=== PATIENT | female | born 1960 | race Caucasian/White ===

== ENCOUNTER 2022-10-24 11:48 | Emergency (ER) | payer OTHER ==
--- OUTSIDE RECORDS SUMMARY | 2022-10-24 11:52 | XMS REPORT | Continuity of Care Document ---
:1960 Author Organization [facility] t Address [address] [place] [address] Care Team Providers Name Role Phone Leonel Boucher Attending Clinician Unavailable Doctor Unassigned, Tobias Attending Clinician Unavailable Payers Payer Name Policy Type Policy Number Effective Date Expiration Date S ource Problems Condition Condition Condition Status Onset Resolution Last Treating Co mments Source Name Details Category Date Date Treatment Clinician Date Total knee Total knee Disease Active U nivers replacemen replacemen 6-06 it y of t status t status 00:00: [place] 00 [facility] Knee pain, Knee pain, Disease Active U nivers left left 3-18 ity of 00:00: [place] 00 Medical Branch Allergies, Adverse Reactions, Alerts Allergy Allergy Status Severity Reaction(s) Onset Inactive Treating Comm ents Source Name Type Date Date Clinician Iodine Propensi Active Hives Topical Univers ty to 2-26 ity of adverse 00:00: [place] reaction 00 Medical s to Branch drug Social History Social Habit Start Date Stop Date Quantity Comments Source History of tobacco Cigarette Smoker University of use [facility] Cigarettes smoked 2017-07-26 2017-07-26 Univers ity of current (pack per 00:00:00 00:00:00 ) - Reported Branch Tobacco use and 2017-07-26 2017-07-26 Never used [facility] y of exposure 00:00:00 00:00:00 [facility] Alcohol intake 2017-07-26 2017-07-26 Current University of 00:00:00 00:00:00 non-drinker of [facility] alcohol Branch (finding) Smoking Status Start Date Stop Date Source Current every day smoker 2017-07-26 00:00:00 [facility] [place] [facility] Medications Ordered Filled Start Stop Current Ordering Indication Dosage Frequency Signature Comments Components Source Medication Medication Date Date Medication? Clinician (SIG) Name Name FLUoxetine 2016-08 Yes 40mg Take 40 mg U nivers (PROZAC) 40 2-07 by mouth ity of mg capsule 20:29: daily. [place] 36 Medical Branch zolpidem 2016-08 Yes 10mg Take 10 mg Uni vers (AMBIEN) 10 2-07 by mouth ity of mg tablet 20:29: at [place]time [place] 36 as needed Medical for Branch Insomnia. clonazePAM 2016-08 Yes 2mg Take 2 mg Un [facility] (KLONOPIN) 2-07 by mouth 2 ity of 2 mg tablet 20:29: (two) [place] 36 times Medical daily. Branch buprenorphi 2016-[address] 8 mg Univers ne-naloxone 2-07 under the ity of (SUBOXONE) 20:29: tongue 2 Steven as 8-2 mg 36 (two) Medical sublingual times Branch tablet daily. FERROUS 2016-08 Yes 1{tbl} Take 1 Univer s SULFATE, 2-07 tablet by ity of DRIED 20:29: mouth 2 [place] (IRON, 36 (two) Medical DRIED, times Branch ORAL) daily. DOCOSAHEXAN 2016-08 Yes 1{tbl} Take 1 Un [facility] OIC 2-07 tablet by ity of ACID/EPA 20:29: mouth 2 [place] (FISH OIL 36 (two) Medical ORAL) times Branch daily. oxybutynin 2016-08 Yes 5mg Take 5 mg [facility] chloride 2-07 by mouth 3 ity o f (DITROPAN) 20:29: (three[place] 5 [place] tablet 36 times Medical daily. Branch docusate 2016-08 Yes 100mg Take 100 Univ ers (COLACE) 2-07 mg by ity of 100 mg 20:29: mouth once [place] capsule 36 daily as Medical needed for Branch Constipati on. acetaminoph Yes 1{tbl} Take 1 Un [facility] en-codeine 6-09 tablet by ity of (TYLENOL 00:00: mouth [place] #3) 300-30 00 every 4 Medica l mg tablet (four) Branch hours as needed for Pain (scale 7-10). Immunizations Ordered Filled Immunization Date Status Comments [facility] e Immunization Name Name Pneumococcal 2016-01-27 Completed University o f Polysaccharide, 00:00:00 [place] Med ical PPSV23 (PNEUMOVAX) Branch Procedures Procedure Date / Time Performed Performing Clinician [facility] e REFERRAL- 2020-06-24 06:01:00 Doctor Unalouie, Meghan Wakefield [facility] REQUEST/RESPONSE Name Medical Branch Encounters Start End Encounter Admission Attending Care Care Encounter Source Date/Time Date/Time Type Type Clinicians Facility Department ID 2021-09-[address] [id number] Common 12:44:00 Leonel [id number] [facility] 2021-09-14 Outpatient Citlaly [facility] [id number] 02 Common 12:06:22 Leonel [id number] [facility] 2021-09-14 Outpatient Citlaly [facility] [id number] 02 Common 12:06:03 Leonel [address] [facility] 2020-06-24 2020-06-24 Orders Doctor ALKA [id number] [facility] 00:00:00 00:00:00 Only Unassigned, SUHA [id number] ity of Tobias [facility] [id number] Steven as [phone] [facility] kirk 009 Branch 2020-06-24 2020-06-24 Orders Doctor ALKA [id number] 00:00:00 00:00:00 Only Unassigned, SUHA [id number] Tobias [facility] [id number] 009 Results This patient has no known results.
[2022-10-24] MEDS ORDERED: DIAZEPAM 5 MG TABLET ONE (12:40)
[2022-10-24] MEDS ORDERED: dexAMETHasone 10 MG/ML VIAL ONE (12:40)
[2022-10-24] MEDS ORDERED: MORPHINE 4 MG/ML SYR ONE (12:40)
[2022-10-24] MEDS ORDERED: NA CHLORIDE 0.9% 500 ML ONE (12:41)
[2022-10-24] MEDS ORDERED: KETOROLAC 30 MG/ML INJ ONE (12:41)
[2022-10-24] MEDS ORDERED: ONDANSETRON 4 MG/2 ML VIAL ONE (12:41)
--- NOTE | 2022-10-24 12:47 | RAD REPORT ---
EXAM DESCRIPTION: CT - Spine Lumbar Wo Con - 10/24/2022 12:20 pm CLINICAL HISTORY: Radiculopathy. PAIN COMPARISON: No comparisons TECHNIQUE: Axial noncontrast CT imaging of the lumbar spine was performed with coronal and sagittal re-formatted images. All CT scans are performed using dose optimization technique as appropriate and may include automated exposure control or mA/KV adjustment according to patient size. FINDINGS: No acute lumbar spine fracture seen. No aggressive marrow pattern or malalignment. Paraspinal tissues are normal in thickness. No paraspinal abscess or hematoma seen. Advanced multilevel degenerative changes are present throughout the lumbar spine with disc thinning, vacuum disc degeneration and prominent posterior osteophytes. There is moderate central canal stenosi s present involving the L3-4 level. IMPRESSION: No acute lumbar spine abnormality observed. Advanced multilevel degenerative spondylosis of the lumbar spine. Probable central spinal canal steno sis L3-4.
[2022-10-24 13:08] LABS: Absolute Lymphocytes (CBC) 1.5 K/uL (0.7-4.9); Hematocrit 35.7 % (36.0-45.0); Lymphocytes % 28.5 % (15.3-44.8); MCV 87.4 fL (80-100); MPV 8.1 fL (7.6-11.3); RBC Red Blood Cell Count 4.08 M/uL (3.86-4.86)
[2022-10-24 13:30] LABS: Albumin 3.8 g/dL (3.4-5.0); Bilirubin Total 0.3 mg/dL (0.2-1.0); Potassium 3.5 mmol/L (3.5-5.1); Protein, Total 7.3 g/dL (6.4-8.2)
[2022-10-24 14:47] LABS: Urine Blood Trace-intact (Negative); Urine Glucose Negative (Negative); Urine Protein Trace (Negative); Urine Specific Gravity 1.025 (1.005-1.030)
[2022-10-24 15:38] VITALS: TEMP 97.9
[2022-10-24 15:40] VITALS: BP 109/79; O2SAT 98
--- NOTE | 2022-11-10 14:09 | ER ---
Nurse's Notes [facility] Name: Kelly Reddy Age: 62 yrs Sex: Female : 1960 Arrival Date: 10/24/2022 Time: 11:52 Bed 12 Private MD: Diagnosis: Spinal stenosis, lumbar region without neurogenic claudication;Low back pain Presentation: 10/24 12:01 Chief complaint: Patient states: Spinal stenosis progression - pt reports having to ld1 crawl/can barely walk due to pain. Coronavirus screen: At this time, the client does not indicate any symptoms associated with coronavirus-19. Ebola Screen: No symptoms or risks identified at this time. Initial Sepsis Screen: Does the patient meet any 2 criteria? No. Patient's initial sepsis screen is negative. Does the patient have a suspected source of infection? No. Patient's initial sepsis screen is negative. Risk Assessment: Do you want to hurt yourself or someone else? Patient reports no desire to harm self or others. Onset of symptoms was October 24, 2022. 12:01 Method Of Arrival: Wheelchair ld1 12:01 Acuity: JESSICA 3 ld1 Triage Assessment: 12:03 General: Appears in no apparent distress. comfortable, Behavior is calm, cooperative, ld1 appropriate for age. Pain: Complains of pain in back Pain does not radiate. Pain currently is 8 out of 10 on a pain scale. Quality of pain is described as squeezing, Is continuous. EENT: No signs and/or symptoms were reported regarding the EENT system. Neuro: Level of Consciousness is awake, alert, obeys commands, Oriented to person, place, time, situation. Cardiovascular: Capillary refill < 3 seconds Patient's skin is warm and dry. Respiratory: Airway is patent Respiratory effort is even, unlabored. GI: Abdomen is round non-distended. : No signs and/or symptoms were reported regarding the genitourinary system. Derm: No signs and/or symptoms reported regarding the dermatologic system. Musculoskeletal: No signs and/or symptoms reported regarding the musculoskeletal system. Historical: - Allergies: 12:00 Iodine; ld1 - PMHx: 12:00 Anemia; Bladder problem; Hypertension; Spinal stenosis; ld1 - PSHx: 12:00 Tubal ligation; ld1 - Immunization history:: Adult Immunizations up to date, Client reports receiving the 2nd dose of the Covid vaccine. - Social history:: Smoking status: Patient reports the use of cigarette tobacco products, smokes one-half pack cigarettes per day, Patient/guardian denies using alcohol. Assessment: 13:00 Reassessment: Patient appears in no apparent distress at this time. Patient and/or kr3 family updated on plan of care and expected duration. Pain level reassessed. 14:10 Reassessment: No changes from previously documented assessment. Patient and/or family kr3 updated on plan of care and expected duration. Pain level reassessed. Patient is alert, oriented x 3, equal unlabored respirations, skin warm/dry/pink. Patient states symptoms have improved. Vital Signs: 12:01 BP 108 / 68; Pulse 87; Resp 18; Temp 97.9(TE); Pulse Ox 96% on R/A; Weight 72.57 kg; ld1 Height 5 ft. 6 in. ; Pain 8/10; 13:00 BP 92 / 71; Pulse 70; Resp 17; Pulse Ox 97% on R/A; kr3 14:11 BP 109 / 79; Pulse 72; Resp 17; Pulse Ox 98% on R/A; kr3 12:01 Body Mass Index 25.82 (72.57 kg, 167.64 cm) ld1 12:01 Pain Scale: Adult ld1 ED Course: 11:52 Patient arrived in ED. mr 12:03 Triage completed. ld1 12:03 Arm band placed on right wrist. ld1 12:04 Ryan Fuller MD is Attending Physician. anh 12:33 Laurence Garcia RN is Primary Nurse. kr3 14:08 Arnulfo Hanna MD is Referral Physician. anh 15:10 IV discontinued, intact, bleeding controlled, No redness/swelling at site. Pressure mb9 dressing applied. Administered Medications: 12:45 Drug: Diazepam PO 10 mg Route: PO; kr3 12:55 Drug: NS 0.9% IV 500 ml Route: IV; Rate: bolus; Site: right forearm; kr3 13:11 Drug: Ondansetron IVP 4 mg Route: IVP; Site: right forearm; kr3 13:12 Drug: Decadron - Dexamethasone IVP 10 mg Route: IVP; Site: right forearm; kr3 13:15 Drug: morphine IVP or IV 4 mg Route: IVP; Infused Over: 4 mins; Site: right forearm; kr3 13:19 Drug: Ketorolac IVP 30 mg Route: IVP; Site: right forearm; kr3 Outcome: 14:09 Discharge ordered by MD. kamara 15:10 Discharged to home via wheelchair. mb9 15:10 Condition: stable 15:10 Discharge instructions given to patient, Instructed on discharge instructions, follow up and referral plans. Demonstrated understanding of instructions, follow-up care, medications, Prescriptions given X 4. 15:10 Patient left the ED. mb9 Signatures: Ryan Fuller MD MD cha Rivera, Mary mr Dibbern, Lauren, RN RN ld1 Laurence Garcia RN RN les3 Makenna Ambriz RN RN mb9 Corrections: (The following items were deleted from the chart) 12:01 12:00 PSHx: None; ld1 ld1
--- NOTE | 2022-11-10 14:09 | EDPHYS ---
Physician Documentation [facility] Name: Kelly Reddy Age: 62 yrs Sex: Female : 1960 Arrival Date: 10/24/2022 Time: 11:52 Bed 12 Private MD: ED Physician Ryan Fuller HPI: 10/24 14:03 This 62 yrs old Female presents to ER via Wheelchair with complaints of anh Trouble Walking, back problem. 14:03 The patient presents to the emergency department with. anh Historical: - Allergies: 12:00 Iodine; ld1 - PMHx: 12:00 Anemia; Bladder problem; Hypertension; Spinal stenosis; ld1 - PSHx: 12:00 Tubal ligation; ld1 - Immunization history:: Adult Immunizations up to date, Client reports receiving the 2nd dose of the Covid vaccine. - Social history:: Smoking status: Patient reports the use of cigarette tobacco products, smokes one-half pack cigarettes per day, Patient/guardian denies using alcohol. ROS: 14:04 Constitutional: Negative for fever, chills, and weight loss, Eyes: Negative for injury, anh pain, redness, and discharge, ENT: Negative for injury, pain, and discharge, Neck: Negative for injury, pain, and swelling, Cardiovascular: Negative for chest pain, palpitations, and edema, Respiratory: Negative for shortness of breath, cough, wheezing, and pleuritic chest pain, Abdomen/GI: Negative for abdominal pain, nausea, vomiting, diarrhea, and constipation, : Negative for injury, bleeding, discharge, and swelling, MS/Extremity: Negative for injury and deformity, Skin: Negative for injury, rash, and discoloration, Neuro: Negative for headache, weakness, numbness, tingling, and seizure, Psych: Negative for depression, anxiety, suicide ideation, homicidal ideation, and hallucinations, Allergy/Immunology: Negative for hives, rash, and allergies, Endocrine: Negative for neck swelling, polydipsia, polyuria, polyphagia, and marked weight changes, Hematologic/Lymphatic: Negative for swollen nodes, abnormal bleeding, and unusual bruising. 14:04 Back: Positive for decreased range of motion, pain at rest, pain with movement. Exam: 14:04 Constitutional: This is a well developed, well nourished patient who is awake, alert, anh and in no acute distress. Head/Face: Normocephalic, atraumatic. Eyes: Pupils equal round and reactive to light, extra-ocular motions intact. Lids and lashes normal. Conjunctiva and sclera are non-icteric and not injected. Cornea within normal limits. Periorbital areas with no swelling, redness, or edema. ENT: Nares patent. No nasal discharge, no septal abnormalities noted. Tympanic membranes are normal and external auditory canals are clear. Oropharynx with no redness, swelling, or masses, exudates, or evidence of obstruction, uvula midline. Mucous membranes moist. Neck: Trachea midline, no thyromegaly or masses palpated, and no cervical lymphadenopathy. Supple, full range of motion without nuchal rigidity, or vertebral point tenderness. No Meningismus. Chest/axilla: Normal chest wall appearance and motion. Nontender with no deformity. No lesions are appreciated. Cardiovascular: Regular rate and rhythm with a normal S1 and S2. No gallops, murmurs, or rubs. Normal PMI, no JVD. No pulse deficits. Respiratory: Lungs have equal breath sounds bilaterally, clear to auscultation and percussion. No rales, rhonchi or wheezes noted. No increased work of breathing, no retractions or nasal flaring. Abdomen/GI: Soft, non-tender, with normal bowel sounds. No distension or tympany. No guarding or rebound. No evidence of tenderness throughout. Female : Normal external genitalia. Skin: Warm, dry with normal turgor. Normal color with no rashes, no lesions, and no evidence of cellulitis. MS/ Extremity: Pulses equal, no cyanosis. Neurovascular intact. Full, normal range of motion. Neuro: Awake and alert, GCS 15, oriented to person, place, time, and situation. Cranial nerves II-XII grossly intact. Motor strength 5/5 in all extremities. Sensory grossly intact. Cerebellar exam normal. Normal gait. Psych: Awake, alert, with orientation to person, place and time. Behavior, mood, and affect are within normal limits. 14:04 Musculoskeletal/extremity: DVT Exam: No signs of deep vein thrombosis. no pain, no swelling, no tenderness, negative Homans' sign noted on exam, no appreciated bluish discoloration, no erythema, no increased warmth. Vital Signs: 12:01 BP 108 / 68; Pulse 87; Resp 18; Temp 97.9(TE); Pulse Ox 96% on R/A; Weight 72.57 kg; ld1 Height 5 ft. 6 in. ; Pain 8/10; 13:00 BP 92 / 71; Pulse 70; Resp 17; Pulse Ox 97% on R/A; kr3 14:11 BP 109 / 79; Pulse 72; Resp 17; Pulse Ox 98% on R/A; kr3 12:01 Body Mass Index 25.82 (72.57 kg, 167.64 cm) ld1 12:01 Pain Scale: Adult ld1 MDM: 12:[address] [facility] 14:05 Differential diagnosis: contusion, Fracture. Data reviewed: vital signs, nurses notes. [facility] Consideration of Admission/Observation Escalation of care including admission/observation considered. Management of patient was discussed with the following: Ict Educator: WILLIS VERAS. I considered the following discharge prescriptions or medication management in the emergency department Medications were administered in the Emergency Department. See MAR. Test considered but Not performed: MRI: MRI LUMBAR SPINE. Historians other than the Patient: Family Member: . Care significantly affected by the following chronic conditions: ANEMIA , BLADDER PROBLEMS, SPINAL STENOSIS. 10/24 12:06 Order name: CBC with Diff [facility] 10/24 12:06 Order name: Comprehensive Metabolic Panel [facility] 10/24 12:06 Order name: Lipase [facility] 10/24 13:08 Order name: CBC with Automated Diff; Complete Time: 14:02 EDIL 10/24 13:31 Order name: Comprehensive Metabolic Panel; Complete Time: 14:02 EDIL 10/24 13:31 Order name: Lipase; Complete Time: 14:02 EDIL 10/24 14:47 Order name: Urine Dipstick-Ancillary [facility] 10/24 12:07 Order name: CT Lumbar Spine Wo Con [facility] 10/24 12:47 Order name: CT; Complete Time: 12:56 EDIL 10/24 12:06 Order name: Urine Dipstick-Ancillary (obtain specimen); Complete Time: 14:49 [facility] Administered Medications: 12:45 Drug: Diazepam PO 10 mg Route: PO; kr3 12:55 Drug: NS 0.9% IV 500 ml Route: IV; Rate: bolus; Site: right forearm; kr3 13:11 Drug: Ondansetron IVP 4 mg Route: IVP; Site: right forearm; kr3 13:12 Drug: Decadron - Dexamethasone IVP 10 mg Route: IVP; Site: right forearm; kr3 13:15 Drug: morphine IVP or IV 4 mg Route: IVP; Infused Over: 4 mins; Site: right forearm; kr3 13:19 Drug: Ketorolac IVP 30 mg Route: IVP; Site: right forearm; kr3 Disposition Summary: 10/24/22 14:09 Discharge Ordered Location: Home anh Problem: new anh Symptoms: have improved anh Condition: Stable anh Diagnosis - Spinal stenosis, lumbar region without neurogenic claudication anh - Low back pain anh Followup: anh - With: Private Physician - When: 2 - 3 days - Reason: Recheck today's complaints, Continuance of care, Re-evaluation by your physician Followup: anh - With: Arnulfo Hanna MD - When: 2 - 3 days - Reason: Recheck today's complaints, Re-evaluation by your physician Discharge Instructions: - Discharge Summary Sheet anh - Acute Back Pain, Adult anh - Chronic Back Pain anh - Musculoskeletal Pain anh - Spinal Stenosis anh - Chronic Back Pain, [id number] nah - Spinal Stenosis, [id number] [facility] Forms: - Medication Reconciliation Form [facility] - Thank You Letter [facility] - Antibiotic Education [facility] - Prescription Opioid Use [facility] Prescriptions: - dexamethasone 2 mg Oral tablet - take 2 tablet by ORAL route daily; 8 tablet; Refills: 0, Product Selection [facility] Permitted - acetaminophen-codeine 300-15 mg Oral tablet - take 2 tablet by ORAL route every 6 hours as needed for pain; 20 tablet; [facility] Refills: 0, Product Selection Permitted - Valium 5 mg Oral Tablet - take 1 tablet by ORAL route every 8 hours As needed; 20 tablet; Refills: 0, [facility] Product Selection Permitted - Diclofenac Sodium 75 mg Oral Tablet Sustained Release - take 1 tablet by ORAL route 2 times per day; 30 tablet; Refills: 0, Product [facility] Selection Permitted Signatures: Dispatcher [employer] Ryan Yan MD MD cha Dibbern, Lauren, RN RN ld1 Laurence Garcia RN RN kr3 Corrections: (The following items were deleted from the chart) 12:01 12:00 PSHx: None; ld1 ld1
== END 2022-10-24 15:10 | disposition home or self-care (01) ==
LOC: ER 11:48
DX: M48.062 Spinal stenosis, lumbar region with neurogenic claudication (principal); F17.210 Nicotine dependence, cigarettes, uncomplicated; Z91.048 Other nonmedicinal substance allergy status
CPT/HCPCS: 85025; 36415; 81003; 83690; 80053; 72131; 96375; 96374; 99283; J1100; J2405; J7040

== ENCOUNTER 2022-11-07 13:55 | Emergency (ER) | payer OTHER ==
--- OUTSIDE RECORDS SUMMARY | 2022-11-07 14:17 | XMS REPORT | Continuity of Care Document ---
:1960 Author Organization [facility] [place] t Address [address] [place] [address] Care Team Providers Name Role Phone Leonel Boucher Attending Clinician Unavailable Doctor Unassigned, [place] Attending Clinician Unavailable Payers Payer Name Policy Type Policy Number Effective Date Expiration Date S ource Problems Condition Condition Condition Status Onset Resolution Last Treating Co mments Source Name Details Category Date Date Treatment Clinician Date Total knee Total knee Disease Active U nivers replacemen replacemen 6-06 it y of t status t status 00:00: [place] 00 [facility] Knee pain, Knee pain, Disease Active U nivers left left 3-18 ity of 00:00: [place] 00 Medical [place] Allergies, Adverse Reactions, Alerts Allergy Allergy Status Severity Reaction(s) Onset Inactive Treating Comm ents Source Name Type Date Date Clinician Iodine Propensi Active Hives Topical Univers ty to 2-26 ity of adverse 00:00: [place] reaction 00 Medical s to Branch drug Social History Social Habit Start Date Stop Date Quantity Comments Source History of tobacco Cigarette Smoker University of use [facility] Cigarettes smoked 2017-07-26 2017-07-26 Univers ity of current (pack per 00:00:00 00:00:00 ) - Reported Branch Tobacco use and 2017-07-26 2017-07-[address] [facility] y of exposure 00:00:00 00:00:00 [facility] Alcohol intake 2017-07-26 2017-07-26 Current University of 00:00:00 00:00:00 non-drinker of [facility] alcohol Branch (finding) Smoking Status Start Date Stop Date Source Current every day smoker 2017-07-26 00:00:00 [facility] [place] Medical Branch Medications Ordered Filled Start Stop [...] tablet by ity of (TYLENOL 00:00: mouth [place] #3) 300-30 00 every 4 Medica l mg tablet (four) Branch hours as needed for Pain (scale 7-10). Immunizations Ordered Filled Immunization Date Status Comments [facility] e Immunization Name Name Pneumococcal 2016-01-27 Completed University o f Polysaccharide, 00:00:00 [place] Med ical PPSV23 (PNEUMOVAX) Branch Procedures Procedure Date / Time Performed Performing Clinician [facility] e REFERRAL- 2020-06-24 06:01:00 Doctor Johnny[facility] REQUEST/RESPONSE Name Medical Branch Encounters Start End Encounter Admission Attending Care Care Encounter Source Date/Time Date/Time Type Type Clinicians Facility Department ID 2021-09-14 [facility] [id number] 02 Common 12:44:00 Leonel [id number] [facility] 2021-09-14 [facility] [id number] 02 Common 12:06:22 Leonel [id number] [facility] 2021-09-14 [id number] 02 Common 12:06:03 Leonel [id number] [facility] 2020-06-24 2020-06-24 Orders Doctor ALKA [id number] [facility] 00:00:00 00:00:00 Only Unassigned, SUHA [id number] ity of [place] [facility] [id number] Steven as [phone] [facility] 009 Branch 2020-06-24 2020-06-24 Orders Doctor ALKA [id number] 00:00:00 00:00:00 Only Unassigned, SUHA [id number] [place] [facility] [id number] 009 Results This patient has no known results.
--- NOTE | 2022-11-07 14:56 | EDPHYS ---
Physician Documentation [facility] Name: Kelly Reddy Age: 62 yrs Sex: Female : 1960 Arrival Date: 11/07/2022 Time: 13:59 Bed IW4 Private MD: David Ortega E ED Physician Ryan Fuller HPI: 11/07 14:51 This 62 yrs old Female presents to ER via Wheelchair with complaints of Back anh Pain. 14:51 The patient presents with pain that is chronic. The symptoms are located in the low anh back, lumbar spine. Onset: The symptoms/episode began/occurred 2 week(s) ago. The pain does not radiate. The problem was sustained from unknown cause. Severity of symptoms: At their worst the symptoms were mild, moderate, in the emergency department the symptoms are unchanged. The patient has experienced similar episodes in the past, multiple times. Historical: - Allergies: 14:33 Iodine; vg1 - PMHx: 14:33 Anemia; Bladder problem; Hypertension; spinal stenosis; vg1 - PSHx: 14:33 tubal ligation; vg1 - Immunization history:: Client reports receiving the 2nd dose of the Covid vaccine. - Social history:: Smoking status: Patient reports the use of cigarette tobacco products, smokes one pack cigarettes per day. - Family history:: not pertinent. ROS: 14:51 Constitutional: Negative for fever, chills, and weight loss, Eyes: Negative for injury, anh pain, redness, and discharge, ENT: Negative for injury, pain, and discharge, Neck: Negative for injury, pain, and swelling, Cardiovascular: Negative for chest pain, palpitations, and edema, Respiratory: Negative for shortness of breath, cough, wheezing, and pleuritic chest pain, Abdomen/GI: Negative for abdominal pain, nausea, vomiting, diarrhea, and constipation, : Negative for injury, bleeding, discharge, and swelling, MS/Extremity: Negative for injury and deformity, Skin: Negative for injury, rash, and discoloration, Neuro: Negative for headache, weakness, numbness, tingling, and seizure, Psych: Negative for depression, anxiety, suicide ideation, homicidal ideation, and hallucinations, Allergy/Immunology: Negative for hives, rash, and allergies, Endocrine: Negative for neck swelling, polydipsia, polyuria, polyphagia, and marked weight changes, Hematologic/Lymphatic: Negative for swollen nodes, abnormal bleeding, and unusual bruising. 14:51 Back: Positive for decreased range of motion, pain at rest, pain with movement, of the thoracic area and lumbar area. Exam: 14:51 Constitutional: This is a well developed, well nourished patient who is awake, alert, anh and in no acute distress. Head/Face: Normocephalic, atraumatic. Eyes: Pupils equal round and reactive to light, extra-ocular motions intact. Lids and lashes normal. Conjunctiva and sclera are non-icteric and not injected. Cornea within normal limits. Periorbital areas with no swelling, redness, or edema. ENT: Nares patent. No nasal discharge, no septal abnormalities noted. Tympanic membranes are normal and external auditory canals are clear. Oropharynx with no redness, swelling, or masses, exudates, or evidence of obstruction, uvula midline. Mucous membranes moist. Neck: Trachea midline, no thyromegaly or masses palpated, and no cervical lymphadenopathy. Supple, full range of motion without nuchal rigidity, or vertebral point tenderness. No Meningismus. Chest/axilla: Normal chest wall appearance and motion. Nontender with no deformity. No lesions are appreciated. Cardiovascular: Regular rate and rhythm with a normal S1 and S2. No gallops, murmurs, or rubs. Normal PMI, no JVD. No pulse deficits. Respiratory: Lungs have equal breath sounds bilaterally, clear to auscultation and percussion. No rales, rhonchi or wheezes noted. No increased work of breathing, no retractions or nasal flaring. Abdomen/GI: Soft, non-tender, with normal bowel sounds. No distension or tympany. No guarding or rebound. No evidence of tenderness throughout. Female : Normal external genitalia. Skin: Warm, dry with normal turgor. Normal color with no rashes, no lesions, and no evidence of cellulitis. MS/ Extremity: Pulses equal, no cyanosis. Neurovascular intact. Full, normal range of motion. Neuro: Awake and alert, GCS 15, oriented to person, place, time, and situation. Cranial nerves II-XII grossly intact. Motor strength 5/5 in all extremities. Sensory grossly intact. Cerebellar exam normal. Normal gait. Psych: Awake, alert, with orientation to person, place and time. Behavior, mood, and affect are within normal limits. 14:51 Back: pain, that is moderate, ROM is painful, with flexion, with extension, normal spinal alignment noted, CVA tenderness, is absent, muscle spasm, is appreciated in the left low back, left mid back, right mid back and right low back. Vital Signs: 14:27 BP 96 / 73; Pulse 80; Resp 16; Temp 98(O); Pulse Ox 97% on R/A; Weight 72.57 kg; Height vg1 5 ft. 6 in. ; Pain 10/10; 16:15 BP 100 / 75; Pulse 72; Resp 16; Pulse Ox 97% on R/A; vg1 14:27 Body Mass Index 25.82 (72.57 kg, 167.64 cm) vg1 14:27 Pain Scale: Adult vg1 MDM: 14:49 Patient medically screened. anh 14:51 Differential diagnosis: chronic back pain, Fatigue Fracture Osteoarthritis Osteomalacia anh Osteoporosis sprain, vertebral fracture. Data reviewed: vital signs, nurses notes. Consideration of Admission/Observation Escalation of care including admission/observation considered. Test considered but Not performed: Labs: no labs. Care significantly affected by the following chronic conditions: Hypertension, anemia, spinal stenosis. Administered Medications: 16:17 Drug: Dexamethasone IM 10 mg Route: IM; Site: left deltoid; vg1 16:55 Follow up: Response: No adverse reaction vg1 16:18 Drug: HYDROmorphone IM 2 mg Route: IM; Site: left deltoid; vg1 16:55 Follow up: Response: No adverse reaction vg1 16:20 Drug: Promethazine IM 25 mg Route: IM; Site: right deltoid; vg1 16:55 Follow up: Response: No adverse reaction vg1 16:23 Drug: Ketorolac IM 60 mg Route: IM; Site: left gluteus; vg1 16:55 Follow up: Response: No adverse reaction vg1 Disposition Summary: 11/07/22 14:55 Discharge Ordered Location: Home anh Problem: new anh Symptoms: have improved anh Condition: Stable anh Diagnosis - Chronic pain, not elsewhere classified anh - Spinal stenosis, thoracolumbar region anh Followup: anh - With: David Ortega MD - When: 2 - 3 days - Reason: Recheck today's complaints, Continuance of care, Re-evaluation by your physician Followup: anh - With: Chandler Osborn DO - When: 2 - 3 days - Reason: Recheck today's complaints, Re-evaluation by your physician Discharge Instructions: - Discharge Summary Sheet anh - Chronic Back Pain anh - Spinal Stenosis anh - Chronic Back Pain, Nvis-fh-Aend anh - Spinal Stenosis, Oleb-lo-Gden [facility] Forms: - Medication Reconciliation Form anh - Thank You Letter anh - Antibiotic Education [facility] - Prescription Opioid Use [facility] Prescriptions: - acetaminophen-codeine 300-30 mg Oral tablet - take 2 tablet by ORAL route every 6 hours; 24 tablet; Refills: 0, Product [facility] Selection Permitted - dexamethasone 2 mg Oral tablet - take 1 tablet by ORAL route every 12 hours; 10 tablet; Refills: 0, Product [facility] Selection Permitted - diclofenac sodium 50 mg Oral tablet, delayed release (enteric coated) - take 1 tablet by ORAL route 2 times per day; 14 tablet; Refills: 0, Product [facility] Selection Permitted Signatures: Ryan Fuller MD MD cha Garcia, Victoria RN RN vg1
--- NOTE | 2022-11-07 14:56 | ER ---
Nurse's Notes [facility] Name: Kelly Reddy Age: 62 yrs Sex: Female : 1960 Arrival Date: 11/07/2022 Time: 13:59 Bed IW4 Private MD: David Ortega E Diagnosis: Chronic pain, not elsewhere classified;Spinal stenosis, thoracolumbar region Presentation: 11/07 14:27 Chief complaint: Patient states: stated spinal stenosis and chronic back pain, states vg1 unable to walk and pain is unbearable. Coronavirus screen: Vaccine status: Patient reports receiving the 2nd dose of the covid vaccine. Client denies travel out of the [place] in the last 14 days. Ebola Screen: Patient negative for fever greater than or equal to 101.5 degrees Fahrenheit, and additional compatible Ebola Virus Disease symptoms Patient denies exposure to infectious person. Patient denies travel to an Ebola-affected area in the 21 days before illness onset. Initial Sepsis Screen: Does the patient meet any 2 criteria? No. Patient's initial sepsis screen is negative. Does the patient have a suspected source of infection? No. Patient's initial sepsis screen is negative. Risk Assessment: Do you want to hurt yourself or someone else? Patient reports no desire to harm self or others. Onset of symptoms was November 07, 2022. 14:27 Method Of Arrival: Wheelchair vg1 14:27 Acuity: JESSICA 3 vg1 Triage Assessment: 14:33 General: Appears in no apparent distress. uncomfortable, Behavior is calm, cooperative. vg1 Pain: Complains of pain in back Pain currently is 10 out of 10 on a pain scale. Neuro: Level of Consciousness is awake, alert, obeys commands, Oriented to person, place, time, situation. Respiratory: Airway is patent Respiratory effort is even, unlabored. Musculoskeletal: Circulation, motion, and sensation intact. Historical: - Allergies: 14:33 Iodine; vg1 - PMHx: 14:33 Anemia; Bladder problem; Hypertension; spinal stenosis; vg1 - PSHx: 14:33 tubal ligation; vg1 - Immunization history:: Client reports receiving the 2nd dose of the Covid vaccine. - Social history:: Smoking status: Patient reports the use of cigarette tobacco products, smokes one pack cigarettes per day. - Family history:: not pertinent. Assessment: 16:15 Reassessment: Patient appears in no apparent distress at this time. No changes from vg1 previously documented assessment. Patient and/or family updated on plan of care and expected duration. Pain level reassessed. Patient is alert, oriented x 3, equal unlabored respirations, skin warm/dry/pink. Vital Signs: 14:27 BP 96 / 73; Pulse 80; Resp 16; Temp 98(O); Pulse Ox 97% on R/A; Weight 72.57 kg; Height vg1 5 ft. 6 in. ; Pain 10/10; 16:15 BP 100 / 75; Pulse 72; Resp 16; Pulse Ox 97% on R/A; vg1 14:27 Body Mass Index 25.82 (72.57 kg, 167.64 cm) vg1 14:27 Pain Scale: Adult vg1 ED Course: 13:59 Patient arrived in ED. mr 13:59 David Ortega MD is Private Physician. mr 14:18 Ryan Fuller MD is Attending Physician. [facility] 14:33 Triage completed. vg1 14:33 Arm band placed on. vg1 14:54 David Ortega MD is Referral Physician. [facility] 14:54 Chandler Osborn DO is Referral Physician. [facility] Administered Medications: 16:17 Drug: Dexamethasone IM 10 mg Route: IM; Site: left deltoid; vg1 16:55 Follow up: Response: No adverse reaction vg1 16:18 Drug: HYDROmorphone IM 2 mg Route: IM; Site: left deltoid; vg1 16:55 Follow up: Response: No adverse reaction vg1 16:20 Drug: Promethazine IM 25 mg Route: IM; Site: right deltoid; vg1 16:55 Follow up: Response: No adverse reaction vg1 16:23 Drug: Ketorolac IM 60 mg Route: IM; Site: left gluteus; vg1 16:55 Follow up: Response: No adverse reaction vg1 Outcome: 14:55 Discharge ordered by . [facility] 16:55 Patient left the ED. 1 Signatures: Ryan Fuller MD MD cha Rivera, Mary Vilma Hall, RN RN vg1
[2022-11-07] MEDS ORDERED: PROMETHAZINE INJ 25 MG/ML AMP ONE (16:15)
[2022-11-07] MEDS ORDERED: dexAMETHasone 10 MG/ML VIAL ONE (16:16)
[2022-11-07] MEDS ORDERED: KETOROLAC 30 MG/ML INJ ONE (16:16)
[2022-11-07] MEDS ORDERED: HYDROMORPHONE HCL 2 MG/ML inj ONE (16:16)
[2022-11-07 17:36] VITALS: TEMP 98; O2SAT 97
[2022-11-07 17:37] VITALS: BP 100/75
== END 2022-11-07 16:55 | disposition home or self-care (01) ==
LOC: ER 13:55
DX: G89.29 Other chronic pain (principal); M48.05 Spinal stenosis, thoracolumbar region; F17.210 Nicotine dependence, cigarettes, uncomplicated; Z91.048 Other nonmedicinal substance allergy status
CPT/HCPCS: J2550; J1170; J1100; 96372; 99282

== ENCOUNTER 2022-12-21 13:27 | Emergency (ER) | payer OTHER ==
--- OUTSIDE RECORDS SUMMARY | 2022-12-21 13:37 | XMS REPORT | Continuity of Care Document ---
:1960 Author Organization [facility] t Address [address] [place] [address] Care Team Providers Name Role Phone Leonel Boucher Attending Clinician Unavailable Doctor Unassigned, [place] Attending Clinician Unavailable Payers Payer Name Policy Type Policy Number Effective Date Expiration Date S ource Problems Condition Condition Condition Status Onset Resolution Last Treating Co mments Source Name Details Category Date Date Treatment Clinician Date Total knee Total knee Disease Active U nivers replacemen replacemen 6-06 it y of t status t status 00:00: [place] 00 [facility] Knee pain, Knee pain, Disease Active U nivers left left 3-18 ity of 00:00: [place] 00 [facility] [place] Allergies, Adverse Reactions, Alerts Allergy Allergy Status Severity Reaction(s) Onset Inactive Treating Comm ents Source Name Type Date Date Clinician Iodine Propensi Active Hives Topical Univers ty to 2-26 ity of adverse 00:00: [place] reaction 00 Medical s to Branch drug Social History Social Habit Start Date Stop Date Quantity Comments Source History of tobacco Cigarette Smoker University [facility] Cigarettes smoked 2017-07-26 2017-07-26 Univers ity of current (pack per 00:00:00 00:00:00 ) - Reported Branch Tobacco use and 2017-07-26 2017-07-26 Never used [facility] y of exposure 00:00:00 00:00:00 [facility] Alcohol intake 2017-07-26 2017-07-26 Current University of 00:00:00 00:00:00 non-drinker of [facility] alcohol Branch (finding) Smoking Status Start Date Stop Date Source Current every day smoker 2017-07-26 00:00:00 [facility] [place] [facility] Medications Ordered Filled Start Stop [...] tablet by ity of (TYLENOL 00:00: mouth [place] #3) 300-30 00 every 4 Medica l mg tablet (four) Branch hours as needed for Pain (scale 7-10). Immunizations Ordered Filled Immunization Date Status Comments [facility] e Immunization Name Name Pneumococcal 2016-01-27 Completed University o f Polysaccharide, 00:00:00 [place] Med ical PPSV23 (PNEUMOVAX) Branch Procedures Procedure Date / Time Performed Performing Clinician [facility] e REFERRAL- 2020-06-24 06:01:00 [facility] REQUEST/RESPONSE Name Medical Branch Encounters Start End Encounter Admission Attending Care Care Encounter Source Date/Time Date/Time Type Type Clinicians Facility Department ID 2021-09-14 [facility] [id number] Common 12:44:00 Leonel [id number] [facility] 2021-09-14 [facility] [id number] Common 12:06:22 eLonel [id number] [facility] 2021-09-14 [facility] [id number] 02 Common 12:06:03 Leonel [id number] [facility] 2020-06-24 2020-06-24 Orders Doctor ALKA [id number] [facility] 00:00:00 00:00:00 Only Unassigned, SUHA [id number] ity of [place] [facility] [id number] Steven as [id number] [facility] 009 Branch 2020-06-24 2020-06-24 Orders Doctor ALKA [id number] 00:00:00 00:00:00 Only Unassigned, SUHA [id number] [place] [facility] [phone] 009 Results This patient has no known results.
[2022-12-21] MEDS ORDERED: KETOROLAC 30 MG/ML INJ ONE (14:42)
[2022-12-21] MEDS ORDERED: HYDROCODONE/APAP 5/325 MG TAB ONE (14:42)
--- NOTE | 2022-12-21 15:09 | RAD REPORT ---
EXAM DESCRIPTION: RAD - Lumbar Spine 3 Views - 12/21/2022 3:00 pm CLINICAL HISTORY: Pain;Radiculopathy Radiculopathy COMPARISON: Lumbar Spine 3 Views dated 10/15/2017; Lumbar Spine 3 Views dated 04/13/2016; LUMBAR SPINE 3 VIEWS dated 11/13/2012; Spine Lumbar Wo Con dated 10/24/2022 FINDINGS: Multilevel degenerative changes are present with vacuum disc degeneration. Moderately levo scoliosis. No acute fracture is suspected. IMPRESSION: Advanced degenerative spondylosis and levoscoliosis of the lumbar spine.
--- NOTE | 2022-12-21 15:52 | EDPHYS ---
Physician Documentation [facility] Name: Kelly Reddy Age: 62 yrs Sex: Female : 1960 Arrival Date: 12/21/2022 Time: 13:27 Bed Treatment Private MD: David Ortega E ED Physician Stoney Granger HPI: 12/21 14:22 This 62 yrs old Female presents to ER via Wheelchair with complaints of Back Pain. rn 14:22 The patient presents with pain that is chronic, with no known mechanism of injury. The rn symptoms are located in the low back. Onset: The symptoms/episode began/occurred "since pandemic". The pain radiates to the right leg and left leg. Associated signs and symptoms: Pertinent negatives: abdominal pain, chest pain, dysuria, fever, headache, hematuria, incontinence, nausea, numbness, tingling, urinary retention, vomiting, weakness. Modifying factors: The patient symptoms are alleviated by nothing, the patient symptoms are aggravated by any movement. Severity of symptoms: At their worst the symptoms were moderate, in the emergency department the symptoms are unchanged. The patient has experienced similar episodes in the past. The patient has not recently seen a physician. Pt reports chronic back pain, "since pandemic", no injury, no new symptoms, reports her doctor is "all the way in [place]" and doesn't have a ride and is too hard to get there. Here today for pain management. No bowel/bladder problems. Has known spinal stenosis. No weakness of legs. . Historical: - Allergies: 13:54 Iodine; aa5 - PMHx: 13:54 Anemia; Bladder problem; Hypertension; spinal stenosis; aa5 13:55 Chronic back pain; aa5 - PSHx: 13:54 tubal ligation; aa5 - Family history:: not pertinent. - Hospitalizations: : No recent hospitalization is reported. ROS: 14:22 Constitutional: Negative for fever, chills, and weight loss, Cardiovascular: Negative rn for chest pain, palpitations, and edema, Respiratory: Negative for shortness of breath, cough, wheezing, and pleuritic chest pain, Abdomen/GI: Negative for abdominal pain, nausea, vomiting, diarrhea, and constipation, Back: + low back pain : Negative for injury, bleeding, discharge, and swelling, MS/Extremity: Negative for injury and deformity, Skin: Negative for injury, rash, and discoloration, Neuro: Negative for headache, weakness, numbness, tingling, and seizure. Exam: 14:22 Constitutional: overweight female, in wheelchair, no acute distress Head/Face: rn Normocephalic, atraumatic. Cardiovascular: Regular rate and rhythm. No pulse deficits. Respiratory: No increased work of breathing, no retractions or nasal flaring. Abdomen/GI: Soft, non-tender Back: No spinal tenderness. No costovertebral tenderness. + mild tenderness right lower back without swelling Skin: Warm, dry MS/ Extremity: Pulses equal, no cyanosis. Neurovascular intact. Full, normal range of motion. Equal circumference. Neuro: Awake and alert, GCS 15, oriented to person, place, time, and situation. Motor strength 5/5 in all extremities. Sensory grossly intact. Vital Signs: 13:54 BP 94 / 70; Pulse 87; Resp 16 S; Temp 98.2(TE); Pulse Ox 97% on R/A; aa5 14:43 BP 109 / 78; Pulse 84; Resp 16; Pulse Ox 100% ; mb9 MDM: 13:51 Patient medically screened. rn 15:50 Differential diagnosis: arthritis, chronic back pain, Fatigue Fracture Osteoarthritis rn ruptured disc, sprain. Data reviewed: vital signs, nurses notes, radiologic studies, plain films, and as a result, I will discharge patient. Counseling: I had a detailed discussion with the patient and/or guardian regarding: the historical points, exam findings, and any diagnostic results supporting the discharge/admit diagnosis, radiology results, the need for outpatient follow up, to return to the emergency department if symptoms worsen or persist or if there are any questions or concerns that arise at home. Response to treatment: the patient's symptoms have markedly improved after treatment, and as a result, I will discharge patient. Special discussion: I discussed with the patient/guardian in detail that at this point there is no indication for admission to the hospital. It is understood, however, that if the symptoms persist or worsen the patient needs to return immediately for re-evaluation. 12/21 14:22 Order name: XRAY Lumbar Spine (3 Views); Complete Time: 15:41 rn Administered Medications: 14:43 Drug: Ketorolac IM 30 mg Route: IM; Site: left deltoid; mb9 14:44 Drug: HYDROcodone-acetaminophen PO 5 mg-325 mg 1 tabs Route: PO; mb9 Disposition Summary: 12/21/22 15:51 Discharge Ordered Location: Home rn Problem: chronic rn Symptoms: have improved rn Condition: Stable rn Diagnosis - Low back pain rn - Spinal stenosis, lumbosacral region rn Followup: rn - With: Private Physician - When: As needed - Reason: Recheck today's complaints, Re-evaluation by your physician Discharge Instructions: - Discharge Summary Sheet rn - Chronic Back Pain rn - Musculoskeletal Pain rn Forms: - Medication Reconciliation Form rn - Thank You Letter rn - Antibiotic airborne weapons technical manager - Prescription Opioid Use rn Prescriptions: - Cyclobenzaprine 10 mg Oral Tablet - take 1 tablet by ORAL route every 8 hours As needed; 15 tablet; Refills: 0, rn Product Selection Permitted - Medrol (Srini) 4 mg Oral Tablets, Dose Pack - take 1 tablet by ORAL route as directed - follow package instructions; 1 rn packet; Refills: 0, Product Selection Permitted Signatures: Dispatcher [employer] Stoney Sapp MD MD rn Calderon, Audri RN RN aa5 Makenna Ambriz RN RN mb9
--- NOTE | 2022-12-21 15:52 | ER ---
Nurse's Notes [facility] Name: Kelly Reddy Age: 62 yrs Sex: Female : 1960 Arrival Date: 12/21/2022 Time: 13:27 Bed Treatment Private MD: David Ortega E Diagnosis: Low back pain;Spinal stenosis, lumbosacral region Presentation: 12/21 13:54 Chief complaint: Patient states: "I have spinal stenosis and my back has been hurting aa5 so bad over the last 2 days and I haven't been able to walk because of the pain". Coronavirus screen: At this time, the client does not indicate any symptoms associated with coronavirus-19. Ebola Screen: Patient denies travel to an Ebola-affected area in the 21 days before illness onset. Initial Sepsis Screen: Does the patient meet any 2 criteria? No. Patient's initial sepsis screen is negative. Does the patient have a suspected source of infection? No. Patient's initial sepsis screen is negative. Risk Assessment: Do you want to hurt yourself or someone else? Patient reports no desire to harm self or others. Onset of symptoms was December 2022. 13:54 Method Of Arrival: Wheelchair aa5 13:54 Acuity: JESSICA 3 aa5 Historical: - Allergies: 13:54 Iodine; aa5 - PMHx: 13:54 Anemia; Bladder problem; Hypertension; spinal stenosis; aa5 13:55 Chronic back pain; aa5 - PSHx: 13:54 tubal ligation; aa5 - Family history:: not pertinent. - Hospitalizations: : No recent hospitalization is reported. Screenin:03 [facility] ED Fall Risk Assessment (Adult) History of falling in the last 3 months, mb9 including since admission No falls in past 3 months (0 pts) Confusion or Disorientation No (0 pts) Intoxicated or Sedated No (0 pts) Impaired Gait No (0 pts) Mobility Assist Device Used No (0 pt) Altered Elimination No (0 pt) Score/Fall Risk Level 0 - 2 = Low Risk Oriented to surroundings, Maintained a safe environment, Educated pt \\T\\ family on fall prevention, incl call for assistance when getting out of bed. Abuse screen: Denies threats or abuse. Nutritional screening: No deficits noted. Tuberculosis screening: No symptoms or risk factors identified. Assessment: 15:40 Pain: Complains of pain in back Pain radiates to right leg and left leg Quality of pain mb9 is described as aching, Is chronic. Neuro: Level of Consciousness is awake, alert, obeys commands, Oriented to person, place, time, situation, Appropriate for age. Cardiovascular: Patient's skin is warm and dry. Respiratory: Airway is patent Respiratory effort is even, unlabored, Respiratory pattern is regular, symmetrical. Derm: Skin is pink, warm \\T\\ dry. Musculoskeletal: Range of motion: limited in left leg and right leg. Vital Signs: 13:54 BP 94 / 70; Pulse 87; Resp 16 S; Temp 98.2(TE); Pulse Ox 97% on R/A; aa5 14:43 BP 109 / 78; Pulse 84; Resp 16; Pulse Ox 100% ; mb9 ED Course: 13:28 Patient arrived in ED. am2 13:28 David Ortega MD is Private Physician. am2 13:51 Stoney Granger MD is Attending Physician. rn 13:54 Arm band placed on. aa5 13:55 Triage completed. aa5 15:00 XRAY Lumbar Spine (3 Views) In Process Unspecified. EDMS 15:45 Placed in gown. Bed in low position. Call light in reach. Side rails up X 1. Client mb9 placed on continuous cardiac and pulse oximetry monitoring. NIBP monitoring applied. 16:03 Makenna Ambriz, RUTH is Primary Nurse. mb9 16:04 No provider procedures requiring assistance completed. Patient did not have IV access mb9 during this emergency room visit. Administered Medications: 14:43 Drug: Ketorolac IM 30 mg Route: IM; Site: left deltoid; mb9 14:44 Drug: HYDROcodone-acetaminophen PO 5 mg-325 mg 1 tabs Route: PO; mb9 Medication: 16:04 VIS not applicable for this client. mb9 Outcome: 15:51 Discharge ordered by . rn 16:05 Discharged to home via wheelchair. mb9 16:05 Condition: stable 16:05 Discharge instructions given to patient, Instructed on discharge instructions, follow up and referral plans. Demonstrated understanding of instructions, follow-up care, medications, Prescriptions given X 2. 16:06 Patient left the ED. mb9 Signatures: Dispatcher [employer] EDMS Stoney Granger MD MD rn Calderon, Audri, RN RN aa5 Hiwot Sanchez am2 Makenna Ambriz, RN RN mb9
[2022-12-21 16:11] VITALS: TEMP 98.2
[2022-12-21 16:12] VITALS: BP 109/78; O2SAT 100
== END 2022-12-21 16:06 | disposition home or self-care (01) ==
LOC: ER 13:27
DX: M48.07 Spinal stenosis, lumbosacral region (principal); Z91.048 Other nonmedicinal substance allergy status
CPT/HCPCS: 72100; 96372; 99284

== ENCOUNTER 2023-06-08 12:38 | Emergency (ER) | payer OTHER ==
--- OUTSIDE RECORDS SUMMARY | 2023-06-08 12:42 | XMS REPORT | Continuity of Care Document ---
:1960 Author Organization [facility] t Address [address] [facility] [address] [place] [address] Care Team Providers Name Role Phone Brooke Dubose Primary Care Physician Leonel Boucher Attending Clinician Unavailable PAMELA MENG Attending Clinician Unavailable Brooke Dubose Attending Clinician Jyotsna Cartagena MD Attending Clinician Mario JOHNSTON, Emil Soliman Attending Clinician Wanda Kyle PA-C Attending Clinician Doctor Unassigned, [place] Attending Clinician Unavailable Payers Payer Name Policy Type Policy Number Effective Date Expiration Date S ource Problems Condition Condition Condition Status Onset Resolution Last Treating Co mments Source Name Details Category Date Date Treatment Clinician Date Total knee Total knee Disease Active U nivers replacemen replacemen 01-23 it y of t status t status 00:00: [facility] Knee pain, Knee pain, Disease Active U nivers left left 3-18 ity of 00:00: [facility] Allergies, Adverse Reactions, Alerts Allergy Allergy Status Severity Reaction(s) Onset Inactive Treating Comm ents Source Name Type Date Date Clinician Iodine Propensi Active GI Methodi ty to Intolerance 01-26 st adverse 00:00: Hospita reaction 00 l s to drug Iodine Propensi Active Hives Topical Univers ty to 10-15 ity of adverse 00:00: [place] reaction 00 Medical s to Branch drug Family History Family Member Diagnosis Comments Start Date Stop Date Source Natural brother Heart attack [facility] Social History Social Habit Start Date Stop Date Quantity Comments Source History of tobacco 1980-08-20 Cigarette Smoker [facility] use 00:00:00 Hospital Sexual orientation [facility] ist [facility] Gender identity Alcohol intake 2023-05-15 2023-05-15 Ex-drinker [facility] 00:00:00 00:00:00 (finding) Hospital History of Social 2023-05-15 2023-05-15 [facility] function [facility]:00 Hospital Cigarettes smoked 2023-01-26 2023-01-26 [facility] current (pack per 00:00:00 00:00:00 Hospita l day) - Reported Cigarette 2023-01-26 2023-01-26 [facility] pack-years 00:00:00 00:00:00 Hospital Tobacco use and 2023-01-26 2023-01-26 Smokeless [facility] exposure 00:00:00 00:00:00 tobacco non-user Hospital Sex Assigned At [birth year] [facility] 00:00:00 00:00:00 Hospital Smoking Status Start Date Stop Date Source Smokes tobacco daily 2023-01-26 00:00:00 [facility] Medications Ordered Filled Start Stop Current Ordering Indication Dosage Frequency Signature Comments Components Source Medication Medication Date Date Medication? Clinician (SIG) Name Name amoxicillin Yes amoxicilli Methodi -pot 6-[address] clavulanate 12:04: mg-potassi Hospita (AUGMENTIN) 07 um l 875-125 mg clavulanat per tablet e 125 mg tablet buprenorphi Yes Suboxone 8 Methodi ne-naloxone 6-09 mg-[address] (Suboxone) 12:04: sublingual H ospita 8-2 mg film 07 film l clonAZEPAM Yes clonazepam M ethodi (KlonoPIN) [address] 2 MG tablet 12:04: tablet [facility]osp [facility] 07 l dexAMETHaso Yes TAKE 1 Meth naresh ne [address] (DECADRON) 12:04: MOUTH Hospit a 2 MG tablet 07 EVERY 12 l HOURS Oral every 12 hrs for 5 days diclofenac 0 Yes 1 tablet Met hodi (VOLTAREN) 01-[address] 50 MG EC 12:04: Oral Twice [facility] tablet 07 a day for l 7 days lidocaine 0 Yes lidocaine Met hodi HCL 01-26 HCl 2 % st (XYLOCAINE) 12:04: mucosal [facility] 2 % 07 solution l solution lisinopriL Yes lisinopril M ethodi (PRINIVIL) 01-[address] 10 mg 12:04: tablet Hospita tablet 07 l oxyBUTYnin Yes Oxytrol Meth naresh (Oxytrol) 01-[address] 3.9 mg/24 12:04: 3.9 mg/24 [facility] hr 07 hour l transderma l patch Apply 1 patch every 72 hours by transderma l route at bedtime. traMADoL Yes tramadol Metho di (ULTRAM) [address] mg tablet 12:04: tablet Hospit a 07 l zolpidem 0 Yes zolpidem Metho di (AMBIEN) [address] mg tablet 12:04: tablet Hospit a 07 l amoxicillin 0 Yes amoxicilli Methodi -pot [address] clavulanate 12:04: mg-potassi Hospita (AUGMENTIN) 07 um l 875-125 mg clavulanat per tablet e 125 mg tablet buprenorphi Yes Suboxone 8 Methodi ne-naloxone 01-26 mg-[address] (Suboxone) 12:04: sublingual H ospita 8-2 mg film 07 film l clonAZEPAM Yes clonazepam M ethodi (KlonoPIN) 01-[address] 2 MG tablet 12:04: tablet [facility] 07 l dexAMETHaso 0 Yes TAKE 1 Meth naresh ne -[address] (DECADRON) 12:04: MOUTH Hospit a 2 MG tablet 07 EVERY 12 l HOURS Oral every 12 hrs for 5 days diclofenac 2023-0 Yes 1 tablet Met hodi (VOLTAREN) 01-[address] 50 MG EC 12:04: Oral Twice [facility] tablet 07 a day for l 7 days lidocaine Yes lidocaine Met hodi HCL 01-26 HCl 2 % st (XYLOCAINE) 12:04: mucosal [facility] 2 % 07 solution l solution lisinopriL 0 Yes lisinopril M ethodi (PRINIVIL) 01-[address] 10 mg 12:04: tablet Hospita tablet 07 l oxyBUTYnin Yes Oxytrol Meth naresh (Oxytrol) 01-[address] 3.9 mg/24 12:04: 3.9 mg/24 [facility] hr 07 hour l transderma l patch Apply 1 patch every 72 hours by transderma l route at bedtime. traMADoL Yes tramadol Metho di (ULTRAM) 50 01-[address] mg tablet 12:04: tablet Hospit a 07 l zolpidem Yes zolpidem Metho di (AMBIEN) [address] mg tablet 12:04: tablet Hospit a 07 l ALPRAZolam 0 Yes .5mg Q.5D Take 1 Metho di (XANAX) 0.5 5-[address] MG tablet 00:00: (0.5 mg Hospi ta 00 total) by l mouth 2 (two) times a day as needed. ALPRAZolam 0 Yes .5mg Q.5D Take 1 Metho di (XANAX) 0.5 5-[address] MG tablet 00:00: (0.5 mg Hospi ta 00 total) by l mouth 2 (two) times a day as needed. cyclobenzap Yes Method i rine 5-04 st (FLEXERIL) 00:00: Hospita 10 mg 00 l tablet cyclobenzap 0 Yes Method i rine 5-04 st (FLEXERIL) 00:00: Hospita 10 mg 00 l tablet ARIPiprazol 0 Yes Method i e (ABILIFY) 4-04 st 2 MG tablet 00:00: Hospit a 00 l busPIRone 0 Yes Methodi (BUSPAR) 4-04 st 7.5 MG 00:00: Hospita tablet 00 l ARIPiprazol Yes Method i e (ABILIFY) 4-04 st 2 MG tablet 00:00: Hospit a 00 l busPIRone Yes Methodi (BUSPAR) 4-04 st 7.5 MG 00:00: Hospita tablet 00 l FLUoxetine Yes fluoxetine M ethodi (PROzac) 40 6- [address] MG capsule 00:00: capsule [facility] 00 l gabapentin Yes 1{tbl} 1 tablet. Methodi (NEURONTIN) 6 st 300 mg 00:00: Hospita capsule 00 l simvastatin Yes TAKE 1 Meth naresh (ZOCOR) 20 6- TABLET BY st mg tablet 00:00: MOUTH Hospita 00 EVERY DAY l IN THE EVENING for FLUoxetine Yes fluoxetine M ethodi (PROzac) 40 6- [address] MG capsule 00:00: capsule [facility] 00 l gabapentin Yes 1{tbl} 1 tablet. Methodi (NEURONTIN) 6 st 300 mg 00:00: Hospita capsule 00 l simvastatin Yes TAKE 1 Meth naresh (ZOCOR) 20 6- TABLET BY st mg tablet 00:00: MOUTH Hospita 00 EVERY DAY l IN THE EVENING for 90 BABY 0 Yes Methodi ASPIRIN 6 st ORAL 00:00: Hospita 00 l cholecalcif 2020-0 Yes Method i richard, 6 st vitamin D3, 00:00: Hospit a (Vitamin 00 l D3) 2,000 unit tablet ferrous 2020-0 Yes Methodi sulfate 6 st (iron) 325 00:00: Hospita (65 FE) MG 00 l tablet ibuprofen 2019-0 Yes Methodi (ADVIL) 200 6-01 st MG tablet 00:00: Hospita 00 l BABY 2020-0 Yes Methodi ASPIRIN 6 st ORAL 00:00: Hospita 00 l cholecalcif 2020-0 Yes Method i richard, 6 st vitamin D3, 00:00: Hospit a (Vitamin 00 l D3) 2,000 unit tablet ferrous 2020-0 Yes Methodi sulfate 6 st (iron) 325 00:00: Hospita (65 FE) MG 00 l tablet ibuprofen 2020-0 Yes Methodi (ADVIL) 200 6-01 st MG tablet 00:00: Hospita 00 l FLUoxetine 2016-08 Yes 40mg Take 40 mg [...] hours as needed for Pain (scale 7-10). acetaminoph Yes acetaminop Methodi en-codeine 6-[address] (TYLENOL 00:00: mg-codeine [facility] WITH 00 30 mg l CODEINE #3) tablet 300-30 mg per tablet acetaminoph 2016-0 Yes acetaminop Methodi en-codeine 01-[address] (TYLENOL 00:00: mg-codeine [facility] WITH 00 30 mg l CODEINE #3) tablet 300-30 mg per tablet Vital Signs Vital Name Observation Time Observation Value Comments Source Body height 2023-05-28 18:21:[address] [facility] Body weight 2023-05-28 18:21:[address] [facility] BMI 2023-05-28 18:21:00 25.02 kg/m2 [facility] Systolic blood 2023-05-14 14:52:00 122 mm[Hg] [facility] pressure Diastolic blood 2023-05-14 14:52:00 83 mm[Hg] [facility] pressure Heart rate 2023-05-14 14:52:00 93 /min [facility] Respiratory rate 2023-05-14 14:52:00 16 /min [facility] Oxygen saturation in 2023-05-14 14:52:00 93 /min Arterial blood by Pulse oximetry Body height 2023-01-26 17:05:[address] [facility] Body weight 2023-01-26 17:05:[address] [facility] BMI 2023-01-26 17:05:00 25.82 kg/m2 [facility] Procedures Procedure Date / Time Performing Clinician Source Performed EMG 2023-06-05 20:35:22 Pamela Meng [facility] ospital MRI PELVIS W WO CONTRAST 2023-05-28 19:36:41 [facility] WO 2023-05-28 18:52:03 [facility] HANDS 3 VW BILATERAL 2023-05-14 19:10:[address] [facility] XR HIPS BILATERAL AP 2023-05-14 18:50:00 [facility] LATERAL W AP PELVIS XR FOOT 3 VW BILATERAL 2023-05-14 18:38:00 [facility] XR CERVICAL SPINE 2023-05-14 18:28:[address] [facility] COMPLETE W FLEX EXT HLA-B27 ANTIGEN BY FLOW 2023-05-14 16:48:00 [facility] CYTOMETRY SEDIMENTATION RATE 2023-05-14 16:48:00 [facility] C-REACTIVE PROTEIN 2023-05-14 16:48:00 [facility] VITAMIN D 25 HYDROXY 2023-05-14 16:48:00 [facility] LEVEL URIC ACID LEVEL 2023-05-14 16:48:00 [facility] ospital ACUTE VIRAL HEPATITIS 2023-05-14 16:48:00 [facility] PANEL (HAV, HBV, HCV) COMPREHENSIVE METABOLIC 2023-05-14 16:48:00 [facility] PANEL CBC WITH PLATELET AND 2023-05-14 16:48:00 [facility] DIFFERENTIAL HIV 1/2 ANTIGEN/ANTIBODY, 2023-05-14 16:48:00 [facility] FOURTH GENERATION, WITH REFLEXES FINE NEEDLE ASPIRATION 2023-05-14 16:36:33 [facility] W/IMAGE MO ARTHROCENTESIS 2023-05-14 14:30:[address] [facility] ASPIR&/INJ INTERM JT/BURS W/O US CRYSTAL ANALYSIS 2023-05-14 14:30:[address] [facility] SYNOVIAL FLUID, CELL 2023-05-14 14:30:00 [facility] COUNT MRI LUMBAR SPINE WO 2023-02-09 18:26[facility] TH[facility]ACIC SPINE WO 2023-02-09 17:59:20 Wanda Kyle Janelle [facility] CONTRAST XR PELVIS 1 OR 2 VW 2023-01-26 17:26:17 [facility] 2020-06-24 06:01:00 Doctor Unassigned, [facility] REQUEST/RESPONSE [facility] Plan of Care Planned Activity Planned Date Details Comments Source Future Scheduled 2023-06-07 Pneumococcal Vaccine: [facility] Test 10:47:22 Pediatrics (0 to 5 Years) and At-Risk Patients (6 to 64 Years) (1 - PCV) [code = Pneumococcal Vaccine: Pediatrics (0 to 5 Years) and At-Risk Patients (6 to 64 Years) (1 - PCV)] Future Scheduled 2023-06-07 Screening for [facility] Test 10:47:22 malignant neoplasm of cervix (procedure) [code = 707755297] Future Scheduled 2023-06-07 BREAST CANCER Test 10:47:22 SCREENING [code = BREAST CANCER SCREENING] Future Scheduled 2023-06-07 Screening for Test 10:47:22 malignant neoplasm of colon (procedure) [code = 049175909] Future Scheduled 2023-06-07 Screening for Test 10:47:22 malignant neoplasm of colon (procedure) [code = 774254774] Future Scheduled 2023-06-07 Screening for Test 10:47:22 malignant neoplasm of lung (procedure) [code = 685041847] Future Scheduled 2023-06-07 SHINGLES VACCINES (1 Met [facility] Test 10:47:22 of 2) [code = SHINGLES VACCINES (1 of 2)] Future Scheduled 2023-06-07 RSV VACCINES > 60 YR Met [facility] Test 10:47:22 (1 - 1-dose 60+ series) [code = RSV VACCINES > 60 YR (1 - 1-dose 60+ series)] Future Scheduled 2023-06-07 COVID-19 VACCINE (5 - [facility] Test 10:47:22 season) [code = COVID-19 VACCINE (5 - season)] Future Scheduled 2023-06-07 INFLUENZA VACCINE (#1) [facility] Test 10:47:22 [code = INFLUENZA VACCINE (#1)] Future Scheduled 2023-06-07 Screening for Test 10:47:22 malignant neoplasm of colon (procedure) [code = 525785799] Future Scheduled 2023-06-07 Screening for [facility] Test 10:47:22 malignant neoplasm of colon (procedure) [code = 497178562] Future Scheduled 2023-06-07 Screening for [facility] Test 10:47:22 malignant neoplasm of colon (procedure) [code = 076028690] Future Scheduled 2023-03-07 Screening for [facility] Test 20:40:11 malignant neoplasm of colon (procedure) [code = 453771964] Future Scheduled 2023-03-07 Screening for [facility] Test 20:40:11 malignant neoplasm of colon (procedure) [code = 663519669] Future Scheduled 2023-03-07 Screening for [facility] Test 20:40:11 malignant neoplasm of colon (procedure) [code = 832714948] Future Scheduled 2023-03-07 Pneumococcal Vaccine: [facility] Test 20:40:11 Pediatrics (0 to 5 Years) and At-Risk Patients (6 to 64 Years) (1 - PCV) [code = Pneumococcal Vaccine: Pediatrics (0 to 5 Years) and At-Risk Patients (6 to 64 Years) (1 - PCV)] Future Scheduled 2023-03-07 Hepatitis C screening [facility] Test 20:40:11 (procedure) [code = 565390062] Future Scheduled 2023-03-07 Screening for [facility] Test 20:40:11 malignant neoplasm of cervix (procedure) [code = 723716084] Future Scheduled 2023-03-07 BREAST CANCER [facility] Test 20:40:11 SCREENING [code = BREAST CANCER SCREENING] Future Scheduled 2023-03-07 Screening for [facility] Test 20:40:11 malignant neoplasm of colon (procedure) [code = 505767209] Future Scheduled 2023-03-07 Screening for [facility] Test 20:40:11 malignant neoplasm of colon (procedure) [code = 459152164] Future Scheduled 2023-03-07 Screening for [facility] Test 20:40:11 malignant neoplasm of lung (procedure) [code = 638935307] Future Scheduled 2023-03-07 [facility]INGLES [facility]ACCINES ([facility] Test 20:40:11 of 2) [code = SHINGLES VACCINES (1 of 2)] Future Scheduled 2023-03-07 INFLUENZA VACCINE [facility] Test 20:40:11 [code = INFLUENZA VACCINE] Encounters Start End Encounter Admission Attending Care Care Encounter Source Date/Time Date/Time Type Type Clinicians Facility Department ID 2023-05-02 Outpatient Citlaly, STLMLC STLMLC [id number] Common 16:15:00 Leonel [id number] [facility] 2021-09-14 Outpatient Citlaly, STLMLC STLMLC [id number] Common 12:44:00 Leonel [id number] [facility] 2021-09-14 Outpatient Citlaly STLMLC STLMLC [id number] Common 12:06:22 Le[facility] [id number] [facility] 2021-09-14 Outpatient Citlaly STLMLC STLMLC [id number] Common 12:06:03 Leonel [id number] [facility] 2023-06-05 2023-06-05 Outpatient [facility] [id number] [place] 00:00:00 00:00:00 SOUDABEH 406 Metho di 2023-05-28 2023-05-28 Outpatient [facility] [id number] [place] 00:00:00 00:00:00 SOUDABEH 478 Metho di 2023-05-28 2023-05-28 Outpatient [facility] [id number] [place] 00:00:00 00:00:00 SOUDABEH 481 Metho di 2023-05-22 2023-05-22 Transcribe [facility] 1.2.840.1 [id number] Methodi 00:00:00 00:00:00 Orders Brooke blum 05095.1.[address] 3.430.2.7 Hospit a .3.980431 l .8 2023-05-17 2023-05-17 Transcribe Osiel 1.2.840.1 [id number] Methodi 00:00:00 00:00:00 [address]na [address]95.1.[address] 3.430.2.7 Hospit a .3.211297 l .8 2023-05-14 2023-05-[address] [facility] 1.2.840.1 [id number] Methodi 12:56:00 23:59:00 Encounter Soumauroberandy 96295.1.1 919 s t 3.430.2.7 Hospit a .3.329101 l .8 2023-05-14 2023-05-[address] [facility] 1.2.840.1 [id number] Methodi 12:54:49 12:55:00 Encounter Soudaberandy 63458.1.1 920 s t 3.430.2.7 Hospit a .3.395684 l .8 2023-05-14 2023-05-14 [facility], 1.2.840.1 [id number] Methodi 12:54:17 12:55:00 Encounter Soudaberandy 42317.1.1 924 s t 3.430.2.7 Hospit a .3.383035 l .8 2023-05-14 2023-05-14 [facility] 1.2.840.1 [id number] Methodi 12:45:00 12:53:00 Encounter Emil Martin 89940.1.[address] 3.430.2.7 Hospit a .3.127398 l .8 2023-05-14 2023-05-14 [facility] 1.2.840.1 [id number] Methodi 09:30:00 10:30:00 Visit Pamela 18264.1.[address] 3.430.2.7 Hospit a 3.929911 l .8 2023-05-14 2023-05-14 Outpatient ORIANA, [facility] [id number] [place] 00:00:00 00:00:00 SOUDABEH [address] 2023-05-14 2023-05-14 Outpatient [facility] [id number] [place] 00:00:00 00:00:00 SOUDABEH [address] 2023-05-14 2023-05-14 Outpatient [facility] [id number] [place] 00:00:00 00:00:00 SOUDABEH [address] 2023-05-14 2023-05-14 Outpatient ORIANA, [facility] [id number] [place] 00:00:00 00:00:00 SOUDABEH 924 Metho di 2023-05-14 2023-05-14 Outpatient ORIANA [facility] [id number] [place] 00:00:00 00:00:00 SOUDABEH 917 Metho di 2023-03-14 2023-03-14 [facility] 1.2.840.1 [id number] Methodi 09:50:00 10:59:35 Visit Emil Soliman 92747.1.1 530 s t 3.430.2.7 Hospit a .3.733614 l .8 2023-03-14 2023-03-14 Outpatient [facility] [id number] [place] 00:00:00 00:00:00 EMIL [address] 2023-02-09 2023-02-09 Outpatient [facility] [id number] [place] 00:00:00 00:00:00 186 Method i 2023-02-09 2023-02-09 Outpatient [facility] [id number] [place] 00:00:00 00:00:[address] 2023-01-26 2023-01-26 [facility] 1.2.840.1 [id number] Methodi 13:13:51 23:59:00 Encounter Emil Soliman 04784.1.[address] 3.430.2.7 Hospit a .3.454276 l .8 2023-01-26 2023-01-26 Office Wanda Kyle 1.2.840.1 [id number] Methodi 11:30:00 13:18:51 Visit Janelle 65419.1.[address] 3.430.2.7 Hospit a .3.145508 l .8 2023-01-26 2023-01-26 Office Wanda Kyle 1.2.840.1 [id number] Methodi 11:30:00 13:18:51 Visit Janelle 07569.1.[address] 3.430.2.7 Hospit a .3.768093 l .8 2023-01-26 2023-01-26 [facility], 1.2.840.1 [id number] Methodi 12:57:11 13:12:00 Encounter Emil Soliman 90302.1.[address] 3.430.2.7 Hospit a .3.656159 l .8 2023-01-26 2023-01-26 [facility], 1.2.840.1 [id number] Methodi 12:56:22 12:56:22 Encounter Emil Soliman 36337.1.[address] 3.430.2.7 Hospit a .3.806149 l .8 2023-01-26 2023-01-26 [facility], 1.2.840.1 [id number] Methodi 12:55:21 12:55:21 Encounter Emil Soliman 64122.1.[address] 3.430.2.7 Hospit a .3.750065 l .8 2023-01-26 2023-01-26 [facility] 1.2.840.1 [id number] Methodi 00:00:00 00:00:00 Only Emil ElizabethOsito 10762.1.1 396 s t 3.430.2.7 Hospit a .3.164381 l .8 2023-01-26 2023-01-26 [facility], 1.2.840.1 [id number] [place] 00:00:00 00:00:00 Encounter EMIL 40612.1.[address] .3.854205 .8 2023-01-26 2023-01-26 [facility], 1.2.840.1 [id number] Methodi 00:00:00 00:00:00 Only Emil ElizabethOsito 33399.1.1 396 s t 3.430.2.7 Hospit a .3.147521 l .8 2023-01-26 2023-01-26 [facility] [id number] [place] 00:00:00 00:00:[address] 2023-01-26 2023-01-26 [facility], 1.2.840.1 [id number] [place] 00:00:00 00:00:00 Encounter EMIL 58561.1.[address] .3.191702 .8 2023-01-26 2023-01-26 [facility], 1.2.840.1 [id number] [place] 00:00:00 00:00:00 Encounter EMIL 14181.1.1 [address] .3.120837 .8 2023-01-26 2023-01-26 [facility], 1.2.840.1 [id number] [place] 00:00:00 00:00:00 Encounter EMIL 36330.1.[address] .3.002093 .8 2023-01-04 2023-01-04 Travel 1.2.840.1 1.2.561.537 [id number] Methodi 00:00:00 00:00:[address] 3.430.2.7 0.2.7.3.698 Ho spita .3.937622 084.8 l .8 2023-01-04 2023-01-04 Travel 1.2.840.1 1.2.037.684 [id number] Methodi 00:00:00 00:00:[address] 3.430.2.7 0.2.7.3.698 Ho spita .3.875400 084.8 l .8 2020-06-24 2020-06-24 Orders Doctor RUCKER 1.2.840.114 [id number] Univers 00:00:00 00:00:00 Only Unassigned, SUHA 350.1.13.10 ity of [facility] 4.2.7.2.686 Steven as [id number] [place] [address] Branch 2020-06-24 2020-06-24 Orders Doctor ALKA 1.2.840.114 [id number] 00:00:00 00:00:00 Only Unassigned, SUHA 350.1.13.10 [facility] [id number] [id number] Results Test Description Test Time Test Comments Results Result Comments Source Comprehensive metabolic panel 2023-05-18 04:26:00 Test Item Value Reference Range Interpretation Comme nts Glucose (test code = 90 mg/dL 65-99 Fastin g reference 2345-7) interval BUN (test code = 3094-0) 13 mg/dL 7-25 Creatinine (test code = 0.86 mg/dL 0.50-1.05 2160-0) eGFR (test code = 77 See_Comment [Automate d message] 25078-4) The system [employer] generated this result transmitted ref erence range: > OR = 6 0 mL/min/1.73m2. The reference range was not used to interpr et this result as normal/abnormal . BUN/creatinine ratio SEE NOTE: See_Comment Not Re ported: BUN and (test code = 3097-3) Creatin ine are within reference range . [Automated mess age] The system which ge nerated this result tra nsmitted reference range : 6 - 22 (calc). The ref erence range was not u sed to interpret this result as normal/abnor mal. Sodium (test code = 137 mmol/L 296-064 3019-2) Potassium (test code = 3.8 mmol/L 3.5-5.3 2823-3) Chloride (test code = 99 mmol/L 98-110 5-0) CO2 (test code = 2027-) 28 mmol/L 20-32 Calcium (test code = 10.2 mg/dL 8.6-10.4 97555-8) Protein (test code = 7.2 g/dL 6.1-8.1 2885-2) Albumin (test code = 4.5 g/dL 3.6-5.1 1751-7) Globulin, total (test 2.7 See_Comment [Auto mated message] code = 09409-7) The system w [facility] generated this result transmitted ref erence range: 1.9 - 3. 7 g/dL (calc). The ref erence range was not u sed to interpret this result as normal/abnor mal. Albumin/globulin ratio 1.7 See_Comment [Aut omated message] (test code = 1759-0) The s tem which generated this result transmitted ref erence range: 1.0 - 2. 5 (calc). The ref erence range was not u sed to interpret this result as normal/abnor mal. Total bilirubin (test 0.5 mg/dL 0.2-1.2 code = 1975-2) Alkaline phosphatase 77 U/L 37-153 (test code = 6768-6) AST (test code = 1920-8) 23 U/L 10-35 ALT (test code = 1742-6) 22 U/L 6-29 TARIQ (test code = TARIQ) FASTING:YESLTC ONLY: NURSE COLLECTED - NO SPECIMEN PROVIDED. FASTING: YES RAC (test code = RAC) Performing Organization Information: Site ID: [facility] Name: [facility] Address: [address] [place] [address] Director: Amy Mock [facility] [id number] 04:26:00 Test Item Value Reference Range Interpretation Comments Uric acid 4.1 mg/dL 2.5-7.0 Therapeutic tar get (test code = for gout patien ts: 3084-1) <6.0 mg/dL TARIQ (test FASTING:YESLTC ONLY: code = TARIQ) NURSE COLLECTED - NO SPECIMEN PROVIDED. FASTING: YES RAC (test Performing code = RAC) Organization Information: Site ID: [facility] Name: [facility] Address: [address] [place] [address] Director: [facility]-reactive [id number] 04:26:00 Test Item Value Reference Range Interpretation Comments CRP (test code = 5.3 mg/L <=8.0 1987-12) TARIQ (test code = FASTING:YESLTC ONLY: NURSE TARIQ) COLLECTED - NO SPECIMEN PROVIDED. FASTING: YES RAC (test code = Performing Organization RAC) Information: Site ID: [facility] Name: [facility] Lab Address: [address] [place] [address] Director: [facility] with platelet and [id number] 04:26:00 Test Item Value Reference Range Interpretation Comments WBC (test code = 6.9 See_Comment [Automated 6690-2) message] The system which generated this result transmitted reference range : 3.8 - 10.8 Thousand/uL. Th e reference range was not used to interpret this result as normal/abnormal . RBC (test code = 4.72 See_Comment [Automated 789-8) message] The system which generated this result transmitted reference range : 3.80 - 5.10 Million/uL. The reference range was not used to interpret this result as normal/abnormal . HGB (test code = 13.8 g/dL 11.7-15.5 718-7) HCT (test code = 42.0 % 35.0-45.0 4544-3) MCV (test code = 89.0 fL 80.0-100.0 787-2) MCH (test code = 29.2 pg 27.0-33.0 785-6) MCHC (test code = 32.9 g/dL 32.0-36.0 786-4) RDW (test code = 12.9 % 11.0-15.0 788-0) Platelet count 208 See_Comment [Automated (test code = message] The 777-3) system which generated this result transmitted reference range : 140 - 400 Thousand/uL. Th e reference range was not used to interpret this result as normal/abnormal . MPV (test code = 10.4 fL 7.5-12.5 776-5) Neutrophils, 3333 See_Comment [Automated absolute (test message] The code = 751-8) system which generated this result transmitted reference range : 1,500 - 7,800 cells/uL. The reference range was not used to interpret this result as normal/abnormal . Lymphocytes, 2615 See_Comment [Automated absolute (test message] The code = 731-0) system which generated this result transmitted reference range : 850 - 3,900 cells/uL. The reference range was not used to interpret this result as normal/abnormal . Monocytes, 559 See_Comment [Automated absolute (test message] The code = 742-7) system which generated this result transmitted reference range : 200 - 950 cells/uL. The reference range was not used to interpret this result as normal/abnormal . Eosinophils, 331 See_Comment [Automated absolute (test message] The code = 711-2) system which generated this result transmitted reference range : 15 - 500 cells/uL. The reference range was not used to interpret this result as normal/abnormal . Basophils, 62 See_Comment [Automated absolute (test message] The code = 704-7) system which generated this result transmitted reference range : 0 - 200 cells/u L. The reference range was not used to interpr et this result as normal/abnormal . Neutrophils (test 48.3 % code = 770-8) Lymphocytes (test 37.9 % code = 736-9) Monocytes (test 8.1 % code = 5905-5) Eosinophils (test 4.8 % code = 713-8) Basophils + RC 0.9 % (test code = 706-2) TARIQ (test code = FASTING:YESLTC TARIQ) ONLY: NURSE COLLECTED - NO SPECIMEN PROVIDED. FASTING: YES RAC (test code = Performing RAC) Organization Information: Site ID: A Name: [facility] Address: [address] [place] [phone] Director: [facility] [id number] 04:26:00 Test Item Value Reference Range Interpretation Comments Sedimentation rate 14 mm/h See_Comment [Automat ed (test code = 4537-7) message ] The system which generated this result transmitted reference range : < OR = 30. The reference range was not used to interpret this result as normal/abnormal . TARIQ (test code = FASTING:YESLTC TARIQ) ONLY: NURSE COLLECTED - NO SPECIMEN PROVIDED. FASTING: YES RAC (test code = Performing RAC) Organization Information: Site ID: RGA [facility] Address: [address] [place], [place] [id number] Director[facility] 25 hydroxy [id number] 04:26:00 Test Item Value Reference Range Interpretation Comments Vitamin D, 25-hydroxy 25 ng/mL 30-100 L Vitami n D Status (test code = 1988-10) 25-OH V itamin D: Deficiency: <20 ng/mLInsufficie n cy: 20 - 29 ng/mLOptimal: > or = 30 ng/mL For 25-OH Vitamin D testing on patients on D2-supplementat i on and patients for whom quantitation of D2 and D3 fractions is required, the QuestAssureD(TM ) 25-OH VIT D, (D2,D3), LC/MS/MS is recommended: order code 9288 8 (patients >2yrs). See Not e 1 Note 1 For additional information, please refer to http://[employer] Marble Materialso n .Beepl/faq/FAQ19 9 (This link is being provided for informational/e d ucational purposes only.) TARIQ (test code = TARIQ) FASTING:YESLTC ONLY: NURSE COLLECTED - NO SPECIMEN PROVIDED. FASTING: YES RAC (test code = RAC) Performing Organization Information: Site ID: RGA Name: [facility] Address: [address] [place] [phone] Director: Amy Mayen Lab Interpretation Abnormal (test code = 47203-1) [facility] viral hepatitis panel (HAV, HBV, HCV)2023-05-18 04:26:00 Test Item Value Reference Range Interpretation Comments Hepatitis A IgM NON-REACTIVE NON-REACTIVE For additio nal (test code = information, 97110-7) please refer to http://[employer] Mar[employer]so [employer].AeroFSs .Xceleron (Chapter 11) m/faq/EHN292 (T his link is being provided for informational/e cathy ational purpose s only.) Hepatitis B NON-REACTIVE NON-REACTIVE For additional surface Ag (test information , code = 5196-1) please refer to http://[employer].AeroFSs .co m/faq/WFM189 (T his link is being provided for informational/e cathy ational purpose s only.) Hepatitis B core NON-REACTIVE NON-REACTIVE For additi onal IgM (test code = information , 38246-0) please refer to http://[employer].AeroFSs .co m/faq/UBT179 (T his link is being provided for informational/e cathy ational purpose s only.) Hepatitis C Ab NON-REACTIVE NON-REACTIVE HCV antibody was (test code = non-reactive. 22526-7) There is no laboratory evidence of HCV infection. In m ost cases, no furth er action is required. However,if rece nt HCV exposure is suspected, a te st for HCV RNA(veronica t code 35379) is suggested. For additional information ple ase refer tohttp://educat ion .FreedomPay. Balandras/faq/FYY15t6 (Th is link is bein g provided for informational/e cathy ational purpose s only.) TARIQ (test code = FASTING:YESLTC TARIQ) ONLY: NURSE COLLECTED - NO SPECIMEN PROVIDED. FASTING: YES RAC (test code = Performing RAC) Organization Information: Site ID: RGA Name: [facility] Address: [address] [place] [phone] Director: Amy Mayen HLA-B27 antigen by flow [id number] 04:26:00 Test Item Value Reference Range Interpretation Comments HLA B27 (test code NEGATIVE NEGATIVE = 35721-4) TARIQ (test code = FASTING:YESLTC ONLY: NURSE TARIQ) COLLECTED - NO SPECIMEN PROVIDED. FASTING: YES RAC (test code = Performing Organization RAC) Information: Site ID: IG [facility] Address: [address] [place] [address] Director: Dr. Arthur Hall HIV 1/2 antigen/antibody, fourth generation, with reflexes 2023-05-18 04:26:00 Test Item Value Reference Range Interpretation Comments HIV NON-REACTIVE NON-REACTIVE HIV-1 antigen a nd antigen/ant HIV-1/HIV-2 ant ibodies ibody 4th were notdetecte d. There gen (test is no laborator y evidence code = of HIVinfection . PLEASE 41512-2) NOTE: This info rmation has been disclo sed toyou from records wh ose confidentiality may beprotected by state law. If your state r equires suchprotection, then the state law prohi bits you frommaking any further disclosure of t he informationwith out the specific writte n consent of the personto whom it pertains, or as otherwise permitted by [place] general authori zation for the release of medical orother informa tion is NOT sufficient for this purpose. For ad ditional information ple ase refer tohttp://educat ion.Certus/ faq/BNO869 (This link is b eing provided for informational/e ducational purposes only.) The performance of this assay has not been clinicallyvalid ated in patients less t hardy 2 years old. TARIQ (test FASTING:YESLTC code = TARIQ) ONLY: NURSE COLLECTED - NO SPECIMEN PROVIDED. FASTING: YES RAC (test Performing code = RAC) Organization Information: Site ID: [place] Name: [facility] Address: [address] [place] [phone] Director: [facility], cell [id number] 20:22:00 Test Item Value Reference Range Interpretation Comments Site (test code = NOT GIVEN 06471-3) Color, fluid (test YELLOW STRAW/YELLOW code = 13590-5) Appearance (test HAZY CLEAR/HAZY code = 57837-7) Nucleated cells, 1980 See_Comment H [Automated fluid (test code = message] The 814-4) system which generated this result transmitted reference range : <150 cells/uL. The reference range was not used to interpr et this result as normal/abnormal . Neutrophils, percent 79 % 0-24 H (test code = 25913-1) Lymphocytes, percent 0 % 0-74 (test code = 91059-9) Monocytes, percent 21 % 0-69 (test code = 78412-3) Eosinophils, percent 0 % 0-2 (test code = 96603-5) Basophils, percent 0 % 0-0 (test code = 79878-3) Synoviocyte percent 0 % 0-15 (test code = 89392-8) RAC (test code = Performing RAC) Organization Information: Site ID: RGA [facility]: [facility] Address: [address] [place] [phone] Director: [facility] Nish Faheem Lab Interpretation Abnormal (test code = 80351-7) Crystal [id number] 20:22:00 Test Item Value Reference Range Interpretation Comments Site (test code = NOT GIVEN 22676-0) Crystals, fluid NONE SEEN /HPF None seen (test code = 5781-0) RAC (test code = Performing Organization RAC) Information: Site ID: A Name: [facility] Address: [address] [place] [phone] Director: [facility]
[2023-06-08] MEDS ORDERED: LIDOCAINE 1% MPF 5 ML VIAL ONE (13:31)
--- NOTE | 2023-06-08 13:32 | ER ---
Nurse's Notes [facility] Name: Kelly Reddy Age: 62 yrs Sex: Female : 1960 Arrival Date: 06/08/2023 Time: 12:38 Bed 18 Private MD: David Ortega E Diagnosis: Olecranon bursitis, left elbow Presentation: 06/08 12:58 Chief complaint: Patient states: "My left elbow started swelling for the past 4 months. mb9 It's been drained multiple times before". Coronavirus screen: Vaccine status: Patient reports receiving the 2nd dose of the covid vaccine. Ebola Screen: No symptoms or risks identified at this time. Initial Sepsis Screen: Does the patient meet any 2 criteria? No. Patient's initial sepsis screen is negative. Does the patient have a suspected source of infection? No. Patient's initial sepsis screen is negative. Risk Assessment: Do you want to hurt yourself or someone else? Patient reports no desire to harm self or others. Onset of symptoms was 2022. 12:58 Method Of Arrival: Wheelchair mb9 12:58 Acuity: JESSICA 4 mb9 Triage Assessment: 12:59 General: Appears in no apparent distress. Behavior is calm, cooperative. Pain: Denies mb9 pain. EENT: No signs and/or symptoms were reported regarding the EENT system. Neuro: Torres Agitation-Sedation Scale (RASS): 0 - Alert and Calm Level of Consciousness is awake, alert, obeys commands, Oriented to person, place, time, situation, Appropriate for age. Cardiovascular: Patient's skin is warm and dry. Respiratory: Airway is patent Respiratory effort is even, unlabored, Respiratory pattern is regular, symmetrical. GI: No signs and/or symptoms were reported involving the gastrointestinal system. Derm: Skin is pink, warm \\T\\ dry. Musculoskeletal: Swelling present in left elbow. Historical: - Allergies: 12:59 Iodine; mb9 - PMHx: 12:59 Anemia; Bladder problem; chronic back pain; Hypertension; spinal stenosis; mb9 - PSHx: 12:59 tubal ligation; mb9 - Immunization history:: Adult Immunizations up to date. - Social history:: Smoking status: Patient denies any tobacco usage or history of. Screenin:45 [facility] ED Fall Risk Assessment (Adult) History of falling in the last 3 months, mb9 including since admission No falls in past 3 months (0 pts) Confusion or Disorientation No (0 pts) Intoxicated or Sedated No (0 pts) Impaired Gait No (0 pts) Mobility Assist Device Used No (0 pt) Altered Elimination No (0 pt) Score/Fall Risk Level 0 - 2 = Low Risk Oriented to surroundings, Maintained a safe environment, Educated pt \\T\\ family on fall prevention, incl call for assistance when getting out of bed. Abuse screen: Denies threats or abuse. Nutritional screening: No deficits noted. Tuberculosis screening: No symptoms or risk factors identified. Assessment: 13:45 Reassessment: No changes from previously documented assessment. Patient and/or family mb9 updated on plan of care and expected duration. Pain level reassessed. Patient is alert, oriented x 3, equal unlabored respirations, skin warm/dry/pink. Vital Signs: 12:58 BP 100 / 72; Pulse 91; Resp 18; Temp 98; Pulse Ox 96% on R/A; Weight 71.21 kg; Height 5 mb9 ft. 6 in. ; 13:40 BP 95 / 76; Pulse 74; Resp 16; Pulse Ox 98% on R/A; me1 12:58 Body Mass Index 25.34 (71.21 kg, 167.64 cm) mb9 ED Course: 12:43 Patient arrived in ED. mr 12:43 David Ortega MD is Private Physician. mr 12:44 Madalyn Roldan FNP is [facility]. jh7 12:44 Efraín Morrison MD is Attending Physician. [facility] 12:58 Gwendolyn Gonzalez, RUTH is Primary Nurse. kd3 12:59 Triage completed. mb9 12:59 Arm band placed on. mb9 13:00 Bed in low position. Call light in reach. Side rails up X 1. Client placed on mb9 continuous cardiac and pulse oximetry monitoring. NIBP monitoring applied. players club representative on. 13:31 aDvid Ortega MD is Referral Physician. [facility] 13:45 No provider procedures requiring assistance completed. Patient did not have IV access mb9 during this emergency room visit. Administered Medications: 13:24 Drug: Lidocaine Infiltration (1 %) 5 ml 5 ml Infiltration once; to bedside Volume: 5 mb9 ml; Route: Infiltration; Outcome: 13:32 Discharge ordered by MD. jh7 13:45 Discharged to home ambulatory, with family, king 13:45 Condition: stable 13:45 Discharge instructions given to patient, family, Instructed on discharge instructions, follow up and referral plans. Demonstrated understanding of instructions, follow-up care, 13:45 Patient left the ED. [email or web address] Signatures: Makenna Khan, Reg Reg mr CarlosGwendolyn, RN RN kd3 Madalyn Roldan, PLAYERS CL[employer] REPRESENTATIVE PLAYERS CL[employer] REPRESENTATIVE 7 Makenna Ambriz RN RN mb9 Vicki Javier RN RN me1
--- NOTE | 2023-06-08 13:33 | EDPHYS ---
Physician Documentation [facility] Name: Kelly Reddy Age: 62 yrs Sex: Female : 1960 Arrival Date: 06/08/2023 Time: 12:38 Bed 18 Private MD: David Ortega E ED Physician Efraín Morrison HPI: 06/08 12:58 This 62 yrs old Female presents to ER via Wheelchair with complaints of Elbow swelling. jh7 12:58 Associated signs and symptoms: The patient has no apparent associated signs or [facility] symptoms. Patient complains of left elbow swelling due to olecranon bursitis. She states that she would like the area drained and that she has had it done multiple times before. No fever, redness, or tenderness to palpation.. Historical: - Allergies: 12:59 Iodine; mb9 - PMHx: 12:59 Anemia; Bladder problem; chronic back pain; Hypertension; spinal stenosis; mb9 - PSHx: 12:59 tubal ligation; mb9 - Immunization history:: Adult Immunizations up to date. - Social history:: Smoking status: Patient denies any tobacco usage or history of. ROS: 12:58 Constitutional: Negative for fever, chills, and weight loss, Cardiovascular: Negative jh7 for chest pain, palpitations, and edema, Respiratory: Negative for shortness of breath, cough, wheezing, and pleuritic chest pain, Back: Negative for injury and pain, Skin: Negative for injury, rash, and discoloration, Neuro: Negative for headache, weakness, numbness, tingling, and seizure, 12:58 MS/extremity: Positive for pain, swelling, Negative for injury or acute deformity, decreased range of motion, erythema, 12:58 All other systems are negative, Exam: 12:58 Constitutional: This is a well developed, well nourished patient who is awake, alert, jh7 and in no acute distress. Cardiovascular: Regular rate and rhythm with a normal S1 and S2. No gallops, murmurs, or rubs. Normal PMI, no JVD. No pulse deficits. Respiratory: Lungs have equal breath sounds bilaterally, clear to auscultation and percussion. No rales, rhonchi or wheezes noted. No increased work of breathing, no retractions or nasal flaring. Skin: Warm, dry with normal turgor. Normal color with no rashes, no lesions, and no evidence of cellulitis. Neuro: Awake and alert, GCS 15, oriented to person, place, time, and situation. Motor strength 5/5 in all extremities. Sensory grossly intact. Normal gait. 12:58 Musculoskeletal/extremity: Extremities: noted in the L elbow: swelling, Golf ball sized fluid-filled area noted over the left elbow consistent with olecranon bursitis. There is no surrounding erythema noted., ROM: full active range of motion, Circulation is intact in all extremities. Sensation intact. Vital Signs: 12:58 BP 100 / 72; Pulse 91; Resp 18; Temp 98; Pulse Ox 96% on R/A; Weight 71.21 kg; Height 5 mb9 ft. 6 in. ; 13:40 BP 95 / 76; Pulse 74; Resp 16; Pulse Ox 98% on R/A; me1 12:58 Body Mass Index 25.34 (71.21 kg, 167.64 cm) mb9 Procedures: 13:20 Performed Aspiration of olecranon bursitis. Lidocaine 1% 5 mils was used for local [facility] sedation. A total of 16 mils of serosanguineous fluid was drained from the left elbow. The patient tolerated the procedure well and an Mihir wrap was applied afterwards.. MDM: 12:44 Patient medically screened. [facility] 13:32 Differential diagnosis: Olecranon bursitis. Data reviewed: vital signs, nurses notes. I [facility] considered the following discharge prescriptions or medication management in the emergency department Medications were administered in the Emergency Department. See MAR. Care significantly affected by the following chronic conditions: Hypertension. Counseling: I had a detailed discussion with the patient and/or guardian regarding the historical points, exam findings, and any diagnostic results supporting the discharge/admit diagnosis, to return to the emergency department if symptoms worsen or persist or if there are any questions or concerns that arise at home. Response to treatment: the patient's symptoms have resolved after treatment, swelling decreased. 06/08 12:52 Order name: Misc. Order: 10 cc syringe, lido, 18 g needle, chlorhexidine scrub; [facility] Complete Time: 13:20 06/08 13:32 Order name: Mihir wrap-joint; Complete Time: 13:39 [facility] Administered Medications: 13:24 Drug: Lidocaine Infiltration (1 %) 5 ml 5 ml Infiltration once; to bedside Volume: 5 mb9 ml; Route: Infiltration; Disposition: 13:59 Co-signature as Attending Physician, Efraín Morrison MD I reviewed the patient's care rt provided by the Advanced Practice Provider and agree with the diagnosis and treatment plan. Disposition Summary: 06/08/23 13:32 Discharge Ordered Notes: Location: Home [facility] Problem: new [facility] Symptoms: are unchanged [facility] Condition: Stable [facility] Diagnosis - Olecranon bursitis, left elbow [facility] Followup: [facility] - With: David Ortega MD - When: 2 - 3 days - Reason: Recheck today's complaints Discharge Instructions: - Discharge Summary Sheet [facility] - Elbow Bursitis [facility] Forms: - Medication Reconciliation Form [facility] - Thank You Letter [facility] - Patient Portal Instructions [facility] - Leadership Thank You Letter [facility] Signatures: Madalyn Roldan FNP [employer] [facility] Makenna Ambriz RN RN mb9 Efraín Morrison MD MD rt
[2023-06-08 13:49] VITALS: TEMP 98
[2023-06-08 13:50] VITALS: BP 95/76; O2SAT 98
== END 2023-06-08 13:45 | disposition home or self-care (01) ==
LOC: ER 12:38
PROC: 0R9M3ZX Drainage of Left Elbow Joint, Percutaneous Approach, Diagnostic (ICD-10-PCS; principal; 2023-06-08)
DX: M70.22 Olecranon bursitis, left elbow (principal); Z91.048 Other nonmedicinal substance allergy status
CPT/HCPCS: 99284; 10021; J2001

== ENCOUNTER 2023-06-12 18:24 | Emergency (ER) | payer OTHER ==
--- OUTSIDE RECORDS SUMMARY | 2023-06-12 18:29 | XMS REPORT | Continuity of Care Document ---
:1960 Author Organization [facility] t Address [address] [place] [address] [address] [place] [address] Care Team Providers Name Role Phone Brooke Dubose Primary Care Physician Leonel Boucher Attending Clinician Unavailable Pamela Meng MD Attending Clinician Brooke Dubose Attending Clinician Jyotsna Cartagena MD Attending Clinician Xavi Martin MD Attending Clinician Wanda Kyle PA-C Attending Clinician Doctor Unassigned, [place] Attending Clinician Unavailable Payers Payer Name Policy [...] left left 3-18 ity of 00:00: [place] [facility] Allergies, Adverse Reactions, Alerts [...] Stop Date Source Natural brother Heart attack [facility] Social History Social Habit Start Date Stop Date Quantity Comments Source History of tobacco 1980-08-20 Cigarette Smoker [facility] use [facility] Gender identity [facility] Alcohol intake 2023-05-15 2023-05-15 Ex-drinker [facility] 00:00:00 00:00:00 (finding) Hospital History of Social 2023-05-15 2023-05-15 [facility] function 00:00:00 00:00:00 Hospital Tobacco use and 2023-01-26 2023-01-26 Smokeless [facility] exposure 00:00:00 00:00:00 tobacco non-user Hospital Cigarettes smoked 2023-01-26 2023-01-26 [facility] current (pack per 00:00:00 00:00:00 Hospita l day) - Reported Cigarette 2023-01-26 2023-01-26 [facility] pack-years 00:00:00 00:00:00 Hospital Sex Assigned At [birth year] [facility] 00:00:00 00:00:00 Hospital Smoking Status Start Date Stop Date Source Smokes tobacco daily 2023-01-26 00:00:00 [facility] Medications Ordered Filled Start Stop Current Ordering Indication Dosage Frequency Signature Comments Components Source Medication Medication Date Date Medication? Clinician (SIG) Name Name amoxicillin Yes amoxicilli [facility] -pot 609 n 875 [...] 12:04: tablet [facility] 07 l dexAMETHaso 2022-0 Yes TAKE 1 Meth naresh ne 6-[address] (DECADRON) 12:04: MOUTH Hospit a 2 MG tablet 07 EVERY 12 l HOURS Oral every 12 hrs for 5 days diclofenac 2022-0 Yes 1 tablet Met [facility] (VOLTAREN) 01-[address] 50 MG EC 12:04: Oral Twice [facility] tablet 07 a day for l 7 days lidocaine 2022-0 Yes lidocaine [facility] HCL 01-26 HCl 2 % st (XYLOCAINE) 12:04: mucosal [facility] 2 % 07 solution l solution lisinopriL 0 Yes lisinopril M ethodi (PRINIVIL) 6-[address] 10 mg 12:04: tablet Hospita tablet 07 l oxyBUTYnin Yes Oxytrol Meth naresh (Oxytrol) 01-[address] 3.9 mg/24 12:04: 3.9 mg/24 [facility] hr 07 hour l transderma l patch Apply 1 patch every 72 hours by transderma l route at bedtime. traMADoL Yes tramadol Metho di (ULTRAM) 50 6-[address] mg tablet 12:04: tablet Hospit a 07 l zolpidem 2022-0 Yes zolpidem Metho di (AMBIEN) 10 6-[address] mg tablet 12:04: tablet Hospit a 07 l amoxicillin 2022-0 Yes amoxicilli [facility] -pot 6-[address] clavulanate 12:04: mg-potassi Hospita (AUGMENTIN) 07 um l 875-125 mg clavulanat per tablet e 125 mg tablet buprenorphi 0 Yes Suboxone 8 [facility] ne-naloxone 6-09 mg-[address] (Suboxone) 12:04: sublingual H ospita 8-2 mg film 07 film l clonAZEPAM 0 Yes clonazepam M ethodi (KlonoPIN) 6-[address] 2 MG tablet 12:04: tablet [facility] 07 l dexAMETHaso 2022-0 Yes TAKE 1 Meth naresh ne 6-[address] (DECADRON) 12:04: MOUTH Hospit a 2 MG tablet 07 EVERY 12 l HOURS Oral every 12 hrs for 5 days diclofenac 2022-0 Yes 1 tablet Met [facility]odi (VOLTAREN) 6-[address] 50 MG EC 12:04: Oral Twice [facility] tablet 07 a day for l 7 days lidocaine 2022-0 Yes lidocaine Met [facility] HCL 6-09 HCl 2 % st (XYLOCAINE) 12:04: mucosal [facility] 2 % 07 solution l solution lisinopriL 0 Yes lisinopril M ethodi (PRINIVIL) 6- [address] 10 mg 12:04: tablet Hospita tablet 07 l oxyBUTYnin 2022-0 Yes Oxytrol Meth naresh (Oxytrol) 01-[address] 3.9 mg/24 12:04: 3.9 mg/24 [facility] hr 07 hour l transderma l patch Apply 1 patch every 72 hours by transderma l route at bedtime. traMADoL Yes tramadol Metho di (ULTRAM) 50 6-[address] mg tablet 12:04: tablet Hospit a 07 l zolpidem 2022-0 Yes zolpidem Metho di (AMBIEN) 10 6-[address] mg tablet 12:04: tablet Hospit a 07 l amoxicillin 2022-0 Yes amoxicilli [facility] -pot 6-[address] clavulanate 12:04: mg-potassi Hospita (AUGMENTIN) 07 um l 875-125 mg clavulanat per tablet e 125 mg tablet buprenorphi 2022-0 Yes Suboxone 8 Methodi ne-naloxone 6-09 mg-[address] (Suboxone) 12:04: sublingual H ospita 8-2 mg film 07 film l clonAZEPAM 2022-0 Yes clonazepam M ethodi (KlonoPIN) 6-[address] 2 MG tablet 12:04: tablet [facility] 07 l dexAMETHaso 2022-0 Yes TAKE 1 Meth naresh ne -[address] (DECADRON) 12:04: MOUTH Hospit a 2 MG tablet 07 EVERY 12 l HOURS Oral every 12 hrs for 5 days diclofenac 2022-0 Yes 1 tablet Met [facility]odi (VOLTAREN) -[address] 50 MG EC 12:04: Oral Twice [facility] tablet 07 a day for l 7 days lidocaine 2023-0 Yes lidocaine Met [facility]odi HCL 6-09 HCl 2 % st (XYLOCAINE) 12:04: mucosal [facility] 2 % 07 solution l solution lisinopriL 0 Yes lisinopril M ethodi (PRINIVIL) 01-[address] 10 mg 12:04: tablet Hospita tablet 07 l oxyBUTYnin 0 Yes Oxytrol Meth naresh (Oxytrol) 01-[address] 3.9 mg/24 12:04: 3.9 mg/24 [facility] hr 07 hour l transderma l patch Apply 1 patch every 72 hours by transderma l route at bedtime. traMADoL Yes tramadol Metho di (ULTRAM) 50 01-[address] mg tablet 12:04: tablet Hospit a 07 l zolpidem 0 Yes zolpidem Metho di (AMBIEN) [address] mg tablet 12:04: tablet Hospit a 07 l ALPRAZolam 0 Yes .5mg Q.5D Take 1 Metho di (XANAX) 0.5 5-[address] MG tablet 00:00: (0.5 mg Hospi ta 00 total) by l mouth 2 (two) times a day as needed. ALPRAZolam 2022-0 Yes .5mg Q.5D Take 1 Metho di (XANAX) 0.5 5-[address] MG tablet 00:00: (0.5 mg Hospi ta 00 total) by l mouth 2 (two) times a day as needed. ALPRAZolam 2022-0 Yes .5mg Q.5D Take 1 Metho di (XANAX) 0.5 5-[address] MG tablet 00:00: (0.5 mg Hospi ta 00 total) by l mouth 2 (two) times a day as needed. cyclobenzap 0 Yes Method i rine 5-04 st (FLEXERIL) 00:00: Hospita 10 mg 00 l tablet cyclobenzap 2022-0 Yes Method i rine 5-04 st (FLEXERIL) 00:00: Hospita 10 mg 00 l tablet cyclobenzap 2022-0 Yes Method i rine 5-04 st (FLEXERIL) 00:00: Hospita 10 mg 00 l tablet ARIPiprazol 2023-0 Yes Method i e (ABILIFY) 4-04 st 2 MG tablet 00:00: Hospit a 00 l busPIRone 0 Yes Method[facility] (BUSPAR) 4-04 st 7.5 MG 00:00: Hospita tablet 00 l ARIPiprazol 0 Yes Method i e (ABILIFY) 4-04 st 2 MG tablet 00:00: Hospit a 00 l busPIRone 0 Yes [facility] (BUSPAR) 4-04 st 7.5 MG 00:00: Hospita tablet 00 l ARIPiprazol 0 Yes Method i e (ABILIFY) 4-04 st 2 MG tablet 00:00: Hospit a 00 l busPIRone 0 Yes [facility] (BUSPAR) 4-04 st 7.5 MG 00:00: Hospita tablet 00 l FLUoxetine Yes fluoxetine M ethodi (PROzac) 40 6- [address] MG capsule 00:00: capsule [facility] 00 l gabapentin 0 Yes 1{tbl} 1 tablet. Method[facility] (NEURONTIN) 6- st 300 mg 00:00: Hospita capsule 00 l simvastatin 0 Yes TAKE 1 Meth naresh (ZOCOR) [address] mg tablet 00:00: MOUTH Hospita 00 EVERY DAY l IN THE EVENING for FLUoxetine Yes fluoxetine M ethodi (PROzac) 40 6-[address] MG capsule 00:00: capsule [facility] 00 l gabapentin 0 Yes 1{tbl} 1 tablet. [facility] (NEURONTIN) 6-01 st 300 mg 00:00: Hospita capsule 00 l simvastatin 0 Yes TAKE 1 Meth naresh (ZOCOR) 20 6-[address] mg tablet 00:00: MOUTH Hospita 00 EVERY DAY l IN THE EVENING for 90 FLUoxetine Yes fluoxetine M ethodi (PROzac) 40 6-[address] MG capsule 00:00: capsule [facility] 00 l gabapentin 0 Yes 1{tbl} 1 tablet. [facility] (NEURONTIN) 6-01 st 300 mg 00:00: Hospita capsule 00 l simvastatin 0 Yes TAKE 1 Meth naresh (ZOCOR) 20 6-[address] mg tablet 00:00: MOUTH Hospita 00 EVERY DAY l IN THE EVENING for 90 BABY 2020-0 Yes [facility] ASPIRIN 6 st ORAL 00:00: Hospita 00 l cholecalcif 2020-0 Yes Method i richard, 6 st vitamin D3, 00:00: Hospit a (Vitamin 00 l D3) 2,000 unit tablet ferrous 2020-0 Yes [facility] sulfate 6 st (iron) 325 00:00: Hospita (65 FE) MG 00 l tablet ibuprofen 2020-0 Yes [facility] (ADVIL) 200 6- st MG tablet 00:00: Hospita 00 l BABY 2020-0 Yes [facility] ASPIRIN 6 st ORAL 00:00: Hospita 00 l cholecalcif 2020-0 Yes Method i richard, 6 st vitamin D3, 00:00: Hospit a (Vitamin 00 l D3) 2,000 unit tablet ferrous 2020-0 Yes [facility] sulfate 6- st (iron) 325 00:00: Hospita (65 FE) MG 00 l tablet ibuprofen 2020-0 Yes [facility] (ADVIL) 200 6- st MG tablet 00:00: Hospita 00 l BABY 2020-0 Yes [facility] ASPIRIN 6 st ORAL 00:00: Hospita 00 l cholecalcif 2020-0 Yes Method i richard, 6 st vitamin D3, 00:00: Hospit a (Vitamin 00 l D3) 2,000 unit tablet ferrous 2020-0 Yes Method[facility] sulfate 6- st (iron) 325 00:00: Hospita (65 FE) MG 00 l tablet ibuprofen 2020-0 Yes [facility] (ADVIL) 200 6- st MG tablet 00:00: Hospita 00 l FLUoxetine 2016-08 Yes 40mg Take 40 mg U nivers (PROZAC) 40 2-07 by mouth ity of mg capsule 20:29: daily. [place] [facility] zolpidem 2016-08 Yes 10mg Take 10 mg Uni vers (AMBIEN) 10 2-07 by mouth ity of mg tablet 20:29: at bedtime [facility] 36 as needed Medical for Branch Insomnia. clonazePAM 2016-08 Yes 2mg Take 2 mg [facility] (KLONOPIN) 2-07 by mouth 2 ity of 2 mg tablet 20:29: (two) [place] 36 times Medical daily. Branch buprenorphi 2016-08 [...] needed for Branch Constipati on. acetaminoph Yes acetaminop Methodi en-codeine 6-[address] (TYLENOL 00:00: mg-codeine [facility] WITH 00 30 mg l CODEINE #3) tablet 300-30 mg per tablet acetaminoph Yes acetaminop Method[facility] en-codeine 6-[address] (TYLENOL 00:00: mg-codeine [facility] WITH 00 30 mg l CODEINE #3) tablet 300-30 mg per tablet acetaminoph Yes 1{tbl} Take 1 [facility] [...] Source Body height 2023-05-28 18:21:00 167.6 cm [facility] Body weight 2023-05-28 18:21:00 70.308 kg [facility] BMI 2023-05-28 18:21:00 25.02 kg/m2 [facility] Systolic blood 2023-05-14 14:52:00 122 mm[Hg] [facility] pressure Diastolic blood 2023-05-14 14:52:00 83 mm[Hg] [facility] pressure Heart rate 2023-05-14 14:52:00 93 /min [facility] Respiratory rate 2023-05-14 14:52:00 16 /min [facility] Oxygen saturation in 2023-05-14 14:52:00 93 /min [facility] Arterial blood by Pulse oximetry Body height 2023-01-26 17:05:00 167.6 cm [facility] Body weight 2023-01-26 17:05:00 72.576 kg [facility] BMI 2023-01-26 17:05:00 25.82 kg/m2 [facility] Procedures Procedure Date / Time Performing Clinician Source Performed EMG 2023-06-05 20:35:22 [facility] ospital MRI PELVIS W WO CONTRAST 2023-05-28 19:36:41 [facility] MRI CERVICAL SPINE WO 2023-05-28 18:52:03 [facility] CONTRAST XR HANDS 3 VW BILATERAL 2023-05-14 19:10:00 [facility] XR HIPS BILATERAL AP 2023-05-14 18:50:00 [facility] LATERAL W AP PELVIS XR FOOT 3 VW BILATERAL 2023-05-14 18:38:00 [facility] XR CERVICAL SPINE 2023-05-14 18:28:00 [facility] COMPLETE W FLEX EXT HLA-B27 ANTIGEN BY FLOW 2023-05-14 16:48:00 [facility] CYTOMETRY SEDIMENTATION RATE 2023-05-14 16:48:00 [facility] C-REACTIVE PROTEIN 2023-05-14 16:48:00 [facility] VITAMIN D 25 HYDROXY 2023-05-14 16:48:00 [facility] LEVEL URIC ACID LEVEL 2023-05-14 16:48:00 [facility] ospital ACUTE VIRAL HEPATITIS 2023-05-14 16:48:00 [facility] PANEL (HAV, HBV, HCV) COMPREHENSIVE METABOLIC 2023-05-14 16:48:00 [facility] PANEL CBC WITH PLATELET AND 2023-05-14 16:48:00 [facility] DIFFERENTIAL HIV 1/2 ANTIGEN/ANTIBODY, 2023-05-14 16:48:00 [facility] FOURTH GENERATION, WITH REFLEXES FINE NEEDLE ASPIRATION 2023-05-14 16:36:33 [facility] W/IMAGE TX ARTHROCENTESIS 2023-05-14 14:30:00 [facility] ASPIR&/INJ INTERM JT/BURS W/O US CRYSTAL ANALYSIS 2023-05-14 14:30:00 [facility] SYNOVIAL FLUID, CELL 2023-05-14 14:30:00 [facility] COUNT MRI LUMBAR SPINE WO 2023-02-09 18:26:53 AnabellaWanda harris [facility] CONTRAST MRI THORACIC SPINE WO 2023-02-09 17:59:[address] [facility] CONTRAST XR PELVIS 1 OR 2 VW 2023-01-26 17:26:17 Wanda Kyle [facility] REFERRAL- 2020-06-24 06:01:00 Doctor Unassigned, [facility] REQUEST/RESPONSE [place] [facility] Plan of Care Planned Activity Planned Date Details Comments Source Future Scheduled 2023-06-12 Screening for [facility] Test 07:55:16 malignant neoplasm of colon (procedure) [code = 042072742] Future Scheduled 2023-06-12 Screening for [facility] Test 07:55:16 malignant neoplasm of colon (procedure) [code = 233017922] Future Scheduled 2023-06-12 Pneumococcal Vaccine: [facility] Test 07:55:16 Pediatrics (0 to 5 Years) and At-Risk Patients (6 to 64 Years) (1 - PCV) [code = Pneumococcal Vaccine: Pediatrics (0 to 5 Years) and At-Risk Patients (6 to 64 Years) (1 - PCV)] Future Scheduled 2023-06-12 Screening for [facility] Test 07:55:16 malignant neoplasm of cervix (procedure) [code = 570303253] Future Scheduled 2023-06-12 BREAST CANCER [facility] Test 07:55:16 SCREENING [code = BREAST CANCER SCREENING] Future Scheduled 2023-06-12 Screening for [facility] Test 07:55:16 malignant neoplasm of colon (procedure) [code = 932345770] Future Scheduled 2023-06-12 Screening for [facility] Test 07:55:16 malignant neoplasm of colon (procedure) [code = 085966821] Future Scheduled 2023-06-12 Screening for [facility] Test 07:55:16 malignant neoplasm of lung (procedure) [code = 704935576] Future Scheduled 2023-06-12 [facility] 07:55:16 of 2) [code = SHINGLES VACCINES (1 of 2)] Future Scheduled 2023-06-12 COVID-19 VACCINE (5 - [facility] Test 07:55:16 season) [code = COVID-19 VACCINE ( - season)] Future Scheduled 2023-06-12 INFLUENZA VACCINE (#1) [facility] Test 07:55:16 [code = INFLUENZA VACCINE (#1)] Future Scheduled 2023-06-12 Screening for [facility] Test 07:55:16 malignant neoplasm of colon (procedure) [code = 891441318] Future Scheduled 2023-06-07 Screening for [facility] Test 10:47:22 malignant neoplasm of colon (procedure) [code = 851735720] Future Scheduled 2023-06-07 Screening for [facility] Test 10:47:22 malignant neoplasm of colon (procedure) [code = 701622687] Future Scheduled 2023-06-07 Screening for [facility] Test 10:47:22 malignant neoplasm of colon (procedure) [code = 598533644] Future Scheduled 2023-06-07 Pneumococcal Vaccine: [facility] Test 10:47:22 Pediatrics (0 to 5 Years) and At-Risk Patients (6 to 64 Years) (1 - PCV) [code = Pneumococcal Vaccine: Pediatrics (0 to 5 Years) and At-Risk Patients (6 to 64 Years) (1 - PCV)] Future Scheduled 2023-06-07 Screening for [facility] Test 10:47:22 malignant neoplasm of cervix (procedure) [code = 670958216] Future Scheduled 2023-06-07 BREAST CANCER [facility] Test 10:47:22 SCREENING [code = BREAST CANCER SCREENING] Future Scheduled 2023-06-07 Screening for [facility] Test 10:47:22 malignant neoplasm of colon (procedure) [code = 912476390] Future Scheduled 2023-06-07 Screening for [facility] Test 10:47:22 malignant neoplasm of colon (procedure) [code = 679453232] Future Scheduled 2023-06-07 Screening for [facility] Test 10:47:22 malignant neoplasm of lung (procedure) [code = 514416543] Future Scheduled 2023-06-07 SHINGLES VACCINES (1 Met [facility] Test 10:47:22 of 2) [code = SHINGLES VACCINES (1 of 2)] Future Scheduled 2023-06-07 RSV VACCINES > 60 YR Met [facility] Test 10:47:22 (1 - 1-dose 60+ series) [code = RSV VACCINES > 60 YR (1 - 1-dose 60+ series)] Future Scheduled 2023-06-07 COVID-19 VACCINE (5 - [facility] Test 10:47:22 season) [code = COVID-19 VACCINE (5 - season)] Future Scheduled 2023-06-07 INFLUENZA VACCINE (#1) [facility] Test 10:47:22 [code = INFLUENZA VACCINE (#1)] Future Scheduled 2023-03-07 Screening for [facility] Test 20:40:11 malignant neoplasm of colon (procedure) [code = 152570595] Future Scheduled 2023-03-07 Screening for [facility] Test 20:40:11 malignant neoplasm of colon (procedure) [code = 613264976] Future Scheduled 2023-03-07 Screening for [facility] Test 20:40:11 malignant neoplasm of colon (procedure) [code = 810983518] Future Scheduled 2023-03-07 Pneumococcal Vaccine: [facility] Test 20:40:11 Pediatrics (0 to 5 Years) and At-Risk Patients (6 to 64 Years) (1 - PCV) [code = Pneumococcal Vaccine: Pediatrics (0 to 5 Years) and At-Risk Patients (6 to 64 Years) (1 - PCV)] Future Scheduled 2023-03-[address] [facility] Test 20:40:11 (procedure) [code = 409010545] Future Scheduled 2023-03-07 Screening for [facility] Test 20:40:11 malignant neoplasm of cervix (procedure) [code = 666895143] Future Scheduled 2023-03-07 BREAST CANCER [facility] Test 20:40:11 SCREENING [code = BREAST CANCER SCREENING] Future Scheduled 2023-03-07 Screening for [facility] Test 20:40:11 malignant neoplasm of colon (procedure) [code = 851883269] Future Scheduled 2023-03-07 Screening for [facility] Test 20:40:11 malignant neoplasm of colon (procedure) [code = 647081030] Future Scheduled 2023-03-07 Screening for [facility] Test 20:40:11 malignant neoplasm of lung (procedure) [code = 607348096] Future Scheduled 2023-03-07 SHINGLES VACCINES (1 Met [facility] Test 20:40:11 of 2) [code = SHINGLES VACCINES (1 of 2)] Future Scheduled 2023-03-07 INFLUENZA VACCINE [facility] Test 20:40:11 [code = INFLUENZA VACCINE] Encounters Start End Encounter Admission Attending Care Care Encounter Source Date/Time Date/Time Type Type Clinicians Facility Department ID 2023-05-02 Outpatient j carlosBooker [facility] [id number] 02 Common 16:15:[id number] [facility] 2021-09-14 Outpatient Shondavicenta [facility] [id number] 02 Common 12:44:[id number] [facility] 2021-09-14 Outpatient j carlosMarebintavicenta [facility] [id number] 02 Common 12:06:[id number] [facility] 2021-09-14 Outpatient Citlaly [facility] [id number] 02 Common 12:06:03 Leonel [id number] Kiani t - [facility] 2023-06-11 2023-06-11 Orders Taqueria, 1.2.840.1 [id number] Methodi 00:00:00 00:00:00 Only Soudabeh [id number] 3.430.2.7 Hospit a .3.759423 l .8 2023-06-05 2023-06-05 Outpatient TAQUERIA, [facility] [id number] [place] 00:00:00 00:00:00 SOUDABEH [address] 2023-05-28 2023-05-28 Outpatient TAQUERIA, [facility] [id number] [place] 00:00:00 00:00:00 SOUDABEH [address] 2023-05-28 2023-05-28 Outpatient TAQUERIA, [facility] [id number] [place] 00:00:00 00:00:00 SOUDABEH [address] 2023-05-22 2023-05-22 Transcribe Vandergriff 1.2.840.1 [id number] Methodi 00:00:00 00:00:00 Orders t, Brooke [id number] 3.430.2.7 Hospit a .3.304787 l .8 2023-05-22 2023-05-22 Transcribe Vandergriff 1.2.840.1 [id number] Methodi 00:00:00 00:00:00 Orders t, Brooke 85482.1.[address] 3.430.2.7 Hospit a .3.746703 l .8 2023-05-17 2023-05-17 Transcribe Osiel, 1.2.840.1 [id number] Methodi 00:00:00 00:00:00 [address]na [address].1.[address] 3.430.2.7 Hospit a .3.974275 l .8 2023-05-17 2023-05-[facility] 1.[facility].840[facility] [id number] Methodi 00:00:00 00:00:00 [address]na [address] 3.430.2.7 Hospit a .3.878833 l .8 2023-05-14 2023-05-14 [facility], 1.2.840.1 [id number] Methodi 12:56:00 23:59:00 Encounter Dailynina 44675.1.1 919 s t 3.430.2.7 Hospit a .3.682687 l .8 2023-05-14 2023-05-14 [facility], 1.2.840.1 [id number] Methodi 12:54:49 12:55:00 Encounter Dailynina 32492.1.1 920 s t 3.430.2.7 Hospit a .3.165174 l .8 2023-05-14 2023-05-14 [facility], 1.2.840.1 [id number] Methodi 12:54:17 12:55:00 Encounter Soujoyceernestine 04038.1.1 924 s t 3.430.2.7 Hospit a .3.701674 l .8 2023-05-14 2023-05-14 [facility] 1.2.840.1 [id number] Methodi 12:45:00 12:53:00 Encounter Xavi Martin 23323.1.[address] 3.430.2.7 Hospit a .3.489610 l .8 2023-05-14 2023-05-14 [facility], 1.2.840.1 [id number] Methodi 09:30:00 10:30:00 Visit Pamela 79289.1.[address] 3.430.2.7 Hospit a .3.953720 l .8 2023-05-14 2023-05-14 [facility], 1.2.840.1 [id number] Methodi 09:30:00 10:30:00 Visit Pamela 00291.1.[address] 3.430.2.7 Hospit a .3.175451 l .8 2023-05-14 2023-05-14 [facility], 1.2.840.1 [id number] [place] 00:00:00 00:00:00 Encounter SOUNINA 80234.1.1 [address]7 [address] .3.240348 .8 2023-05-14 2023-05-14 [facility], 1.2.840.1 [id number] [place] 00:00:00 00:00:00 Encounter SOUDABEH 51199.1.1 [address] 3.430.2.7 st .3.784630 .8 2023-05-14 2023-05-14 [facility], 1.2.840.1 [id number] [place] 00:00:00 00:00:00 Encounter SOUJOYCEBEH 78748.1.1 [address] 3.430.2.7 st .3.581838 .8 2023-05-14 2023-05-14 [facility], 1.2.840.1 [id number] [place] 00:00:00 00:00:00 Encounter SOUJOYCEERNESTINE 01499.1.1 [address] 3.430.2.7 st .3.697031 .8 2023-03-14 2023-03-14 Office Mario, 1.2.840.1 [id number] Methodi 09:50:00 10:59:35 Visit Xavi Soliman 58685.1.1 530 s t 3.430.2.7 Hospit a .3.843427 l .8 2023-03-14 2023-03-14 Robbie Martin, 1.2.840.1 [id number] Methodi 09:50:00 10:59:35 Visit Xavi Soliman 58368.1.1 530 s t 3.430.2.7 Hospit a .3.506619 l .8 2023-02-09 2023-02-09 Outpatient [facility] [id number] [address] [place] [address] 00:00:00 00:00:[address] 2023-02-09 2023-02-09 Outpatient [facility] [id number] [address] [place] [address] 00:00:00 00:00:[address] 2023-01-26 2023-01-26 [facility] 1.2.840.1 [id number] Methodi 13:13:51 23:59:00 Encounter Xavi Soliman 42178.1.[address] 3.430.2.7 Hospit a .3.895975 l .8 2023-01-26 2023-01-26 [place] [id number] Methodi 13:13:51 23:59:00 Encounter Xavi Soliman 12624.1.[address] 3.430.2.7 Hospit a .3.151023 l .8 2023-01-26 2023-01-26 Office Wanda Kyle 1.2.840.1 [id number] Methodi 11:30:00 13:18:51 Visit Janelle 21440.1.[address] 3.430.2.7 Hospit a .3.938780 l .8 2023-01-26 2023-01-26 Office Wanda Kyle 1.2.840.1 [id number] Methodi 11:30:00 13:18:51 Visit Janelle 30511.1.[address] 3.430.2.7 Hospit a .3.976827 l .8 2023-01-26 2023-01-26 [facility] 1.2.840.1 [id number] Methodi 12:57:11 13:12:00 Encounter Xavi Soliman 19770.1.[address] 3.430.2.7 Hospit a .3.638005 l .8 2023-01-26 2023-01-26 [facility] 1.2.840.1 [id number] Methodi 12:57:11 13:12:00 Encounter Xavi Soliman [address]898.1.[address] 3.430.2.7 Hospit a .3.380609 l .8 2023-01-26 2023-01-26 [facility], 1.2.840.1 [id number] Methodi 12:56:22 12:56:22 Encounter Xavi Soliman 78354.1.[address] 3.430.2.7 Hospit a .3.682400 l .8 2023-01-26 2023-01-26 [facility], 1.2.840.1 [id number] 41136 Methodi 12:56:22 12:56:22 Encounter Xavi Soliman 87068.1.[address] 3.430.2.7 Hospit a .3.890464 l .8 2023-01-26 2023-01-26 [facility], 1.2.840.1 [id number] 26584 Methodi 12:55:21 12:55:21 Encounter Xavi Soliman 39575.1.[address] 3.430.2.7 Hospit a .3.185375 l .8 2023-01-26 2023-01-26 [facility], 1.2.840.1 [id number] Methodi 12:55:21 12:55:21 Encounter Xavi Soliman 49024.1.[address] 3.430.2.7 Hospit a .3.355018 l .8 2023-01-26 2023-01-26 [facility], 1.2.840.1 [id number] 3784 Methodi 00:00:00 00:00:00 Only Xavi Soliman 76992.1.1 [address] 3.430.2.7 Hospit a .3.495302 l .8 2023-01-26 2023-01-26 [facility], 1.2.840.1 [id number] Methodi 00:00:00 00:00:00 Only Xavi Soliman 84451.1.1 396 s t 3.430.2.7 Hospit a .3.178798 l .8 2023-01-26 2023-01-26 Outpatient [facility] [id number] [place] 00:00:00 00:00:[address] 2023-01-04 2023-01-04 Travel 1.2.840.1 1.2.420.089 [id number] Methodi 00:00:00 00:00:[address] 3.430.2.7 0.2.7.3.698 Ho spita .3.229618 084.8 l .8 2023-01-04 2023-01-04 Travel 1.2.840.1 1.2.928.204 [id number] Methodi 00:00:00 00:00:[address] 3.430.2.7 0.2.7.3.698 Ho spita .3.532498 084.8 l .8 2020-06-24 2020-06-24 Orders Doctor RUCKER 1.2.840.114 [id number] Univers 00:00:00 00:00:00 Only Unassigned, SUHA 350.1.13.10 ity of [facility] 4.2.7.2.686 Steven as [id number] [facility] 009 Branch 2020-06-24 2020-06-24 Orders Doctor ALKA 1.2.840.114 [id number] 00:00:00 00:00:00 Only Unassigned, SUHA 350.1.13.10 [facility] 4.2.7.2.686 [id number] 009 Results Test Description Test Time Test Comments Results Result Comments Source Comprehensive metabolic panel 2023-05-18 04:26:00 Test Item Value Reference Range Interpretation Comme nts Glucose (test code = 90 mg/dL 65-99 Fastin g reference 2345-7) interval BUN (test code = 3094-0) 13 mg/dL 7-25 Creatinine (test code = 0.86 mg/dL 0.50-1.05 2160-0) eGFR (test code = 77 See_Comment [Automate d message] 07741-4) The system [employer] generated this result transmitted ref erence range: [...] mal. Sodium (test code = 137 mmol/L 301-813 7346-2) Potassium (test code = 3.8 mmol/L 3.5-5.3 2823-3) Chloride (test code = 99 mmol/L 98-110 2075-0) CO2 (test code = 8-9) 28 mmol/L 20-32 Calcium (test code = 10.2 mg/dL 8.6-10.4 87571-7) Protein (test code = 7.2 g/dL 6.1-8.1 2885-2) Albumin (test code = 4.5 g/dL 3.6-5.1 1751-7) Globulin, total (test 2.7 See_Comment [Auto mated message] code = 76297-8) The system [facility] generated this result transmitted ref erence range: 1.9 - 3. 7 g/dL (calc). The ref erence range was not u sed to interpret this result as normal/abnor mal. Albumin/globulin ratio 1.7 See_Comment [Aut omated message] (test code = 1759-0) The [facility] tem which generated this result transmitted ref erence range: 1.0 - 2. 5 (calc). The ref erence range was not u sed to interpret this result as normal/abnor mal. Total bilirubin (test 0.5 mg/dL 0.2-1.2 code = 1974-2) Alkaline phosphatase 77 U/L 37-153 (test code = 6768-6) AST (test code = 1920-8) 23 U/L 10-35 ALT (test code = 1742-6) 22 U/L 6-29 TARIQ (test code = TARIQ) FASTING:YESLTC ONLY: NURSE COLLECTED - NO SPECIMEN PROVIDED. FASTING: YES RAC (test code = RAC) Performing Organization Information: Site ID: A Name: [facility] Address: [address] [place] [phone] Director: [facility] Hospital[facility] [id number] 04:26:00 Test Item Value Reference Range Interpretation Comments Uric acid 4.1 mg/dL 2.5-7.0 Therapeutic tar get (test code = for gout patien ts: 3084-1) <6.0 mg/dL TARIQ (test FASTING:YESLTC ONLY: code = TARIQ) NURSE COLLECTED - NO SPECIMEN PROVIDED. FASTING: YES RAC (test Performing code = RAC) Organization Information: Site ID: [facility] Name: [facility] Address: [address] [place] [address] Director: [facility] HospitalC-reactive [id number] 04:26:00 Test Item Value Reference Range Interpretation Comments CRP (test code = 5.3 mg/L <=8.0 1987-) TARIQ (test code = FASTING:YESLTC ONLY: NURSE TARIQ) COLLECTED - NO SPECIMEN PROVIDED. FASTING: YES RAC (test code = Performing Organization RAC) Information: Site ID: [facility] Name: [facility] Address: [address] [place] [phone] Director: [facility] HospitalCB with platelet and [id number] 04:26:00 Test Item Value Reference Range Interpretation Comments WBC (test code = 6.9 See_Comment [Automated 9391-2) message] The system which generated this result transmitted reference range : 3.8 - 10.8 Thousand/uL. Th e reference range was not used to interpret this result as normal/abnormal . RBC (test code = 4.72 See_Comment [Automated 861-8) message] The system which generated this result [...] = Performing RAC) Organization Information: Site ID: [facility]: [facility] Address: [address] [place] [address] [facility] [id number] 04:26:00 Test Item Value Reference Range Interpretation [...] = Performing RAC) Organization Information: Site ID: [facility] Name: [facility] Address: [address] [place] [address] Director: [facility] HospitalVitamin D 25 hydroxy [id number] 04:26:00 Test Item Value Reference Range Interpretation Comments Vitamin D, 25-hydroxy 25 ng/mL 30-100 L Vitami n D Status (test code = 1988-) 25-OH V itamin D: Deficiency: <20 ng/mLInsufficie [...] 1 For additional information, please refer to http://educatio n .[employer]/faq/FAQ19 9 (This link is being provided for informational/e d ucational purposes only.) TARIQ (test code = TARIQ) FASTING:YESLTC ONLY: NURSE COLLECTED - NO SPECIMEN PROVIDED. FASTING: YES RAC (test code = RAC) Performing Organization Information: Site ID: [facility] Name: [facility] Address: [address] [place] [phone] Director: [facility] Interpretation Abnormal (test code = 03821-9) [facility] panel (HAV, HBV, HCV)2023-05-18 04:26:00 Test Item Value Reference Range Interpretation Comments Hepatitis A IgM NON-REACTIVE NON-REACTIVE For additio nal (test code = information, 15622-6) please refer to http://mobiTeris uestCoferons .co m/faq/EBB488 (T his link is being provided for informational/e cathy ational purpose s only.) Hepatitis B NON-REACTIVE NON-REACTIVE For additional surface Ag (test information , code = 5196-1) please refer to http://[employer].CheckiO uBlueRoadss .co m/faq/VJL999 (T his link is being provided for informational/e cathy ational purpose s only.) Hepatitis B core NON-REACTIVE NON-REACTIVE For additi onal IgM (test code = information , 71197-1) please refer to http://Quench[employer] .co m/faq/TXR115 (T his link is being provided for informational/e cathy ational purpose s only.) Hepatitis C Ab NON-REACTIVE NON-REACTIVE HCV antibody was (test code = non-reactive. 57991-2) There is no laboratory evidence of HCV infection. In m ost cases, no furth er action is required. However,if rece nt HCV exposure is suspected, a te st for HCV RNA(veronica t code 51541) is suggested. For additional information ple ase refer tohttp://educat ion .[employer]. com/faq/HFK15f6 (Th is link is bein g provided for informational/e cathy ational purpose s only.) TARIQ (test code = FASTING:YESLTC TARIQ) ONLY: NURSE COLLECTED - NO SPECIMEN PROVIDED. FASTING: YES RAC (test code = Performing RAC) Organization Information: Site ID: RGA [facility]: [facility] Address: [address] [place] [address] Director: Amy Mayen [facility] WestHLA-B27 antigen by flow [id number] 04:26:00 Test Item Value Reference Range Interpretation Comments HLA B27 (test code NEGATIVE NEGATIVE = 12149-3) TARIQ (test code = FASTING:YESLTC ONLY: NURSE TARIQ) COLLECTED - NO SPECIMEN PROVIDED. FASTING: YES RAC (test code = Performing Organization RAC) Information: Site ID: IG [facility] Address: [address] [place] [address] Director: Dr. Arthur Hall [facility] WestHIV 1/2 antigen/antibody, fourth generation, with reflexes 2023-05-18 04:26:00 Test Item Value Reference Range Interpretation Comments HIV NON-REACTIVE NON-REACTIVE HIV-1 antigen a nd antigen/ant HIV-1/HIV-2 ant ibodies ibody 4th were notdetecte d. There gen (test is no laborator y evidence code = of HIVinfection . PLEASE 91919-9) NOTE: This info rmation has been disclo sed toyou from records wh ose confidentiality may beprotected by state law. If your state r equires suchprotection, then the state law prohi bits you frommaking any further disclosure of t he informationwith out the specific writte n consent of the personto whom it pertains, or as otherwise permitted by george hollisA general authori zation for the release of medical orother informa tion is NOT sufficient for this purpose. For ad ditional information ple ase refer tohttp://educat ion.[employer]/ faq/OEW020 (This link is b eing provided for informational/e ducational purposes only.) The performance of this assay has not been clinicallyvalid ated in patients less t hardy 2 years old. TARIQ (test FASTING:YESLTC code = TARIQ) ONLY: NURSE COLLECTED - NO SPECIMEN PROVIDED. FASTING: YES RAC (test Performing code = RAC) Organization Information: Site ID: RGA [facility]: [facility] Address: [address] [place] [address] Director: Amy Mayen [facility] WestComprehensive metabolic [id number] 04:26:00 Test Item Value Reference Range Interpretation Comments Glucose (test code 90 mg/dL 65-99 Fasting = 2345-7) reference interval BUN (test code = 13 mg/dL 7-25 3094-0) Creatinine (test 0.86 mg/dL 0.50-1.05 code = 2160-0) eGFR (test code = 77 See_Comment [Automate d 19087-3) message] The system which generated this result transmitted reference range : > OR = 60 mL/min/1.73m2. The reference range was not used to interpr et this result as normal/abnormal . BUN/creatinine SEE NOTE: See_Comment Not Reported : ratio (test code = BUN and 3097-3) Creatinine are within referenc e range. [Automat ed message] The system which generated this result transmitted reference range : 6 - 22 (calc). The reference range was not used to interpr et this result as normal/abnormal . Sodium (test code 137 mmol/L 135-146 = 2951-2) Potassium (test 3.8 mmol/L 3.5-5.3 code = 2823-3) Chloride (test 99 mmol/L 98-110 code = 2075-0) CO2 (test code = 28 mmol/L 20-32 2027-9) Calcium (test code 10.2 mg/dL 8.6-10.4 = 99156-2) Protein (test code 7.2 g/dL 6.1-8.1 = 2885-2) Albumin (test code 4.5 g/dL 3.6-5.1 = 1751-7) Globulin, total 2.7 See_Comment [Automated (test code = message] The 24011-3) system which generated this result transmitted reference range : 1.9 - 3.7 g/dL (calc). The reference range was not used to interpret this result as normal/abnormal . Albumin/globulin 1.7 See_Comment [Automated ratio (test code = message] The 175-0) system which generated this result transmitted reference range : 1.0 - 2.5 (calc ). The reference range was not used to interpr et this result as normal/abnormal . Total bilirubin 0.5 mg/dL 0.2-1.2 (test code = 1974-2) Alkaline 77 U/L 37-153 phosphatase (test code = 6768-6) AST (test code = 23 U/L 10-35 1920-8) ALT (test code = 22 U/L 6-29 1742-6) TARIQ (test code = FASTING:YESLTC TARIQ) ONLY: NURSE COLLECTED - NO SPECIMEN PROVIDED. FASTING: YES RAC (test code = Performing RAC) Organization Information: Site ID: [facility] Name: [facility] Address: [address] [place] [address] Director: [facility] HospitalUric acid [id number] 04:26:00 Test Item Value Reference Range Interpretation Comments Uric acid 4.1 mg/dL 2.5-7.0 Therapeutic tar get (test code = for gout patien ts: 3084-1) <6.0 mg/dL ATRIQ (test FASTING:YESLTC ONLY: code = TARIQ) NURSE COLLECTED - NO SPECIMEN PROVIDED. FASTING: YES RAC (test Performing code = RAC) Organization Information: Site ID: [facility] Name: [facility] Address: [address] [place] [address] Director: [facility] HospitalC-reactive [id number] 04:26:00 Test Item Value Reference Range Interpretation Comments CRP (test code = 5.3 mg/L <=8.0 1987-5) TARIQ (test code = FASTING:YESLTC ONLY: NURSE TARIQ) COLLECTED - NO SPECIMEN PROVIDED. FASTING: YES RAC (test code = Performing Organization RAC) Information: Site ID: [facility] Name: [facility] Address: [address] [place] [address] Director: [facility] HospitalCB with platelet and wetanfpibcnj5198-23-97 04:26:00 Test Item Value Reference Range Interpretation Comments WBC (test code = 6.9 See_Comment [Automated 9049-2) message] The system which generated this result transmitted reference range : 3.8 - 10.8 Thousand/uL. Th e reference range was not used to interpret this result as normal/abnormal . RBC (test code = 4.72 See_Comment [Automated 288-8) message] The system which generated this result [...] = Performing RAC) Organization Information: Site ID: [facility] Name: [facility] Address: [address] [place] [address] Director: [facility] [id number] 04:26:00 Test Item Value Reference Range Interpretation [...] RAC) Organization Information: Site ID: A Name: [facility] Address: [address] [place] [address] Director: [facility] HospitalVitamin D 25 hydroxy [id number] 04:26:00 Test Item Value Reference Range Interpretation Comments Vitamin D, 25-hydroxy 25 ng/mL 30-100 L Vitami n D Status (test code = 1988-) 25-OH V itamin D: Deficiency: <20 ng/mLInsufficie [...] 1 For additional information, please refer to http://educatio n .King[employer] Network ScienceDiagnosti [employer]/faq/FAQ19 9 (This link is being provided for informational/e d ucational purposes only.) TARIQ (test code = TARIQ) FASTING:YESLTC ONLY: NURSE COLLECTED - NO SPECIMEN PROVIDED. FASTING: YES RAC (test code = RAC) Performing Organization Information: Site ID: A Name: [facility] Address: [address] [place] [phone] Director: [facility] Interpretation Abnormal (test code = 99124-7) [facility] ([facility]AV, HBV, HCV)2023-05-18 04:26:00 Test Item Value Reference Range Interpretation Comments Hepatitis A IgM NON-REACTIVE NON-REACTIVE For additio nal (test code = information, 61011-8) please refer to http://mobiTeris uBlueRoadss .co m/faq/BNW838 (T his link is being provided for informational/e cathy ational purpose s only.) Hepatitis B NON-REACTIVE NON-REACTIVE For additional surface Ag (test information , code = 5196-1) please refer to http://[place] n.CheckiO uBlueRoadss .co m/faq/TRI045 (T his link is being provided for informational/e cathy ational purpose s only.) Hepatitis B core NON-REACTIVE NON-REACTIVE For additi onal IgM (test code = information , 20920-0) please refer to http://Quenchs .co m/faq/MEX829 (T his link is being provided for informational/e cathy ational purpose s only.) Hepatitis C Ab NON-REACTIVE NON-REACTIVE HCV antibody was (test code = non-reactive. 08887-2) There is no laboratory evidence of HCV infection. In m ost cases, no furth er action is required. However,if rece nt HCV exposure is suspected, a te st for HCV RNA(veronica t code 17621) is suggested. For additional information ple ase refer tohttp://educat ion .[employer] com/faq/QES92b9 (Th is link is doris g provided for informational/e cathy ational purpose s only.) TARIQ (test code = FASTING:YESLTC TARIQ) ONLY: NURSE COLLECTED - NO SPECIMEN PROVIDED. FASTING: YES RAC (test code = Performing RAC) Organization Information: Site ID: RGA [facility]: [facility] Address: [address] [place] [address] Director: Amy Mayen [facility] WestHLA-B27 antigen by flow [id number] 04:26:00 Test Item Value Reference Range Interpretation Comments HLA B27 (test code NEGATIVE NEGATIVE = 63269-3) TARIQ (test code = FASTING:YESLTC ONLY: NURSE TARIQ) COLLECTED - NO SPECIMEN PROVIDED. FASTING: YES RAC (test code = Performing Organization RAC) Information: Site ID: IG [facility]: [facility] Address: [address] [place] [address] Director: Dr. [facility] HospitalHIV 1/2 antigen/antibody, fourth generation, with reflexes 2023-05-18 04:26:00 Test Item Value Reference Range Interpretation Comments HIV NON-REACTIVE NON-REACTIVE HIV-1 antigen a nd antigen/ant HIV-1/HIV-2 ant ibodies ibody 4th were notdetecte d. There gen (test is no laborator y evidence code = of HIVinfection . PLEASE 18159-5) NOTE: This info rmation has been disclo sed toyou from records wh ose confidentiality may beprotected by state law. If your state r equires suchprotection, then the state law prohi bits you frommaking any further disclosure of t he informationwith out the specific writte n consent of the personto whom it pertains, or as otherwise permitted by george hollisA general authori zation for the release of medical orother informa tion is NOT sufficient for this purpose. For ad ditional information ple ase refer tohttp://educat ion.[employer]/ faq/MUO860 (This link is b eing provided for informational/e ducational purposes only.) The performance of this assay has not been clinicallyvalid ated in patients less t hardy 2 years old. TARIQ (test FASTING:YESLTC code = TARIQ) ONLY: NURSE COLLECTED - NO SPECIMEN PROVIDED. FASTING: YES RAC (test Performing code = RAC) Organization Information: Site ID: RGA [facility]: [facility] Address: [address] [place] [address] Director: Amy Sarmiento [facility]yn[facility], cell [id number] 20:22:00 Test Item Value Reference Range Interpretation Comments Site (test code = NOT GIVEN 52485-0) Color, fluid (test YELLOW STRAW/YELLOW code = 49843-2) Appearance (test HAZY CLEAR/HAZY code = 06927-0) Nucleated cells, 1980 See_Comment H [Automated fluid (test code = message] The 814-4) system which generated this result transmitted reference range : <150 cells/uL. The reference range was not used to interpr et this result as normal/abnormal . Neutrophils, percent 79 % 0-24 H (test code = 93081-9) Lymphocytes, percent 0 % 0-74 (test code = 26451-5) Monocytes, percent 21 % 0-69 (test code = 66403-2) Eosinophils, percent 0 % 0-2 (test code = 44880-2) Basophils, percent 0 % 0-0 (test code = 00866-8) Synoviocyte percent 0 % 0-15 (test code = 62839-5) RAC (test code = Performing RAC) Organization Information: Site ID: RGA [facility] Address: [address] [place] [address] Director: Amy Mayen Lab Interpretation Abnormal (test code = 59725-4) [facility] [id number] 20:22:00 Test Item Value Reference Range Interpretation Comments Site (test code = NOT GIVEN 08677-1) Crystals, fluid NONE SEEN /HPF None seen (test code = 5781-0) RAC (test code = Performing Organization RAC) Information: Site ID: RGA [facility]: [facility] Address: [address] [place] [address] Director: Amy Mayen [facility] Hospitaloviaz fluid, cell [id number] 20:22:00 Test Item Value Reference Range Interpretation Comments Site (test code = NOT GIVEN 87338-2) Color, fluid (test YELLOW STRAW/YELLOW code = 48337-5) Appearance (test HAZY CLEAR/HAZY code = 64389-2) Nucleated cells, 1980 See_Comment H [Automated fluid (test code = message] The 814-4) system which generated this result transmitted reference range : <150 cells/uL. The reference range was not used to interpr et this result as normal/abnormal . Neutrophils, percent 79 % 0-24 H (test code = 11950-4) Lymphocytes, percent 0 % 0-74 (test code = 10639-1) Monocytes, percent 21 % 0-69 (test code = 99275-9) Eosinophils, percent 0 % 0-2 (test code = 88703-9) Basophils, percent 0 % 0-0 (test code = 05265-4) Synoviocyte percent 0 % 0-15 (test code = 40045-3) RAC (test code = Performing RAC) Organization Information: Site ID: JOSEFAA [facility] Address: [address] [place] [address] Director: Amy Mayen Lab Interpretation Abnormal (test code = 20647-3) [facility] WestCrystal [id number] 20:22:00 Test Item Value Reference Range Interpretation Comments Site (test code = NOT GIVEN 95741-9) Crystals, fluid NONE SEEN /HPF None seen (test code = 5781-0) RAC (test code = Performing Organization RAC) Information: Site ID: RGA [facility]: [facility] Address: [address] [place] [address] Director: Amy Mayen [facility]
--- NOTE | 2023-06-12 19:00 | ER ---
Nurse's Notes [facility] Name: Kelly Reddy Age: 62 yrs Sex: Female : 1960 Arrival Date: 06/12/2023 Time: 18:24 Bed 10 Private MD: David Ortega E Diagnosis: Olecranon bursitis, left elbow Presentation: 06/12 18:34 Chief complaint: Patient states: "We were messing with my left elbow and we pulled 19 cm10 things from my elbow and it looked like worms". Coronavirus screen: Vaccine status: Patient reports receiving the 2nd dose of the covid vaccine. Client denies travel out of the [place] in the last 14 days. Ebola Screen: Patient denies travel to an Ebola-affected area in the 21 days before illness onset. No symptoms or risks identified at this time. Initial Sepsis Screen: Does the patient meet any 2 criteria? No. Patient's initial sepsis screen is negative. Does the patient have a suspected source of infection? No. Patient's initial sepsis screen is negative. Risk Assessment: Do you want to hurt yourself or someone else? Patient reports no desire to harm self or others. Onset of symptoms was June 12, 2023. 18:34 Method Of Arrival: Wheelchair cm10 18:34 Acuity: JESSICA 4 cm10 Triage Assessment: 18:37 General: Appears in no apparent distress. comfortable, Behavior is calm, cooperative. cm10 Pain: Complains of pain in left elbow Pain does not radiate. Pain currently is 73 out of 10 on a pain scale. 18:37 Neuro: No deficits noted. Level of Consciousness is awake, alert, obeys commands, cm10 Oriented to person, place, time, situation. Respiratory: No deficits noted. Airway is patent Respiratory effort is even, unlabored, Respiratory pattern is regular, symmetrical. Historical: - Allergies: 18:36 Iodine; cm10 - PMHx: 18:36 Anemia; Bladder problem; chronic back pain; Hypertension; spinal stenosis; cm10 - PSHx: 18:36 tubal ligation; cm10 - Immunization history:: Adult Immunizations unknown. - Social history:: Smoking status: Patient reports the use of cigarette tobacco products, smokes one pack cigarettes per day. Screenin:40 [facility] ED Fall Risk Assessment (Adult) Score/Fall Risk Level 0 - 2 = Low Risk. Abuse eh3 screen: Denies threats or abuse. Denies injuries from another. Nutritional screening: No deficits noted. Tuberculosis screening: No symptoms or risk factors identified. Assessment: 18:40 General: Appears in no apparent distress. uncomfortable, Behavior is cooperative, eh3 anxious. Pain: Complains of pain in left elbow. Neuro: Level of Consciousness is awake, alert, obeys commands, Oriented to person, place, time, situation. Cardiovascular: Capillary refill < 3 seconds Patient's skin is warm and dry. Respiratory: Airway is patent Respiratory effort is even, unlabored, Respiratory pattern is regular, symmetrical. GI: Abdomen is round non-distended. Derm: Skin is pink, warm \\T\\ dry. Wound noted left elbow. Musculoskeletal: Circulation, motion, and sensation intact. Vital Signs: 18:34 BP 92 / 70; Pulse 86; Resp 16; Temp 97.9; Pulse Ox 98% ; Weight 71.67 kg; Height 5 ft. cm10 6 in. ; Pain 7/10; 18:34 Body Mass Index 25.50 (71.67 kg, 167.64 cm) cm10 18:34 Pain Scale: Adult cm10 ED Course: 18:25 Patient arrived in ED. rg4 18:25 David Ortega MD is Private Physician. rg4 18:26 Davidson Valdovinos MD is Attending Physician. ec2 18:36 Triage completed. cm10 18:37 Arm band placed on Patient placed in an exam room, on a stretcher. cm10 18:40 Patient has correct armband on for positive identification. Call light in reach. eh3 Provided Education on: Use of call jaeger. 18:59 Gabriela Hargrove, RUTH is Primary Nurse. eh3 19:00 Chapito Leary MD is Referral Physician. ec2 19:02 No provider procedures requiring assistance completed. Patient did not have IV access eh3 during this emergency room visit. 19:05 Dressings: non-adherent dressing x 1 left elbow. Mihir wrap to left elbow. eh3 Administered Medications: 19:05 Drug: Ketorolac IM 30 mg IM once Route: IM; Site: right deltoid; eh3 19:21 Follow up: Response: No adverse reaction eh3 Medication: 19:02 VIS not applicable for this client. eh3 Outcome: 19:00 Discharge ordered by . ec2 19:22 Discharged to home via wheelchair, with significant other, 3 19:22 Condition: stable 19:22 Discharge instructions given to patient, Instructed on discharge instructions, follow up and referral plans. Demonstrated understanding of instructions, follow-up care, :22 Patient left the ED. eh3 Signatures: Mireille Hall rg4 Gabriela Hargrove RN RN eh3 Cara Retana RN RN cm10 Davidson Valdovinos MD MD ec2
--- NOTE | 2023-06-12 19:00 | EDPHYS ---
Physician Documentation [facility] Name: Kelly Reddy Age: 62 yrs Sex: Female : 1960 Arrival Date: 06/12/2023 Time: 18:24 Bed 10 Private MD: David Ortega E ED Physician Davidson Valdovinos HPI: 06/12 18:43 This 62 yrs old Female presents to ER via Wheelchair with complaints of Elbow ec2 Problem. 18:43 Patient arrives today due to concern for left elbow drainage. Patient reports she has a ec2 history of chronic bursitis and has not seen an orthopedic surgeon yet. We will make the patient more concerned today is that she was able to express some fluid from it. Significant other is convinced that these are parasites. No fevers or chills, no trauma.. Historical: - Allergies: 18:36 Iodine; cm10 - PMHx: 18:36 Anemia; Bladder problem; chronic back pain; Hypertension; spinal stenosis; cm10 - PSHx: 18:36 tubal ligation; cm10 - Immunization history:: Adult Immunizations unknown. - Social history:: Smoking status: Patient reports the use of cigarette tobacco products, smokes one pack cigarettes per day. ROS: 18:43 Constitutional: as per hpi ec2 Exam: 18:43 Constitutional: GEN: NAD Head: atraumatic Eyes: EOMI Ears: External ears are ec2 normal. CV: regular rate LUNGS: no respiratory distress ABD: non-distended SKIN: Bursitis of the left elbow with an open wound that is draining serous fluid, no purulence, no overlying erythema or warmth, good range of motion of the elbow. MSK: no evidence of trauma NEURO: moves all extremities equally Vital Signs: 18:34 BP 92 / 70; Pulse 86; Resp 16; Temp 97.9; Pulse Ox 98% ; Weight 71.67 kg; Height 5 ft. cm10 6 in. ; Pain 7/10; 18:34 Body Mass Index 25.50 (71.67 kg, 167.64 cm) cm10 18:34 Pain Scale: Adult cm10 MDM: 18:26 Patient medically screened. ec2 18:43 ED course: Patient arrives today due to concern for left elbow concern. Examination ec2 remarkable for skin findings as noted above. Presentation is consistent with bursitis, no evidence of trauma to indicate obtaining an x-ray of the elbow. Low suspicion for a septic joint given her good range of motion and lack of systemic signs. Additionally will suspicion for cellulitis given lack of erythema or warmth. Intervention of the significant other is concern for parasites, there are fat globules that were expressed from the wound which are certainly not parasites. I will discharge home, return precautions given.. 19:01 Data reviewed: vital signs. ec2 Administered Medications: 19:05 Drug: Ketorolac IM 30 mg IM once Route: IM; Site: right deltoid; eh3 19:21 Follow up: Response: No adverse reaction eh3 Disposition Summary: 06/12/23 19:00 Discharge Ordered Notes: Location: Home ec2 Condition: Stable ec2 Diagnosis - Olecranon bursitis, left elbow ec2 Followup: ec2 - With: Chapito Leary MD - When: - Reason: Recheck today's complaints Discharge Instructions: - Discharge Summary Sheet ec2 - Elbow Bursitis, [id number] ec2 Forms: - Medication Reconciliation Form ec2 - Thank You Letter ec2 - Antibiotic Education ec2 - Prescription Opioid Use ec2 - Patient Portal Instructions ec2 - Leadership Thank You Letter ec2 Signatures: Gabriela Hargrove RN RN eh3 Cara Retana RN RN cm10 Davidson Valdovinos MD MD ec2
[2023-06-12] MEDS ORDERED: KETOROLAC 30 MG/ML INJ ONE (19:19)
== END 2023-06-12 19:22 | disposition home or self-care (01) ==
LOC: ER 18:24
DX: M70.22 Olecranon bursitis, left elbow (principal); F17.210 Nicotine dependence, cigarettes, uncomplicated; Z91.048 Other nonmedicinal substance allergy status

== ENCOUNTER 2023-09-20 13:10 | Day surgery (SDC) | payer OTHER ==
[2023-09-20 14:06] VITALS: BP 124/82; TEMP 97.6; O2SAT 100; BMI 25.0
--- NOTE | 2023-09-20 14:08 | RAD REPORT ---
EXAM DESCRIPTION: RADChest Single View09/20/2023 1:41 pm CLINICAL HISTORY: picc line placement COMPARISON: Chest Pa And Lat (2 Views) dated 08/21/2023; Chest Pa And Lat (2 Views) dated 09/21/2021; est Single View dated 09/19/2016 TECHNIQUE: Portable AP view of the chest. FINDINGS: Right arm PICC in satisfactory position with tip projecting at the distal SVC. The lungs a re clear clear of new focal opacities. However, pattern of interstitial thickening bilaterally, more pronounced peripherally appears stable or mildly increased since the prior exam, may relate to superi mposed infection. No pneumothorax or effusion. The cardiomediastinal contours are unremarkable. IMPRESSION: Satisfactory right arm PICC positioning. Stable to increasingly pronounced pattern of peripheral predominant interstitial thickening. Findings suggest chronic interstitial changes, possibly with superimposed infection.
== END 2023-09-20 14:00 | disposition home or self-care (01) ==
LOC: PICC 13:10 → DS 14:00
PROVIDERS: ATTEND Internal Medicine
PROC: 05H533Z Insertion of Infusion Device into Right Subclavian Vein, Percutaneous Approach (ICD-10-PCS; principal; 2023-09-20)
DX: L08.9 Local infection of the skin and subcutaneous tissue, unspecified (principal)
CPT/HCPCS: 36556; 71045

== ENCOUNTER 2024-07-29 13:26 | Emergency (ER) | payer OTHER ==
--- NOTE | 2024-07-29 15:27 | RAD REPORT ---
EXAMINATION: XR LEFT ELBOW CLINICAL INDICATION: Female, 63 years old. PAIN TECHNIQUE: Multiple views of the left elbow were obtained. COMPARISON: No prior exam. FINDINGS: Moderate soft tissue swelling along the posterior elbow including the olecranon. Mild arthr itic changes are present. No fracture seen. No radiographic finding to indicate osteomyelitis.
--- NOTE | 2024-07-29 15:48 | EDPHYS ---
Physician Documentation [facility] Name: Kelly Reddy Age: 63 yrs Sex: Female : 1960 Arrival Date: 07/29/2024 Time: 13:26 Bed 11 Private MD: ED Physician Jhon Hutchins HPI: 07/29 14:50 This 63 yrs old Female presents to ER via Wheelchair with complaints of Fall Injury, ms3 Arm Injury. 14:50 Kelly Reddy is a 63-year-old female who presents to the Emergency Department with ms3 concerns about her left elbow arm. She has been managing a non-healing wound in her arm since August, which has reduced from a [id number]-jipkw hole to a smaller one. Recently, on Sunday night, she experienced a popping sensation in her arm while getting into bed, resulting in increased pain and a bloody discharge from the wound, which had not been previously observed. The patient seeks an X-ray to rule out any fracture or further complications. . Historical: - Allergies: 14:04 Iodine; cm10 - PMHx: 14:04 Bladder problem; Anemia; chronic back pain; Hypertension; spinal stenosis; Depressive cm10 disorder; Hypercholesterolemia; - PSHx: 14:04 tubal ligation; cm10 - Immunization history:: Adult Immunizations up to date. - Infectious Disease History:: Denies. - Social history:: Smoking status: Patient reports the use of cigarette tobacco products, smokes one pack cigarettes per day. ROS: 14:50 Constitutional: Negative for fever, and chills. Cardiovascular: Negative for chest ms3 pain, and palpitations. Respiratory: Negative for shortness of breath, cough, wheezing, and pleuritic chest pain, Abdomen/GI: Negative for abdominal pain, nausea, vomiting, diarrhea, and constipation, 14:50 MS/extremity: Positive for left elbow pain, 14:50 Skin: Positive for left elbow wound, Exam: 14:50 Constitutional: This is a well developed, well nourished patient who is awake, alert, ms3 and in no acute distress. Neck: Trachea midline, no cervical lymphadenopathy. Supple, full range of motion without nuchal rigidity, or vertebral point tenderness. No Meningismus. Chest/axilla: Normal chest wall appearance and motion. Nontender with no deformity. Cardiovascular: Regular rate and rhythm with a normal S1 and S2. No gallops, murmurs, or rubs. Normal PMI, no JVD. No pulse deficits. Respiratory: Lungs have equal breath sounds bilaterally, clear to auscultation and percussion. No rales, rhonchi or wheezes noted. No increased work of breathing, no retractions or nasal flaring. Abdomen/GI: Soft, non-tender, with normal bowel sounds. No distension or tympany. No guarding or rebound. No evidence of tenderness throughout. 14:50 Skin: Chronic wound left elbow. No surrounding erythema. Vital Signs: 14:02 BP 101 / 76; Pulse 86; Resp 15; Temp 97.5(TE); Pulse Ox 98% on R/A; Weight 70.31 kg; cm10 Height 5 ft. 6 in. ; Pain 410; 14:02 Body Mass Index 25.02 (70.31 kg, 167.64 cm) cm10 14:02 Pain Scale: Adult cm10 MDM: 14:00 Medical Screening Exam initiated ms3 14:50 Differential diagnosis: contusion, fracture, sprain, strain. ms3 15:48 Data reviewed: vital signs, nurses notes, and as a result, I will discharge patient. ms3 Independent interpretation of the following test(s) in the Emergency Department X-Ray: My interpretation is Left elbow x-ray reviewed by me does not reveal fractures. Counseling: I had a detailed discussion with the patient and/or guardian regarding the historical points, exam findings, and any diagnostic results supporting the discharge/admit diagnosis, radiology results, the need for outpatient follow up, to return to the emergency department if symptoms worsen or persist or if there are any questions or concerns that arise at home. Special discussion: I discussed with the patient/guardian in detail that at this point there is no indication for admission to the hospital. It is understood, however, that if the symptoms persist or worsen the patient needs to return immediately for re-evaluation. ED course: Discussed x-ray findings with patient and her . Patient to follow-up with primary care physician 2 to 3 days. Patient understands and agrees with plan. All questions were answered. Return precautions discussed include worsening symptoms, or any other concerns.. 07/29 14:00 Order name: Elbow Left 3 View XRAY; Complete Time: 15:35 ms3 Administered Medications: No medications were administered Disposition Summary: 07/29/24 15:47 Discharge Ordered Notes: Location: Home ms3 Condition: Stable ms3 Diagnosis - Pain in left elbow ms3 Followup: ms3 - With: Frank Cardenas DO - When: 2 - 3 days - Reason: Recheck today's complaints Discharge Instructions: - Discharge Summary Sheet ms3 - Musculoskeletal Pain ms3 Forms: - Medication Reconciliation Form ms3 - Antibiotic Education ms3 - Prescription Opioid Use ms3 - Patient Portal Instructions ms3 - Leadership Thank You Letter ms3 Signatures: Dispatcher [employer] Jhon Wolf DO DO ms3 Cara Retana, RN RN cm10
--- NOTE | 2024-07-29 15:48 | ER ---
Nurse's Notes [facility] Name: Kelly Reddy Age: 63 yrs Sex: Female : 1960 Arrival Date: 07/29/2024 Time: 13:26 Bed 11 Private MD: Diagnosis: Pain in left elbow Presentation: 07/29 14:02 Chief complaint: Patient states: surgical wound to left elbow onset August. pt states cm10 that the wound was left open and she has been going to wound care to get the wound healed pt states that she fell and hit her left elbow and now the wound is open again. Coronavirus screen: Client denies travel out of the [place] in the last 14 days. Ebola Screen: Patient denies travel to an Ebola-affected area in the 21 days before illness onset. Initial Sepsis Screen: Does the patient meet any 2 criteria? No. Patient's initial sepsis screen is negative. Does the patient have a suspected source of infection? No. Patient's initial sepsis screen is negative. Risk Assessment: Do you want to hurt yourself or someone else? Patient reports no desire to harm self or others. Onset of symptoms was July 29, 2024. 14:02 Method Of Arrival: Wheelchair cm10 14:02 Acuity: JESSICA 4 cm10 Historical: - Allergies: 14:04 Iodine; cm10 - PMHx: 14:04 Bladder problem; Anemia; chronic back pain; Hypertension; spinal stenosis; Depressive cm10 disorder; Hypercholesterolemia; - PSHx: 14:04 tubal ligation; cm10 - Immunization history:: Adult Immunizations up to date. - Infectious Disease History:: Denies. - Social history:: Smoking status: Patient reports the use of cigarette tobacco products, smokes one pack cigarettes per day. Screenin:02 [facility] ED Fall Risk Assessment (Adult) History of falling in the last 3 months, ss including since admission No falls in past 3 months (0 pts) Confusion or Disorientation No (0 pts) Intoxicated or Sedated No (0 pts) Impaired Gait No (0 pts) Mobility Assist Device Used No (0 pt) Altered Elimination No (0 pt) Score/Fall Risk Level 0 - 2 = Low Risk Oriented to surroundings. Abuse screen: Denies threats or abuse. Denies injuries from another. Nutritional screening: No deficits noted. Tuberculosis screening: Never had TB. Assessment: 16:02 General: Appears in no apparent distress. comfortable, Behavior is calm, cooperative. ss Neuro: Level of Consciousness is awake, alert, obeys commands. Respiratory: Respiratory effort is even, unlabored, Respiratory pattern is regular, symmetrical. Derm: Skin is intact, is healthy with good turgor, Skin is pink, warm \T\ dry. normal. Vital Signs: 14:02 BP 101 / 76; Pulse 86; Resp 15; Temp 97.5(TE); Pulse Ox 98% on R/A; Weight 70.31 kg; cm10 Height 5 ft. 6 in. ; Pain 4/10; 14:02 Body Mass Index 25.02 (70.31 kg, 167.64 cm) cm10 14:02 Pain Scale: Adult cm10 ED Course: 13:30 Patient arrived in ED. sj2 13:34 Jhon Hutchins DO is Attending Physician. ms3 14:04 Triage completed. cm10 14:05 Arm band placed on right wrist. Patient placed in waiting room. cm10 15:11 Elbow Left 3 View XRAY In Process Unspecified. EDMS 15:34 Tiffany Fenton, RUTH is Primary Nurse. ss 15:47 Frank Cardenas DO is Referral Physician. ms3 16:02 Patient has correct armband on for positive identification. ss 16:02 No provider procedures requiring assistance completed. Patient did not have IV access ss during this emergency room visit. Administered Medications: No medications were administered Medication: 16:02 VIS not applicable for this client. ss Outcome: 15:47 Discharge ordered by MD. ms3 16:02 Discharged to home ambulatory, ss 16:02 Condition: good 16:02 Discharge instructions given to patient, Instructed on discharge instructions, follow up and referral plans. Demonstrated understanding of instructions, follow-up care, 16:05 Patient left the ED. ss Signatures: Dispatcher [employer] EDMS Tiffany Fenton RN RN ss Jhon Hutchins DO DO ms3 Cara Retana RN RN cm10 Niurka Curiel sj2
[2024-07-29 16:10] VITALS: BP 101/76; TEMP 97.5; O2SAT 98
== END 2024-07-29 16:05 | disposition home or self-care (01) ==
LOC: ER 13:26
DX: M25.522 Pain in left elbow (principal)
CPT/HCPCS: 99282

== ENCOUNTER → 2024-10-07 | Day surgery (SDC) | payer OTHER ==
[2024-10-03 11:56] LABS: Absolute Basophils 0.1 K/uL (0-0.5); Absolute Eosinophils 0.1 K/uL (0-0.5); Absolute Lymphocytes (CBC) 2.1 K/uL (0.7-4.9); Absolute Monocytes 0.6 K/uL (0.1-1.3); Absolute Neutrophil 7.3 K/uL (1.8-8.0); Basophils % 0.7 % (0-1.3); Eosinophils % 0.5 % (0-4.4); Hematocrit 37.8 % (36.0-45.0); Hemoglobin 12.9 g/dL (12.0-15.0); Lymphocytes % 21.1 % (15.3-44.8); MCH 30.6 pg (27.0-35.0); MCHC 34.1 g/dL (32.0-36.0); MCV 89.6 fL (80-100); MPV 8.1 fL (7.6-11.3); Monocytes % 5.5 % (3.3-12.3); Neutrophils % 72.2 % (41.7-73.7); Platelets 293 thou/uL (152-406); RBC Red Blood Cell Count 4.23 M/uL (3.86-4.86); Red Cell Distribution Width 13.2 % (12.1-15.2)
[2024-10-03 11:59] LABS: PT Prothrombin Time 11.5 SECONDS (9.4-12.5); PTT, Activated Partial Thromb 28.6 SECONDS (24.3-36.9); Protime INR 1.1
[2024-10-03 11:59] LABS: Specific Gravity 1.016 (1.005-1.030); Sqamous Epithelial <5 /HPF (None Seen); Urine Bacteria 20-50 /HPF (<20); Urine Bilirubin NEGATIVE (Negative); Urine Blood Negative (Negative); Urine Clarity Extremely Turbid (Clear); Urine Color Light-Yellow (Yellow); Urine Culture Reflex Order NOT NEEDED; Urine Glucose NEGATIVE (Negative); Urine Ketones NEGATIVE (Negative); Urine Microscopic Reflex YN ORDER UMIC; Urine Mucus 4+ /HPF (None Seen); Urine Nitrite 1+ (Negative); Urine Protein NEGATIVE (Negative); Urine RBC None Seen /HPF (None Seen); Urine Urobilinogen Normal (Normal)
[2024-10-03 12:11] LABS: Albumin 3.7 g/dL (3.4-5.0); Albumin/Globulin Ratio 0.8 (1.1-1.8); Anion Gap 8.7 mEq/L (5.0-15.0); Bilirubin Total 0.5 mg/dL (0.2-1.0); Globulin 4.5 g/dL (2.3-3.5); Potassium 3.7 mEq/L (3.5-5.1); Protein, Total 8.2 g/dL (6.4-8.2)
--- NOTE | 2024-10-03 14:15 | RAD REPORT ---
EXAMINATION: TWO VIEW CHEST XR CLINICAL INDICATION: Female, 64 years [address] [facility] MAIN pre op for day surgery. Hypertension TECHNIQUE: 2 view radiographs of the chest were performed. COMPARISON: 08/05/2024 FINDINGS: The lungs are well inflated and clear of new opacities. Hyperlucency and peripheral predominant chron ic interstitial thickening, stable. No pneumothorax or sizable effusion. The heart is normal in size. Mediastinal contours are unremarkable. IMPRESSION: No acute or significant abnormalities. Stable interstitial or fibrotic changes as above.
[~2024-10-07] MED LIST: DIPHENHYDRAMINE 50 MG/ML VIAL IV PRN; DOCUSATE NA 100 MG CAP PO PRN; EPHEDRINE SULF 50 MG/ML VIAL ONE; FENTANYL CITR 100 MCG/2 ML ONE; GLYCOPYRROLATE 0.2 MG/ML SYR ONE; METOCLOPRAMIDE 10 MG/2mL INJ IV PRN; MIDAZOLAM HCL 2 MG/2 ML INJ ONE; NALOXONE 0.4 MG/ML VIAL IV PRN; ONDANSETRON 4 MG/2 ML VIAL IV PRN; ONDANSETRON 4 MG/2 ML VIAL ONE; Phenylephrine HCl 10 MG/ML 1 ML VIAL ONE; dexAMETHasone 4 MG/ML VIAL ONE; propofoL 200 MG/20 ML VIAL IV ONE
[2024-10-07] MEDS: Oxycodone HCl/Acetaminophen 5/325 MG TAB ONE (07:28)
[2024-10-07] MEDS: EPINEPHRINE 1 MG/ML VIAL ONE (07:30)
[2024-10-07] MEDS: MORPHINE SULFATE/PF 1 MG/ML (10 ML AMP) ONE (07:31)
[2024-10-07] MEDS: DEXMEDETOMIDINE HCL 200 MCG/2 ML VIAL ONE (07:31)
[2024-10-07] MEDS: MAGNESIUM SULFATE 1 gm IVPB 0 GM/0 ML BAG IV ONE (07:31)
[2024-10-07] MEDS: NA CHLORIDE 0.9% 100 ML ONE (07:32)
[2024-10-07] MEDS: Ringers Lactate 1,000 ML IV ONE ×3 (08:00→13:17)
[2024-10-07] MEDS: GABAPENTIN 100 MG CAP ONE (08:06)
[2024-10-07] MEDS: CELECOXIB 100 MG CAPSULE ONE (08:06)
[2024-10-07] MEDS: ACETAMINOPHEN 500 MG TAB ONE (08:06)
[2024-10-07] MEDS: CEFAZOLIN SODIUM 2 GM/VIAL ONE (08:39)
[2024-10-07] MEDS: TRANEXAMIC ACID 1,000 MG/10 ML VIAL IV ONE (09:29)
--- NOTE | 2024-10-07 11:00 | RAD REPORT ---
Exam:Hip Right 1 View HISTORY: Right hip surgery FINDINGS: Intraoperative film demonstrates placement of a right hip prosthesis. No fracture
--- NOTE | 2024-10-07 11:16 | P.BOP ---
Preoperative diagnosis: right hip severe arthritis Postoperative diagnosis: same Primary procedure: right total hip arthoplasty Estimated blood loss: 150 ccs Anesthesia: General Transferred to: Recovery Room Condition: Good
[2024-10-07 12:06] LABS: Hematocrit 25.4 % (36.0-45.0)
[2024-10-07] MEDS: EPHEDRINE SULF 50 MG/ML VIAL ONE (13:12)
--- NOTE | 2024-10-07 13:41 | OP ---
Date of Procedure: 10/07/2024 Surgeon: Chapito Leary MD Preoperative Diagnosis: Severe arthritic destruction of the right hip. Postoperative Diagnosis: Severe arthritic destruction of the right hip. Procedure: Right total hip arthroplasty using the Orange system. Estimated Blood Loss: 150 cc. Complications: There were no complications. Indications For Operation: Ms. Reddy is a patient who is 64 years old, who is nearly debilitated giv en medical issues, but 1 of her major problems is severe destruction of the right hip. She does have other causes for debilitation. However, this hip is extremely painful and limits her activities of daily living. The risks, benefits, and alternatives of different methods of treating this were discu ssed with her and she does have medical clearance for the procedure. She understands things as prese nted and wishes to proceed. Description Of Procedure: The patient was taken to the operating room, placed in supine position. A fter spinal anesthesia was obtained, the patient was then rolled left side down with an axillary roll with all of her bony prominences being checked and well positioned using hip positioners. After thi s, the right lower extremity was then prepped and draped in usual sterile fashion for the procedure. Following this, a standard posterior lateral incision was taken down carefully through skin and soft tissues. Meticulous hemostasis being maintained using Bovie electrocautery. This leads down to the fascia. A small stab wound was made in the fascia and gluteal tendon was palpated to ensure correct level. This was then brought more superior. She does have a relative paucity of gluteal musculatur e, but as these were encountered then curved gently backward and spread in line with the fibers. Aft er this, the sciatic nerve was palpated and it was noted that the bursa is extremely thickened and so mewhat tough. A fairly significant amount of bursal tissue was removed to allow for better visualiza tion of the hip. After this, the external rotators and capsule were then taken down carefully and ta gged for later repair. A Charnley being placed to retract the fascia after the sciatic nerve was pro tected. After this, the head was seen and the hip was dislocated. The head itself was essentially d evoid of any cartilage and multiple osteophytes are present both at the head of the neck. The neck o steophytes were removed using a rongeur and the neck was cut in standard fashion. The head was then sized using ring gauges. Attention was then turned to the acetabulum which was somewhat misshapen an d definitely worn. The labral structures were somewhat tacked down to the surrounding tissue. Howev er, care was used to remove the labral structures using a combination of rongeur, curved osteotome, a nd the acetabulum was then visualized. The acetabular retractors were carefully placed and it was th en reamed up to the appropriate diameter with good bleeding bone throughout. After this, the cup was then placed and proceeded to best position and appeared to be extremely solid. Attention was then t urned back to the femur where a spinner box was used to lateralize as well as canal-finding reamer. I t was sewn sequentially. Broached to a size 5. X-rays taken at this point reveals that the cup appe ars to be appropriate. There is a possibility of being able to place 1 larger size stem, however, do es appear to have good contact and I think that if we tried to place a 6 given the feel of the 5, we may end up breaking the femur. Therefore, decision was made to continue with the 5 as it does feel e xtremely tight when placed appropriately. After this, the liner was placed in the acetabulum and the final stem being a 5 was then placed. It was then trialed with most minus head and relocate easily. There was no Shuck with full flexion and interval internal rotation to about 30 degrees it begins t o dislocate. Given the patient's lower mobility status, it was felt that more security with this wou ld be desirable. Therefore, the next longer size was selected. This also relocated fairly easily, b ut now is much more stable with full flexion and internal rotation to about 45 degrees before signs o f dislocation. This was selected as the final. The trial ball was removed. The wound was copiously irrigated. The final ball was then placed and relocated. It was found to be stable in the above pa rameters. After this was again irrigated and the external rotators and capsule were then repaired ba ck to the greater trochanter via bone tunnels. After this, the fascia was then closed in a watertigh t fashion using heavy Vicryl sutures. It was again irrigated. The skin was then closed using interr upted Vicryl sutures followed by mason. The patient was then placed in Aquacel dressing, awakened, and taken to recover y room in good condition. JUAN F Voice ID: [id number] Report ID: [id number]
[2024-10-07 14:41] VITALS: BMI 25.0
--- NOTE | 2024-10-07 16:21 | P.CNS ---
Date of Consult: 10/07/24 Reason for Consult: Medical management Requesting Physician: Chapito Leary Chief Complaint: Right total hip arthroplasty History of Present Illness: Patient is a 64-year-old female to the hospital right total hip arthroplasty. P magalie has a history of osteoarthritis. Patient has had a history of scoliosis as well as spinal stenosis. She has had difficulty ambulating because of right hip osteoarthritis. She was seen by Dr. Leary and scheduled for hip replacement. However, surgery was prolonged because she required IV antibiotics for a infection. She says she has been seeing Dr. Leary for a couple years and she was supposed to have surgery scheduled about a year ago but she developed an infection and he wanted to wait until the infection had resolved. Patient had MRSA of the right elbow which is treated. However patient still has an open wound. Otherwise, patient did drop her hemoglobin after surgery. Repeat hemoglobin is stable. Will continue monitoring her on the general medical floor. At this point we will get physical therapy involved in may be prepare her for inpatient rehab. Allergies iodine Allergy (Verified 10/03/24 11:03) hives,itch Home Medications: ALPRAZolam [Alprazolam] 0.5 mg PO BID 10/03/24 ARIPiprazole [Aripiprazole] 2 mg PO DAILY 10/03/24 Aspirin [Aspirin Regimen] 81 mg PO DAILY 10/03/24 Buprenorphine HCl/Naloxone HCl [Buprenorphin-Naloxon 8-2 mg Sl] 1 each SL BID 10/03/24 Calcium Carbonate/Vitamin D3 [Calcium 250-D Tablet] 1 tab PO DAILY 10/03/24 Cholecalciferol (Vitamin D3) [Vitamin D3] 125 mcg PO DAILY 10/03/24 Cyanocobalamin (Vitamin B-12) [Vitamin B12] 1,000 mcg PO DAILY 10/03/24 Ferrous Sulfate 325 mg PO SEECOM 10/03/24 Fluoxetine HCl [Prozac] 40 mg PO DAILY 10/03/24 Folic Acid 1 mg PO DAILY 10/03/24 Ibuprofen [Advil] 200 mg PO TID PRN 10/03/24 Simvastatin 20 mg PO BEDTIME 10/03/24 - Past Medical/Surgical History Diabetic: No -: HLD -: Spinal Stenosis -: Scoliosis -: CVA -: depression -: anxiety -: OCD -: Prolapsed bladder -: left knee replacement -: R Hip replacement -: L Elbow- osteo - Family History Mother Medical History: Heart disease - Social History Smoking Status: Current every day smoker Alcohol use: No CD- Drugs: No Caffeine use: Yes Place of Residence: Home Review of Systems 10-point ROS is otherwise unremarkable Physical Examination Temp Pulse Resp BP Pulse Ox 97.8 F 72 16 101/65 10/07/24 13:34 10/07/24 13:34 10/07/24 13:34 10/07/24 13:34 General: Alert, In no apparent distress, Oriented x3 HEENT: Atraumatic, PERRLA, Mucous membr. moist/pink, EOMI, Sclerae nonicteric Neck: Supple, 2+ carotid pulse no bruit, No LAD, Without JVD or thyroid abnormality Respiratory: Clear to auscultation bilaterally, Normal air movement Cardiovascular: Regular rate/rhythm, Normal S1 S2, No murmurs Gastrointestinal: Normal bowel sounds, Soft and benign, Non-distended, No tenderness Musculoskeletal: Other (Pain on range of motion of the right leg) Integumentary: Other (Open wound that is clean on the left elbow) Neurological: Normal speech, Normal tone, Sensation intact, Cranial nerves 3-12 intact, Normal affect, Abnormal gait Lymphatics: No axilla or inguinal lymphadenopathy Laboratory Data (last 24 hrs) 10/07/24 11:42 Hgb 9.0 L Hct 25.4 L - Problems (1) Status post total hip replacement, right Current Visit: Yes Status: Acute (2) History of CVA (cerebrovascular accident) Current Visit: Yes Status: Acute (3) MRSA cellulitis Current Visit: Yes Status: Acute (4) Depression Current Visit: No Status: Acute (5) Spinal stenosis Current Visit: No Status: Acute Conclusions/ Impression: Jr Critical Care: No Time Spent Managing Pts care (In Minutes): 45
[2024-10-07 17:12] LABS: Hematocrit 25.9 % (36.0-45.0); Hemoglobin 8.8 g/dL (12.0-15.0)
[2024-10-07] MEDS: CEFAZOLIN 1 GM in NA CHLORIDE 0.9% 50 ML IVPB SCH (17:13)
[2024-10-07] MEDS: HYDROCODONE/APAP 7.5/325 MG TAB PO PRN (21:44)
[2024-10-08 07:04] LABS: Hematocrit 23.5 % (36.0-45.0); Hemoglobin 7.9 g/dL (12.0-15.0)
[2024-10-08] MEDS: ENOXAPARIN 40 MG/0.4 ML SQ SCH (08:54)
[2024-10-08] MEDS: NA CHLORIDE 0.9% 500 ML IV ONE (09:06)
[2024-10-08] MEDS: NA CHLORIDE 0.9% 500 ML ONE (10:19)
[2024-10-08 18:22] LABS: Hematocrit 33.8 % (36.0-45.0); Hemoglobin 11.4 g/dL (12.0-15.0)
[2024-10-08 19:33] VITALS: BP 87/64; TEMP 98
[2024-10-08] MEDS: ALPRAZOLAM 0.5 MG TABLET PO ONE (21:32)
[2024-10-08 22:00] VITALS: O2SAT 93
== END ==
LOC: OR 06:50 → 4TH 11:05
PROVIDERS: ATTEND Orthopaedic Surgery
PROC: 0SR90JA Replacement of Right Hip Joint with Synthetic Substitute, Uncemented, Open Approach (ICD-10-PCS; principal; 2024-10-07 08:30)
DX: M16.11 Unilateral primary osteoarthritis, right hip (principal); M41.9 Scoliosis, unspecified; M48.00 Spinal stenosis, site unspecified; F17.210 Nicotine dependence, cigarettes, uncomplicated
CPT/HCPCS: 85025; 81001; 36415 ×2; 86900; 86850; 85610; 86901; 88305; 88311; 85730; 85018 ×2; 85014 ×2; 80053; 71046; 73501; 97116; 97161; 97530; 27130; C1776 ×3; J2704; J1100; J2371; J2250; J3010; J0171; J2405; J7120 ×3; J0690 ×2; 86920; 88304; J3475

== ENCOUNTER 2024-11-24 06:42 | Emergency (ER) | payer OTHER ==
[2024-11-24] MEDS ORDERED: NA CHLORIDE 0.9% 1,000 ML ONE (07:07)
[2024-11-24 07:24] LABS: Absolute Basophils 0.1 K/uL (0-0.5); Absolute Eosinophils 0.1 K/uL (0-0.5); Absolute Lymphocytes (CBC) 1.3 K/uL (0.7-4.9); Absolute Monocytes 0.9 K/uL (0.1-1.3); Absolute Neutrophil 7.7 K/uL (1.8-8.0); Basophils % 0.7 % (0-1.3); Eosinophils % 0.8 % (0-4.4); Hematocrit 35.9 % (36.0-45.0); Hemoglobin 12.2 g/dL (12.0-15.0); Lymphocytes % 13.3 % (15.3-44.8); MCHC 34.1 g/dL (32.0-36.0); MCV 87.9 fL (80-100); MPV 7.9 fL (7.6-11.3); Monocytes % 8.9 % (3.3-12.3); Neutrophils % 76.3 % (41.7-73.7); Nucleated Red Blood Cells % 0.2 % (0-0); Platelets 288 thou/uL (152-406); RBC Red Blood Cell Count 4.08 M/uL (3.86-4.86); Red Cell Distribution Width 13.2 % (12.1-15.2)
--- NOTE | 2024-11-24 07:24 | RAD REPORT ---
EXAMINATION: CT HEAD WITHOUT CONTRAST CT CERVICAL SPINE WITHOUT CONTRAST CLINICAL INDICATION: Head and neck injury status post fall. Head and neck pain TECHNIQUE: Axial CT images from the skull base to the vertex without intravenous contrast. Axial CT i mages through the cervical spine were obtained without intravenous contrast. Sagittal and coronal reformatted images were created from the data set. Coronal and sagittal reformatted images were creat ed from the data set. One or more of the following dose reduction techniques were used: Automated exposure control, adjustment of the mA and/or kV according to patient size, and/or iterative reconstr uction. Unless otherwise specified, incidental findings do not require dedicated imaging follow-up. [id number]. Comparison: Cervical spine 2020 MRI FINDINGS: An intracranial bleed is not seen. Ventricles are normal in caliber. No significant hypodensity within the brain No extra-axial fluid collection. No fluid within the sinuses/mastoids No fracture or dislocation is seen involving the cervical spine. Mild anterior subluxation C3 on C4 and C4 on C5. This is chronic. IMPRESSION: No acute intracranial abnormality noted A cervical fracture is not seen. If the patient continues to have symptoms to suggest acute HELP DESK ANALYST/spinal pathology then MRI would be rec ommended
[2024-11-24 07:28] LABS: PT Prothrombin Time 12.8 SECONDS (10-13.0); Protime INR 1.13
[2024-11-24 07:40] LABS: Albumin 3.2 g/dL (3.4-5.0); Albumin/Globulin Ratio 0.8 (1.1-1.8); Anion Gap 8.5 mEq/L (5.0-15.0); Bilirubin Total 0.7 mg/dL (0.2-1.0); Globulin 4.1 g/dL (2.3-3.5); Potassium 3.5 mEq/L (3.5-5.1); Protein, Total 7.3 g/dL (6.4-8.2); Troponin High Sensitivity 5.2 pg/mL (<58.9)
--- NOTE | 2024-11-24 07:59 | RAD REPORT ---
Procedure: Chest Single View HISTORY: Cough COMPARISON: September 2024 FINDINGS: The lungs appear clear of acute infiltrate. COPD and chronic interstitial lung opacities are present. No significant pleural effusion noted. The heart is mildly enlarged. IMPRESSION: No acute abnormality is displayed.
--- NOTE | 2024-11-24 08:02 | RAD REPORT ---
Exam:Pelvis CLINICAL HISTORY: Pelvic pain FINDINGS: Superior-lateral dislocation right femoral prosthesis. Right acetabular prosthesis has a more horizontal orientation than usually seen. No fracture visualized
--- NOTE | 2024-11-24 08:03 | RAD REPORT ---
Exam:Hip Right 2 View HISTORY: Right hip pain FINDINGS: Superior-lateral dislocation right femoral prosthesis. Right acetabular prosthesis has a more horizontal orientation than usually seen. No fracture visualized
[2024-11-24] MEDS ORDERED: ONDANSETRON 4 MG/2 ML VIAL ONE (08:22)
[2024-11-24] MEDS ORDERED: FENTANYL CITR 100 MCG/2 ML ONE ×2 (08:22→08:38)
[2024-11-24 08:30] LABS: Specific Gravity 1.014 (1.005-1.030); Sqamous Epithelial <5 /HPF (None Seen); Urine Bacteria None Seen /HPF (<20); Urine Bilirubin NEGATIVE (Negative); Urine Blood Negative (Negative); Urine Clarity Clear (Clear); Urine Color Light-Yellow (Yellow); Urine Culture Reflex Order NOT NEEDED; Urine Glucose NEGATIVE (Negative); Urine Ketones NEGATIVE (Negative); Urine Microscopic Reflex YN ORDER UMIC; Urine Mucus Slight /HPF (None Seen); Urine Nitrite NEGATIVE (Negative); Urine Protein NEGATIVE (Negative); Urine RBC None Seen /HPF (None Seen); Urine Urobilinogen Normal (Normal); Urine WBC <5 /HPF (<5)
[2024-11-24] MEDS ORDERED: propofoL 1,000 MG/100 ML VIAL IV ONE (08:38)
--- NOTE | 2024-11-24 09:50 | RAD REPORT ---
Exam:Hip Right 2 View HISTORY: Right hip pain FINDINGS: The previously described dislocation has been reduced. No fracture seen
--- NOTE | 2024-11-24 10:20 | EDPHYS ---
Physician Documentation [facility] Name: Kelly Reddy Age: 64 yrs Sex: Female : 1960 Arrival Date: 11/24/2024 Time: 06:42 Bed 4 Private MD: ED Physician Stoney Granger HPI: 11/24 06:49 This 64 yrs old Female presents to ER via Unassigned with complaints of Fall anh Injury. 06:49 Details of fall: The patient fell from seated position, out of a chair. Onset: The anh symptoms/episode began/occurred this morning, today. Associated injuries: The patient sustained left hip, decreased range of motion, painful injury, swelling. Severity of symptoms: At their worst the symptoms were moderate, in the emergency department the symptoms are unchanged. The patient has not experienced similar symptoms in the past. 06:52 Associated injuries: The patient sustained right leg. anh Historical: - Allergies: 06:58 Iodine; al5 - PMHx: 06:58 Anemia; Bladder problem; chronic back pain; depressive disorder; Hypercholesterolemia; al5 Hypertension; spinal stenosis; - PSHx: 06:58 tubal ligation; hip replacement (tubal ligation); al5 - Immunization history:: Adult Immunizations up to date, Last tetanus immunization: up to date. - Infectious Disease History:: Denies. - Family history:: not pertinent. - Social history:: Smoking status: Patient reports the use of cigarette tobacco products, smokes one pack cigarettes per day. ROS: 06:50 Constitutional: Negative for fever, chills, and weight loss, Eyes: Negative for injury, anh pain, redness, and discharge, ENT: Negative for injury, pain, and discharge, Neck: Negative for injury, pain, and swelling, Cardiovascular: Negative for chest pain, palpitations, and edema, Respiratory: Negative for shortness of breath, cough, wheezing, and pleuritic chest pain, Abdomen/GI: Negative for abdominal pain, nausea, vomiting, diarrhea, and constipation, Back: Negative for injury and pain, : Negative for injury, bleeding, discharge, and swelling, Skin: Negative for injury, rash, and discoloration, Neuro: Negative for headache, weakness, numbness, tingling, and seizure, Psych: Negative for depression, anxiety, suicide ideation, homicidal ideation, and hallucinations, Allergy/Immunology: Negative for hives, rash, and allergies, Endocrine: Negative for neck swelling, polydipsia, polyuria, polyphagia, and marked weight changes, Hematologic/Lymphatic: Negative for swollen nodes, abnormal bleeding, and unusual bruising, 06:50 MS/extremity: Positive for decreased range of motion, pain, swelling, of the left hip and left upper thigh, Exam: 06:50 Constitutional: This is a well developed, well nourished patient who is awake, alert, anh and in no acute distress. Head/Face: Normocephalic, atraumatic. Eyes: Pupils equal round and reactive to light, extra-ocular motions intact. Lids and lashes normal. Conjunctiva and sclera are non-icteric and not injected. Cornea within normal limits. Periorbital areas with no swelling, redness, or edema. ENT: Nares patent. No nasal discharge, no septal abnormalities noted. Tympanic membranes are normal and external auditory canals are clear. Oropharynx with no redness, swelling, or masses, exudates, or evidence of obstruction, uvula midline. Mucous membranes moist. Neck: Trachea midline, no thyromegaly or masses palpated, and no cervical lymphadenopathy. Supple, full range of motion without nuchal rigidity, or vertebral point tenderness. No Meningismus. Chest/axilla: Normal chest wall appearance and motion. Nontender with no deformity. No lesions are appreciated. Cardiovascular: Regular rate and rhythm with a normal S1 and S2. No gallops, murmurs, or rubs. Normal PMI, no JVD. No pulse deficits. Respiratory: Lungs have equal breath sounds bilaterally, clear to auscultation and percussion. No rales, rhonchi or wheezes noted. No increased work of breathing, no retractions or nasal flaring. Abdomen/GI: Soft, non-tender, with normal bowel sounds. No distension or tympany. No guarding or rebound. No evidence of tenderness throughout. Back: No spinal tenderness. No costovertebral tenderness. Full range of motion. Skin: Warm, dry with normal turgor. Normal color with no rashes, no lesions, and no evidence of cellulitis. Neuro: Awake and alert, GCS 15, oriented to person, place, time, and situation. Cranial nerves II-XII grossly intact. Motor strength 5/5 in all extremities. Sensory grossly intact. Cerebellar exam normal. Normal gait. Psych: Awake, alert, with orientation to person, place and time. Behavior, mood, and affect are within normal limits. 06:50 Musculoskeletal/extremity: ROM: full active range of motion, full passive range of motion, limited active range of motion due to pain, limited passive range of motion due to pain, in the left upper thigh, DVT Exam: pain, swelling, tenderness, of the left leg, of the right leg, 06:59 ECG was reviewed by the Attending Physician. anh Vital Signs: 06:57 BP 91 / 64; Pulse 92; Resp 18; Temp 97.8; Pulse Ox 99% on R/A; Weight 70.31 kg; Height al5 5 ft. 6 in. ; Pain 5/10; 07:16 BP 101 / 85; Pulse 84; Resp 15; Pulse Ox 99% ; Pain 5/10; jl7 09:00 BP 108 / 76; Pulse 76; Resp 15; Pulse Ox 95% ; jl7 10:38 BP 109 / 71; Pulse 82; Resp 15; Pulse Ox 95% on R/A; jl7 06:57 Body Mass Index 25.02 (70.31 kg, 167.64 cm) al5 06:57 Pain Scale: Adult al5 07:16 Pain Scale: Adult jl7 Rosie Coma Score: 07:05 Eye Response: spontaneous(4). Motor Response: obeys commands(6). Verbal Response: al5 oriented(5). Total: 15. Trauma Score (Adult): 07:05 Eye Response: spontaneous(1); Verbal Response: oriented(1); Motor Response: obeys al5 commands(2); Systolic BP: > 89 mm Hg(4); Respiratory Rate: 10 to 29 per min(4); [place] Score: 15; Trauma Score: 12 Procedures: 09:36 Reduction: of the right hip, using traction, manipulation, Traction, Patient tolerated rn well. Post reduction film - reveals normal alignment. Procedural sedation: Pre-procedure assessment: the patient has been NPO 8 hour(s) prior to arrival, ASA physical classification: II - mild/mod systemic disease that does not interfere with daily routines, Airway assessment: able to hyperextend neck, able to maintain airway, can open mouth without difficulty, Mallampati classification of tongue size: Monitoring during procedure: foundry molder, continuous pulse oximetry, nurse at bedside at all times, Medications employed: propofol 100mg, Alternatives to procedural sedation discussed Post-procedure assessment: the patient is mildly sedated, Respiratory status: even and unlabored, a reversal agent was not used, Start time 0900, stop time 0905. MDM: 06:46 Medical Screening Exam initiated anh 06:53 Differential diagnosis: abrasion, closed head injury, contusion, fracture, multiple anh trauma, sprain, strain. Data reviewed: vital signs, nurses notes, lab test result(s), EKG, radiologic studies, plain films. Consideration of Admission/Observation Escalation of care including admission/observation considered. I considered the following discharge prescriptions or medication management in the emergency department Medications were administered in the Emergency Department. See MAR. Independent interpretation of the following test(s) in the Emergency Department X-Ray: My interpretation is right hip. Historians other than the Patient: EMS: ems well informed. Care significantly affected by the following chronic conditions: Chronic Obstructive Pulmonary Disease, Obesity, right hip replaced 10/05/24 kedar. 08:42 ED course: Consulted with Dr. Leary, especially since surgery is only 5 weeks out. rn He states is safe to reduce here in ER. Patient consented and family aware.. 10:19 ED course: Patient feels much better, able to move right leg better. No other acute rn findings and workup. Spoke with patient and she states that she fell asleep on the toilet and fell. Patient is on multiple medications and states "tends to fall asleep easily". Recommended watching her medication dosing and making sure she is not taking too much medication. Right hip successfully reduced. Will discharge with Ortho follow-up and given return precautions. Patient is awake and alert and tolerating p.o.. 11/24 06:49 Order name: CBC with Diff; Complete Time: 07:42 anh 11/24 06:49 Order name: Comprehensive Metabolic Panel; Complete Time: 07:42 anh 11/24 06:49 Order name: Troponin High Sensitivity; Complete Time: 07:42 anh 11/24 06:49 Order name: PT-INR; Complete Time: 07:42 anh 11/24 08:13 Order name: Urinalysis w/ reflexes; Complete Time: 08:35 db 11/24 06:49 Order name: Chest Single View XRAY; Complete Time: 08:03 anh 11/24 06:49 Order name: Pelvis XRAY; Complete Time: 08:03 anh 11/24 06:49 Order name: Hip Right 2 View XRAY; Complete Time: 08:03 [facility] 11/24 06:49 Order name: CT Head C Spine; Complete Time: 07:42 [facility] 11/24 09:32 Order name: Hip Right 2 View; Complete Time: 09:51 EDMS 11/24 06:49 Order name: EKG - Nurse/Tech; Complete Time: 06:59 [facility] EC:59 Rate is 88 beats/min. Rhythm is regular. QRS [place] is Normal. AL interval is normal. QRS anh interval is normal. QT interval is normal. No Q waves. T waves are Normal. No ST changes noted. Clinical impression: Normal ECG and No evidence of ischemia. Interpreted by me. Reviewed by me. Administered Medications: 08:06 CANCELLED (Duplicate Order): ns 0.9% 500 ml 500 ml IV at 1 bolus once; to be given as a rn bolus over 30 minutes 08:20 Drug: NS 0.9% IV 500 ml 500 ml IV at 1 bolus once; to be given as a bolus over 30 ss minutes Volume: 500 ml; Route: IV; Rate: 1 bolus; Site: left forearm; 09:00 Follow up: Response: No adverse reaction; IV Status: Completed infusion; IV Intake: jl7 500ml 08:20 Drug: NS 0.9% IV 500 ml IV at 100 ml/hr once Route: IV; Rate: 100 ml/hr; Site: left ss forearm; 10:00 Follow up: IV Status: Completed infusion 08:30 Drug: fentaNYL (PF) IVP 50 mcg IVP once Route: IVP; Site: left forearm; 09:00 Follow up: Response: No adverse reaction; Pain is decreased; RASS: Drowsy (-1) 08:30 Drug: Ondansetron IVP 4 mg IVP once; over 2 minutes Route: IVP; Site: left forearm; 09:00 Follow up: Response: No adverse reaction 09:00 Drug: Propofol IVP 100 mg IVP once; Document RASS score. Route: IVP; Site: left forearm; 09:00 Follow up: Response: RASS: Drowsy (-1) 09:05 Follow up: Response: No adverse reaction; RASS: Moderate sedation (-3) jl7 09:10 Follow up: Response: RASS: Light sedation (-2) jl7 10:10 Not Given (Physician Discretion): fentanyl (pf)50 mcg IVP once jl7 Disposition Summary: 11/24/24 10:20 Discharge Ordered Notes: Location: Home rn Problem: new rn Symptoms: have improved rn Condition: Stable rn Diagnosis - Dislocation of internal right hip prosthesis rn Followup: rn - With: Chapito Leary MD - When: As needed - Reason: Recheck today's complaints, Re-evaluation by your physician Discharge Instructions: - Discharge Summary Sheet rn - Hip Dislocation rn Forms: - Medication Reconciliation Form rn - Antibiotic r d internship - Prescription Opioid Use rn - Patient Portal Instructions rn - Leadership Thank You Letter rn Signatures: Dispatcher [employer] EDMS Ryan Fuller MD MD cha Nieto, Roman, MD MD rn Blanchard, Shelby, RN RN Sayda Altman RN RN jl7 Hiwot Deshpande RN RN al5 Corrections: (The following items were deleted from the chart) 06:50 06:50 Pelvis+RAD.RAD.BRZ ordered. EDMS EDMS 06:50 06:50 Hip Right 2 View+RAD.RAD.BRZ ordered. EDMS EDMS 06:50 06:50 Head C Spine MPR Wo Con+CT.RAD.BRZ ordered. EDMS EDMS 08:06 08:06 NS 0.9% IV 500 ml 500 ml IV at 1 bolus once; to be given as a bolus over 30 rn minutes ordered. rn 08:13 08:13 Urinalysis+U.LAB.BRZ ordered. EDMS EDMS 09:31 09:08 Hip Left 2 View+RAD.RAD.BRZ ordered. EDMS EDMS
--- NOTE | 2024-11-24 10:20 | ER ---
Nurse's Notes [facility] Name: Kelly Reddy Age: 64 yrs Sex: Female : 1960 Arrival Date: 11/24/2024 Time: 06:42 Bed 4 Private MD: Diagnosis: Dislocation of internal right hip prosthesis Presentation: 11/24 06:49 Chief complaint: Patient states: was using the restroom, dozed off, and fell from al5 toilet. hit forehead, hip, and R knee. patient c/o R hip pain and R knee pain. Care prior to arrival: None. Mechanism of Injury: Fall out of chair. Trauma event details: Injury occurred in the [facility], Injury occurred: at home. Injury occurred: November 24, 2024. 06:49 Acuity: JESSICA 3 al5 06:49 Method Of Arrival: EMS: [facility] wy5 06:57 Coronavirus screen: At this time, the client does not indicate any symptoms associated al5 with coronavirus-19. Ebola Screen: No symptoms or risks identified at this time. Initial Sepsis Screen: Does the patient meet any 2 criteria? HR > 90 bpm. No. Patient's initial sepsis screen is negative. Does the patient have a suspected source of infection? No. Patient's initial sepsis screen is negative. Risk Assessment: Do you want to hurt yourself or someone else? Patient reports no desire to harm self or others. 07:06 Onset of symptoms was November 24, 2024. al5 Triage Assessment: 07:04 General: see trauma assessment. al5 Trauma Activation: Physician: ED Physician; Name: ; Notified At: ; Arrived At: Physician: General Surgeon; Name: ; Notified At: ; Arrived At: Physician: Radiology; Name: ; Notified At: ; Arrived At: Physician: Respiratory; Name: ; Notified At: ; Arrived At: Physician: Lab; Name: ; Notified At: ; Arrived At: 06:49 n/a al5 Historical: - Allergies: 06:58 Iodine; al5 - PMHx: 06:58 Anemia; Bladder problem; chronic back pain; depressive disorder; Hypercholesterolemia; al5 Hypertension; spinal stenosis; - PSHx: 06:58 tubal ligation; hip replacement (tubal ligation); al5 - Immunization history:: Adult Immunizations up to date, Last tetanus immunization: up to date. - Infectious Disease History:: Denies. - Family history:: not pertinent. - Social history:: Smoking status: Patient reports the use of cigarette tobacco products, smokes one pack cigarettes per day. Screenin:56 Abuse screen: Denies threats or abuse. Denies injuries from another. Nutritional al5 screening: No deficits noted. Tuberculosis screening: No symptoms or risk factors identified. Fall risk At risk due to injury, immobility, deformity, prior history of falls. 07:05 [facility] ED Fall Risk Assessment (Adult) History of falling in the last 3 months, al5 including since admission Yes- single mechanical fall (1 pt) Confusion or Disorientation No (0 pts) Intoxicated or Sedated No (0 pts) Impaired Gait Yes (1 pt) Mobility Assist Device Used Yes (1 pt) Altered Elimination No (0 pt) Score/Fall Risk Level 3 or more points = High Risk Oriented to surroundings, Maintained a safe environment, Hourly rounding (assess needs \T\ fall precautionary measures) done. Primary Survey: 06:53 NO uncontrolled hemorrhage observed. A: The client is alert. Airway: patent, Oxygen via al5 nasal cannula at 3 liters per minute. Breathing/Chest: Respiratory effort: spontaneous, unlabored, Respiratory pattern: regular. Circulation: Hemorrhage: No external hemorrhage noted. Skin color: pink, Skin temperature: warm, dry. Disability Pupils are equal, round, reactive to light and accommodation. Client is alert. Exposure/Environment: All clothing and personal items were removed. Forensic evidence collection is not deemed to be indicated at this time. Items placed in patient belonging bag. There is no evidence of uncontrolled external bleeding. Obvious injury(ies) are noted at this time: shortening and rotation of R leg, contusion to forehead R side A warming method has been applied: A warm blanket has been provided to the patient. 07:00 Reassessment Breathing: Spontaneous respiratory effort, equal unlabored respirations, jl7 breath sounds clear bilaterally, regular pattern with symmetrical chest rise and fall. Secondary Survey: 06:55 HEENT: Head No injury/deformity Other contusion to R side forehead Face Other contusion al5 to R side forehead Eyes: No injury or deformity noted. Ears: clear Nose: clear Throat: No injury or deformity noted. Gastrointestinal: No deficits noted. Abdomen is soft, flat. : No signs and/or symptoms were reported regarding the genitourinary system. Musculoskeletal: shortening and rotation of the R leg. Assessment: 06:51 General: Appears in no apparent distress. uncomfortable, Behavior is calm, cooperative. al5 Pain: Complains of pain in right hip Pain currently is 5 out of 10 on a pain scale. Neuro: Level of Consciousness is awake, alert, obeys commands, Oriented to person, place, time, situation. EENT: No signs and/or symptoms were reported regarding the EENT system. Cardiovascular: Capillary refill < 3 seconds Patient's skin is warm and dry. Respiratory: Airway is patent Respiratory effort is even, unlabored, Respiratory pattern is regular, symmetrical, oxygen levels low. GI: No signs and/or symptoms were reported involving the gastrointestinal system. : No signs and/or symptoms were reported regarding the genitourinary system. Derm: Skin is intact, Skin is pink, warm \T\ dry. normal. Musculoskeletal: shortening and rotation in R leg. 07:00 General: Appears in no apparent distress. uncomfortable, Behavior is calm, cooperative, jl7 appropriate for age. Pain: Complains of pain in right hip Pain currently is 5 out of 10 on a pain scale. Neuro: Level of Consciousness is awake, obeys commands, drowsy. Cardiovascular: Patient's skin is warm and dry. Respiratory: Airway is patent Respiratory effort is even, unlabored, Respiratory pattern is regular, symmetrical. Derm: Skin is pink, warm \T\ dry. Musculoskeletal: shortening and rotation noted to right leg. 07:00 Neuro: Torres Agitation-Sedation Scale (RASS): -1 Drowsy. jl7 08:00 Reassessment: Patient appears in no apparent distress at this time. No changes from jl7 previously documented assessment. Patient and/or family updated on plan of care and expected duration. Pain level reassessed. Patient is alert, oriented x 3, equal unlabored respirations, skin warm/dry/pink. 09:00 Reassessment: Dr. Granger at bedside for right hip reduction. jl7 10:06 Reassessment: Patient appears in no apparent distress at this time. Patient and/or jl7 family updated on plan of care and expected duration. Pain level reassessed. Patient is alert, oriented x 3, equal unlabored respirations, skin warm/dry/pink. pain decreased, rated 2/10 at this time. Patient states symptoms have improved. Neuro: Torres Agitation-Sedation Scale (RASS): -1 Drowsy. 10:08 Reassessment: Pt and pt's report her oxygen is always a low when she falls jl7 asleep, O2 noted to be 88 on room air while sleeping. Vital Signs: 06:57 BP 91 / 64; Pulse 92; Resp 18; Temp 97.8; Pulse Ox 99% on R/A; Weight 70.31 kg; Height al5 5 ft. 6 in. ; Pain 5/10; 07:16 BP 101 / 85; Pulse 84; Resp 15; Pulse Ox 99% ; Pain 5/10; jl7 09:00 BP 108 / 76; Pulse 76; Resp 15; Pulse Ox 95% ; jl7 10:38 BP 109 / 71; Pulse 82; Resp 15; Pulse Ox 95% on R/A; jl7 06:57 Body Mass Index 25.02 (70.31 kg, 167.64 cm) al5 06:57 Pain Scale: Adult al5 07:16 Pain Scale: Adult jl7 [place] Coma Score: 07:05 Eye Response: spontaneous(4). Motor Response: obeys commands(6). Verbal Response: al5 oriented(5). Total: 15. Trauma Score (Adult): 07:05 Eye Response: spontaneous(1); Verbal Response: oriented(1); Motor Response: obeys al5 commands(2); Systolic BP: > 89 mm Hg(4); Respiratory Rate: 10 to 29 per min(4); Rosie Score: 15; Trauma Score: 12 ED Course: 06:43 Patient arrived in ED. jj6 06:46 Ryan Fuller MD is Attending Physician. anh 06:50 Triage completed. al5 06:57 Patient has correct armband on for positive identification. Placed in gown. Bed in low al5 position. Call light in reach. Side rails up X2. Patient maintains SpO2 saturation greater than 95% on room air. Client placed on continuous cardiac and pulse oximetry monitoring. NIBP monitoring applied. nuclear monitoring technician on. 06:59 EKG done, by ED staff, reviewed by Ryan Fuller MD. oe 07:03 Sayda Walker, RN is Primary Nurse. jl7 07:05 Provided Education on: plan of care. al5 07:05 Thermoregulation: warm blanket given to patient. al5 07:06 CT Head C Spine In Process Unspecified. EDMS 07:06 Arm band placed on right wrist. Patient placed in the treatment room, in view of staff al5 members, on oxygen, on nuclear monitoring technician, on pulse oximetry. 07:16 Initial lab(s) drawn, by me, sent to lab. Inserted saline lock: 22 gauge in left jl7 forearm, using aseptic technique. Blood collected. Flushed with 10 mL NS. 07:29 Chest Single View XRAY In Process Unspecified. EDMS 07:30 Pelvis XRAY In Process Unspecified. EDMS 07:30 Hip Right 2 View XRAY In Process Unspecified. EDMS 08:03 Attending Physician role handed off by Ryan Fuller MD rn 08:03 Stoney Granger MD is Attending Physician. rn 08:17 Urine collected: Webb catheter specimen, clear. Webb cath inserted, using sterile db technique, 16 Fr., by ED staff, balloon inflated, returned richard urine. Patient tolerated well. 09:00 Assist provider with reduction of right traumatic dislocation of hip using jl7 manipulation, Set up for procedure. Performed by Stoney Granger MD Patient tolerated well. 09:24 Provided Education on: Conscious Sedation. jl7 09:32 Hip Right 2 View In Process Unspecified. EDMS 10:20 Chapito Leary MD is Referral Physician. rn 10:38 IV discontinued, intact, bleeding controlled, No redness/swelling at site. Pressure jl7 dressing applied. Administered Medications: 08:06 CANCELLED (Duplicate Order): ns 0.9% 500 ml 500 ml IV at 1 bolus once; to be given as a rn bolus over 30 minutes 08:20 Drug: NS 0.9% IV 500 ml 500 ml IV at 1 bolus once; to be given as a bolus over 30 ss minutes Volume: 500 ml; Route: IV; Rate: 1 bolus; Site: left forearm; 09:00 Follow up: Response: No adverse reaction; IV Status: Completed infusion; IV Intake: jl7 500ml 08:20 Drug: NS 0.9% IV 500 ml IV at 100 ml/hr once Route: IV; Rate: 100 ml/hr; Site: left ss forearm; 10:00 Follow up: IV Status: Completed infusion jl7 08:30 Drug: fentaNYL (PF) IVP 50 mcg IVP once Route: IVP; Site: left forearm; 09:00 Follow up: Response: No adverse reaction; Pain is decreased; RASS: Drowsy (-1) 08:30 Drug: Ondansetron IVP 4 mg IVP once; over 2 minutes Route: IVP; Site: left forearm; 09:00 Follow up: Response: No adverse reaction 09:00 Drug: Propofol IVP 100 mg IVP once; Document RASS score. Route: IVP; Site: left forearm; 09:00 Follow up: Response: RASS: Drowsy (-1) 09:05 Follow up: Response: No adverse reaction; RASS: Moderate sedation (-3) 09:10 Follow up: Response: RASS: Light sedation (-2) 10:10 Not Given (Physician Discretion): fentanyl (pf)50 mcg IVP once Medication: 07:05 VIS not applicable for this client. al5 Intake: 09:00 IV: 500ml; Total: 500ml. 07:05 n/a al5 Outcome: 10:20 Discharge ordered by . rn 10:38 Discharged to home via wheelchair, with significant other, jl7 10:38 Condition: stable 10:38 Discharge instructions given to patient, Instructed on discharge instructions, follow up and referral plans. Demonstrated understanding of instructions, follow-up care, 10:39 Patient's length of stay was not longer than 2 hours. jl7 10:39 Patient left the ED. 7 Signatures: Dispatcher [employer] EDRyan Sprague MD MD cha Nieto, Roman, MD MD rn Blanchard, Shelby, RN Jarad aMo Jahala, RN RN jl7 Madalyn Cortés6 Violet Harrison RN Hiwot Hamm RN RN al5
[2024-11-24 10:57] VITALS: TEMP 97.8
[2024-11-24 11:00] VITALS: O2SAT 95
[2024-11-24 11:01] VITALS: BP 109/71
--- NOTE | 2024-11-24 11:29 | EKG ---
Test Date: 2024-11-24 Test Time: 06:52:00 Washer Machine: MOIRA MEASUREMENT RESULTS: Intervals: Rate: 88 OH: 142 QRSD: 84 QT: 358 QTc: 433 [place]: P: 22 OH: 142 QRS: 65 T: 60 INTERPRETIVE STATEMENTS: Normal sinus rhythm Normal ECG Compared to ECG 08/05/2024 11:35:22 Myocardial infarct finding no longer present Electronically Signed On 11-24-24 11:28:13 CDT by Jorge Jason
== END 2024-11-24 10:39 | disposition home or self-care (01) ==
LOC: ER 06:42
DX: T84.020A Dislocation of internal right hip prosthesis, initial encounter (principal); W07.XXXA Fall from chair, initial encounter; F17.210 Nicotine dependence, cigarettes, uncomplicated; Z96.641 Presence of right artificial hip joint
CPT/HCPCS: 96361; 93005; 85025; 81001; 36415; 85610; 84484; 80053; 70450; 72125; 71045; 72170; 73502 ×2; 51702; 96375; 96374; 99285; 27252; J2704; J3010; J2405; J7030

== ENCOUNTER 2024-11-26 12:49 | Inpatient (IN) | payer OTHER ==
--- NOTE | 2024-11-26 15:19 | EDPHYS ---
Physician Documentation [facility] Name: Kelly Reddy Age: 64 yrs Sex: Female : 1960 Arrival Date: 11/26/2024 Time: 12:49 Bed 18 Private MD: ED Physician Dinora Mccloud HPI: 11/26 13:46 This 64 yrs old Female presents to ER via EMS with complaints of Hip Pain. gb1 13:46 64-year-old female with a history of a right total hip replacement about a gb1 month ago the patient denies any falls or recent trauma to the hip. She is in a wheelchair at home due to inability to walk since the hip was dislocated about 2 days ago and was relocated here in the emergency department. The patient is not up and walking around on her own even assisted.. 13:46 The patient's orthopedic surgeon is Dr. Leary.. gb1 Historical: - Allergies: 13:35 Iodine; kj2 - PMHx: 13:35 Anemia; Bladder problem; chronic back pain; depressive disorder; Hypercholesterolemia; kj2 Hypertension; spinal stenosis; - PSHx: 13:35 hip replacement (li); tubal ligation; kj2 - Immunization history:: Adult Immunizations unknown. - Infectious Disease History:: Denies. - Social history:: Smoking status: Patient reports the use of cigarette tobacco products, smokes one pack cigarettes per day. Exam: 13:46 Constitutional: This is a well developed, well nourished patient who is awake, alert, gb1 and in no acute distress. Head/Face: Normocephalic, atraumatic. Eyes: Pupils equal round and reactive to light, extra-ocular motions intact. Lids and lashes normal. Conjunctiva and sclera are non-icteric and not injected. Cornea within normal limits. Periorbital areas with no swelling, redness, or edema. ENT: Nares patent. No nasal discharge, no septal abnormalities noted. Tympanic membranes are normal and external auditory canals are clear. Oropharynx with no redness, swelling, or masses, exudates, or evidence of obstruction, uvula midline. Mucous membranes moist. Neck: Trachea midline, no thyromegaly or masses palpated, and no cervical lymphadenopathy. Supple, full range of motion without nuchal rigidity, or vertebral point tenderness. No Meningismus. Chest/axilla: Normal chest wall appearance and motion. Nontender with no deformity. No lesions are appreciated. Cardiovascular: Regular rate and rhythm with a normal S1 and S2. No gallops, murmurs, or rubs. Normal PMI, no JVD. No pulse deficits. Respiratory: Lungs have equal breath sounds bilaterally, clear to auscultation and percussion. No rales, rhonchi or wheezes noted. No increased work of breathing, no retractions or nasal flaring. Abdomen/GI: Soft, non-tender, with normal bowel sounds. No distension or tympany. No guarding or rebound. No evidence of tenderness throughout. Back: No spinal tenderness. No costovertebral tenderness. Full range of motion. Skin: Warm, dry with normal turgor. Normal color with no rashes, no lesions, and no evidence of cellulitis. MS/ Extremity: Pulses equal, no cyanosis. Neurovascular intact. Patient has been externally rotated and shortened leg on the right lower extremity. She is unable to lift her leg against gravity and has pain with any movement passively of the right lower extremity. Vital Signs: 13:32 BP 98 / 72; Pulse 91; Resp 20; Temp 98; Pulse Ox 98% ; Weight 70.31 kg; Height 5 ft. 6 kj2 in. ; 14:22 BP 91 / 60; Pulse 68; Resp 18; Pulse Ox 100% on R/A; kj2 15:15 BP 116 / 79; Pulse 93; Resp 20; Pulse Ox 97% on R/A; kj2 16:00 BP 117 / 85; Pulse 93; Resp 20; Pulse Ox 95% ; kj2 17:00 BP 118 / 84; Pulse 90; Resp 18; Pulse Ox 100% on R/A; jl7 18:00 BP 117 / 86; Pulse 91; Resp 18; Temp 98; Pulse Ox 100% on R/A; jl7 13:32 Body Mass Index 25.02 (70.31 kg, 167.64 cm) kj2 MDM: 13:34 Medical Screening Exam initiated gb1 15:20 Data reviewed: vital signs, nurses notes, radiologic studies, plain films. ED course: gb1 64-year-old female here with right hip pain she is status post 1 month of a right total hip replacement. This is her second artificial hip displacement dislocation. I have let Dr. Leary know/and she has been admitted to the hospital she will be n.p.o. after midnight and he will take her to the operating room for open reduction internal fixation.. 11/26 15:41 Order name: CBC with Diff gb1 11/26 15:41 Order name: LFT's gb1 11/26 15:41 Order name: NT PRO-BNP gb1 11/26 15:41 Order name: PT-INR gb1 11/26 15:41 Order name: Troponin HS gb1 11/26 15:52 Order name: CBC with Automated Diff EDMS 11/26 15:52 Order name: Comprehensive Metabolic Panel EDMS 11/26 15:52 Order name: Urinalysis w/ reflexes EDMS 11/26 15:56 Order name: Comprehensive Metabolic Panel EDMS 11/26 19:07 Order name: Urinalysis w/ reflexes EDMS 11/26 13:44 Order name: Pelvis XRAY gb1 11/26 13:44 Order name: Hip Right 2 View XRAY gb1 11/26 15:41 Order name: XRAY Chest (1 view) gb1 11/26 15:41 Order name: EKG; Complete Time: 15:41 gb1 11/26 15:52 Order name: Physical Therapy Consult EDMS 11/26 15:41 Order name: Cardiac monitoring; Complete Time: 18:20 gb1 11/26 15:41 Order name: EKG - Nurse/Tech; Complete Time: 18:20 gb1 11/26 15:41 Order name: IV Saline Lock; Complete Time: 19:05 gb1 11/26 15:41 Order name: Labs collected and sent; Complete Time: 19:05 gb1 11/26 15:41 Order name: O2 Per Protocol; Complete Time: 18:20 gb1 11/26 15:41 Order name: O2 Sat Monitoring; Complete Time: 18:20 gb1 Administered Medications: No medications were administered Disposition Summary: 11/26/24 15:18 Hospitalization Ordered Notes: Hospitalization Status: Inpatient Admission gb1 Provider: Jessica Reynolds gbMarjorie Location: Telemetry/MedSurg (Inpatient) gb1 Condition: Stable gb1 Problem: an ongoing problem gb1 Symptoms: have worsened gb1 Bed/Room Type: Standard [facility] Room Assignment: [facility](11/26/24 17:50) bd Diagnosis - Dislocation of internal right hip prosthesis gb1 Forms: - Medication Reconciliation Form gb1 - SBAR form gb1 - Leadership Thank You Letter gb1 Signatures: Dispatcher [employer] Ivy Covarrubias Gina, MD MD gb1 Vivi Hallman RN RN kj2 Corrections: (The following items were deleted from the chart) 17:50 15:18 gb1 bd
--- NOTE | 2024-11-26 15:19 | ER ---
Nurse's Notes [facility] Name: Kelly Reddy Age: 64 yrs Sex: Female : 1960 Arrival Date: 11/26/2024 Time: 12:49 Bed 18 Private MD: Diagnosis: Dislocation of internal right hip prosthesis Presentation: 11/26 13:32 Chief complaint: EMS states: possible right hip dislocation, pain in right hip. kj2 Coronavirus screen: Client denies travel out of the [place] in the last 14 days. Ebola Screen: No symptoms or risks identified at this time. Initial Sepsis Screen: Does the patient meet any 2 criteria? No. Patient's initial sepsis screen is negative. Does the patient have a suspected source of infection? No. Patient's initial sepsis screen is negative. Risk Assessment: Do you want to hurt yourself or someone else? Patient reports no desire to harm self or others. Onset of symptoms was November 26, 2024. 13:32 Method Of Arrival: EMS: [facility] kj2 13:32 Acuity: JESSICA 3 kj2 Triage Assessment: 16:00 General: Appears Behavior is cooperative. Pain: Complains of pain in right hip. kj2 Historical: - Allergies: 13:35 Iodine; kj2 - PMHx: 13:35 Anemia; Bladder problem; chronic back pain; depressive disorder; Hypercholesterolemia; kj2 Hypertension; spinal stenosis; - PSHx: 13:35 hip replacement (li); tubal ligation; kj2 - Immunization history:: Adult Immunizations unknown. - Infectious Disease History:: Denies. - Social history:: Smoking status: Patient reports the use of cigarette tobacco products, smokes one pack cigarettes per day. Screenin:35 [facility] ED Fall Risk Assessment (Adult) History of falling in the last 3 months, kj2 including since admission No falls in past 3 months (0 pts) Confusion or Disorientation No (0 pts) Intoxicated or Sedated No (0 pts) Impaired Gait Yes (1 pt) Mobility Assist Device Used Yes (1 pt) Altered Elimination No (0 pt) Score/Fall Risk Level 0 - 2 = Low Risk Maintained a safe environment, Hourly rounding (assess needs \T\ fall precautionary measures) done. Abuse screen: Denies threats or abuse. Denies injuries from another. Nutritional screening: No deficits noted. Tuberculosis screening: No symptoms or risk factors identified. Assessment: 13:30 General: see triage assessment. kj2 14:22 Reassessment: Patient appears in no apparent distress at this time. Patient and/or kj2 family updated on plan of care and expected duration. Pain level reassessed. Patient is alert, oriented x 3, equal unlabored respirations, skin warm/dry/pink. 15:16 Reassessment: Patient appears in no apparent distress at this time. Patient and/or kj2 family updated on plan of care and expected duration. Pain level reassessed. Patient is alert, oriented x 3, equal unlabored respirations, skin warm/dry/pink. 16:00 Reassessment: Patient appears in no apparent distress at this time. Patient and/or kj2 family updated on plan of care and expected duration. Pain level reassessed. Patient is alert, oriented x 3, equal unlabored respirations, skin warm/dry/pink. 16:00 Reassessment: Per hospitalist verbal orders during his rounds, 16Fr mendenhall catheter kj2 inserted sterile technique, patient merlyn well, 800ml urine in bag. 17:00 Reassessment: Patient appears in no apparent distress at this time. Patient and/or jl7 family updated on plan of care and expected duration. Pain level reassessed. Patient is alert, oriented x 3, equal unlabored respirations, skin warm/dry/pink. 18:00 Reassessment: Patient appears in no apparent distress at this time. Patient and/or jl7 family updated on plan of care and expected duration. Pain level reassessed. Patient is alert, oriented x 3, equal unlabored respirations, skin warm/dry/pink. Vital Signs: 13:32 BP 98 / 72; Pulse 91; Resp 20; Temp 98; Pulse Ox 98% ; Weight 70.31 kg; Height 5 ft. 6 kj2 in. ; 14:22 BP 91 / 60; Pulse 68; Resp 18; Pulse Ox 100% on R/A; kj2 15:15 BP 116 / 79; Pulse 93; Resp 20; Pulse Ox 97% on R/A; kj2 16:00 BP 117 / 85; Pulse 93; Resp 20; Pulse Ox 95% ; kj2 17:00 BP 118 / 84; Pulse 90; Resp 18; Pulse Ox 100% on R/A; jl7 18:00 BP 117 / 86; Pulse 91; Resp 18; Temp 98; Pulse Ox 100% on R/A; jl7 13:32 Body Mass Index 25.02 (70.31 kg, 167.64 cm) kj2 ED Course: 13:30 Patient arrived in ED. kj2 13:31 Vivi Hallman, RN is Primary Nurse. kj2 13:34 Dinora Mccloud MD is Attending Physician. gb1 13:34 Triage completed. kj2 13:35 Patient has correct armband on for positive identification. Bed in low position. Call kj2 light in reach. Provided Education on: call light. 14:26 Pelvis XRAY In Process Unspecified. EDMS 14:26 Hip Right 2 View XRAY In Process Unspecified. EDMS 15:17 Dinora Mccloud MD is Hospitalizing Provider. gb1 15:17 Jessica Reynolds MD is Hospitalizing Provider. gb1 17:23 XRAY Chest (1 view) In Process Unspecified. EDMS 19:06 Inserted saline lock: 24 gauge in right antecubital area, using aseptic technique. jl7 Blood collected. Flushed with 10 mL NS. 20:14 Arm band placed on Patient placed. kj2 20:15 No provider procedures requiring assistance completed. Patient admitted, IV remains in kj2 place. Administered Medications: No medications were administered Medication: 10:00 VIS not applicable for this client. kj2 Outcome: 15:18 Decision to Hospitalize by Provider. gb1 20:15 Admitted to Med/surg kj2 20:15 Condition: stable 20:15 Instructed on the need for admit, 20:16 Patient left the ED. kj2 Signatures: Dispatcher [employer] EDSayda Samaniego, RN RN jl7 Dinora Mccloud MD MD gb1 Vivi Hallman, RUTH RN kj2
[2024-11-26] MEDS ORDERED: ONDANSETRON 4 MG/2 ML VIAL IV PRN (15:47)
--- NOTE | 2024-11-26 15:59 | P.HP ---
Certification for Inpatient With expected LOS: >2 Midnights Patient will require the following post-hospital care: Home Health Services Practitioner: I am a practitioner with admitting privileges, knowledge of patient current condition, hospital course, and medical plan of care. Services: Services provided to patient in accordance with Admission requirements found in Title 42 Section 412.3 of the Code of Federal Regulations Patient History Date of Service: 11/26/24 Reason for admission: Right hip pain History of Present Illness: 64-year-old female with history of hypertension, hyperlipidemia, recent right total arthroplasty a month ago, who was seen at the ER 2 days ago for right hip pain. Imaging then showed right hip dislocation. This was reduced in the ER with subsequent imaging showing reduction of right hip from previously dislocated position. Patient was then discharged home. Upon discharge, patient stated that she continued to experience severe right hip pain, prompting patient to come back to the emergency room today with imaging studies showing right hip dislocation. Orthopedic surgeon, Dr. Leary who performed initial surgery has been consulted. n At bedside, patient continues to experience pain, rated pain as a 7 on a 1-10 pain scale. at bedside. Of note patient stated that she fell from her wheelchair 2 weeks ago, and this may have caused the initial dislocatio Allergies iodine Allergy (Verified 10/03/24 11:03) hives,itch Home Medications: ALPRAZolam [Alprazolam] 0.5 mg PO BIDP PRN 10/03/24 ARIPiprazole [Aripiprazole] 2 mg PO DAILY 10/03/24 Aspirin [Aspirin Regimen] 81 mg PO DAILY 10/03/24 Buprenorphine HCl/Naloxone HCl [Buprenorphin-Naloxon 8-2 mg Sl] 1 each SL BID 10/03/24 Calcium Carbonate/Vitamin D3 [Calcium 250-D Tablet] 1 tab PO DAILY 10/03/24 Cholecalciferol (Vitamin D3) [Vitamin D3] 125 mcg PO DAILY 10/03/24 Cyanocobalamin (Vitamin B-12) [Vitamin B12] 1,000 mcg PO DAILY 10/03/24 Ferrous Sulfate 325 mg PO SEECOM 10/03/24 Fluoxetine HCl [Prozac] 40 mg PO DAILY 10/03/24 Folic Acid 1 mg PO DAILY 10/03/24 Ibuprofen [Advil] 200 mg PO TID PRN 10/03/24 Simvastatin 20 mg PO BEDTIME 10/03/24 - Past Medical/Surgical History Diabetic: No -: HLD -: Spinal Stenosis -: Scoliosis -: CVA -: depression -: anxiety -: OCD -: Prolapsed bladder -: left knee replacement -: R Hip replacement -: L Elbow- osteo - Family History Mother -: Heart disease - Social History Alcohol use: No CD- Drugs: No Caffeine use: Yes Review of Systems General: Unremarkable Eyes: Unremarkable ENT: Unremarkable Respiratory: Unremarkable Cardiovascular: Unremarkable Gastrointestinal: Unremarkable Physical Examination - Physical Exam General: Alert, Oriented x3 HEENT: Atraumatic Neck: Supple Respiratory: Clear to auscultation bilaterally Cardiovascular: No edema, Regular rate/rhythm Gastrointestinal: Normal bowel sounds Musculoskeletal: No clubbing, No swelling, No contractures, No erythema, Tenderness, Other (Tenderness with any passive motion of the right hip) Neurological: Normal gait, Normal strength at 5/5 x4 extr Assessment and Plan - Plan 1. Right hip dislocation in the setting of recent right total hip arthroplasty - Per patient, she underwent a right total hip arthroplasty about a month ago - 2 weeks ago, fell from the wheelchair, which may have been the cause of the recent dislocation - Imaging studies done in the ER positive for right hip dislocation - Orthopedic surgeon, Dr. Leary consulted 2. History of essential hypertension and hyperlipidemia - Resume home meds 3. Disposition: Pending PT/OT evaluation when acute issues resolved 4. Discussed with patient, she wants to be full code. - Advance Directives Does patient have a Living Will: Yes Does patient have a Durable POA for Healthcare: No
--- NOTE | 2024-11-26 16:11 | RAD REPORT ---
EXAMINATION: XR PELVIS CLINICAL INDICATION: Female, 64 years old. [facility] MAIN TRAUMA Bed Name: 18 TECHNIQUE: AP Pelvis radiograph was obtained. COMPARISON: 11/24/2024 multiple right hip radiographs FINDINGS: No evidence of fracture. Repeat dislocation of the right hip arthroplasty, with femoral hea d component residing approximately 6 cm above the center of the acetabulum. Mild left hip joint changes again seen. No evidence of AVN. Soft tissue swelling about the right hip IMPRESSION: Repeat superior lateral dislocation of the right femoral prosthesis.
--- NOTE | 2024-11-26 16:12 | RAD REPORT ---
EXAMINATION: XR Hip Right 2 View CLINICAL INDICATION: Female, 64 years old. [facility] MAIN DEFORMITY Bed Name: 18 TECHNIQUE: 2 view radiograph of the right hip were obtained. COMPARISON: 11/24/2024. FINDINGS: No evidence of fracture. Repeat right hip superior lateral dislocation of the femoral head prosthetic component. No focal suspicious osseous lesion. Soft tissues are unremarkable. IMPRESSION: Repeat right hip prosthesis dislocation.
--- NOTE | 2024-11-26 17:57 | RAD REPORT ---
EXAMINATION: ONE VIEW CHEST XR CLINICAL INDICATION: Female, 64 years old.,COUGH TECHNIQUE: Frontal chest projection is submitted. Examination is limited by patient positioning and t echnique. COMPARISON: 11/24/2024 FINDINGS: Progressive interstitial coarsening particularly in the peripheral lungs. Volume loss especially on t he left. No pneumothorax or sizable effusion. The heart is normal in size. Mediastinal contours are unremarkable. IMPRESSION: Progressive interstitial coarsening, may reflect acute on top of chronic interstitial pneumonitis.
[2024-11-26 18:49] LABS: PT Prothrombin Time 12.5 SECONDS (10-13.0); Protime INR 1.1
[2024-11-26 18:51] LABS: Absolute Basophils 0.1 K/uL (0-0.5); Absolute Eosinophils 0.3 K/uL (0-0.5); Absolute Lymphocytes (CBC) 1.3 K/uL (0.7-4.9); Absolute Monocytes 0.6 K/uL (0.1-1.3); Absolute Neutrophil 4.9 K/uL (1.8-8.0); Basophils % 0.7 % (0-1.3); Eosinophils % 4.8 % (0-4.4); Hematocrit 34.7 % (36.0-45.0); Hemoglobin 11.9 g/dL (12.0-15.0); Lymphocytes % 18.1 % (15.3-44.8); MCH 29.5 pg (27.0-35.0); MCHC 34.3 g/dL (32.0-36.0); MCV 86.1 fL (80-100); MPV 7.7 fL (7.6-11.3); Monocytes % 7.9 % (3.3-12.3); Neutrophils % 68.5 % (41.7-73.7); Nucleated Red Blood Cells % 0.1 % (0-0); Platelets 321 thou/uL (152-406); RBC Red Blood Cell Count 4.03 M/uL (3.86-4.86); Red Cell Distribution Width 13.4 % (12.1-15.2)
[2024-11-26 18:57] LABS: Albumin 3.2 g/dL (3.4-5.0); Albumin/Globulin Ratio 0.7 (1.1-1.8); Bilirubin Direct 0.2 mg/dL (0-0.2); Bilirubin Indirect, Calculated 0.5 mg/dL (0.2-0.8); Bilirubin Total 0.7 mg/dL (0.2-1.0); Globulin 4.4 g/dL (2.3-3.5); Protein, Total 7.6 g/dL (6.4-8.2); Troponin High Sensitivity 5.1 pg/mL (<58.9)
[2024-11-26 19:14] LABS: Specific Gravity 1.009 (1.005-1.030); Urine Bilirubin NEGATIVE (Negative); Urine Blood Negative (Negative); Urine Clarity Clear (Clear); Urine Color Light-Yellow (Yellow); Urine Glucose NEGATIVE (Negative); Urine Ketones NEGATIVE (Negative); Urine Microscopic Reflex YN NO UMIC; Urine Nitrite NEGATIVE (Negative); Urine Protein NEGATIVE (Negative); Urine Urobilinogen Normal (Normal); Urine pH 6.5 (5.0-7.0)
[2024-11-26] MEDS: HYDROCODONE/APAP 5/325 MG TAB PO PRN (22:24)
[2024-11-26 22:56] LABS: Potassium 3.2 mEq/L (3.5-5.1)
[2024-11-26 22:57] LABS: Anion Gap 7.2 mEq/L (5.0-15.0)
--- NOTE | 2024-11-27 00:19 | CON ---
Date of Consultation: 11/26/2024 The patient is seen today in the emergency department. She recently came in with a dislocated right total hip, which was dislocated after probable fall. Before that, she was approximately 7 weeks' out from uneventful total hip arthroplasty and doing well. She was seen in my office post-op 6 weeks, where x-rays were taken, which demonstrated what appeared to be a very good position and fixation of the hip. When she came to the hospital after the fall, she underwent a closed reduction by ER staff. Postreduction radiographs demonstrated it was well reduced and concentric. Unfortunately today, she said that she had a lot of pain in her hip and was not able to walk. She returned to the emergency department, where x-rays were taken, which demonstrated repeat dislocation of the hip. At this time, risks, benefits, and alternatives of different methods of managing this were discussed with the patient. The plan is to admit her to the hospital under the care of the hospitalist and tomorrow undergo revision hip arthroplasty. She does have a bearing, which is slightly shorter than the standard bearing and we definitely have some room to go up with regard to length of the bearing. The plan would be for exchange of the bearing and assess the fixation of the acetabulum. If the acetabulum is shifted or not fixed, probably would need to revise this as well, but otherwise looks like it is in good position and has not changed since initial placement. The patient and family say they understand things as presented. We will ask her to be n.p.o. after at 7 in the morning as the soonest we could reliably get to this in an organized fashion would be tomorrow afternoon. They state they understand things as presented. JUAN F Voice ID: [id number] Report ID: [id number] AURELIO
[2024-11-27 05:54] LABS: Absolute Basophils 0.1 K/uL (0-0.5); Absolute Eosinophils 0.4 K/uL (0-0.5); Absolute Lymphocytes (CBC) 1.4 K/uL (0.7-4.9); Absolute Monocytes 0.5 K/uL (0.1-1.3); Absolute Neutrophil 3.2 K/uL (1.8-8.0); Eosinophils % 7.5 % (0-4.4); Hematocrit 30.1 % (36.0-45.0); Hemoglobin 10.4 g/dL (12.0-15.0); Lymphocytes % 25.3 % (15.3-44.8); MCH 29.9 pg (27.0-35.0); MCHC 34.5 g/dL (32.0-36.0); MCV 86.7 fL (80-100); MPV 7.8 fL (7.6-11.3); Monocytes % 8.5 % (3.3-12.3); Neutrophils % 57.7 % (41.7-73.7); Platelets 291 thou/uL (152-406); RBC Red Blood Cell Count 3.47 M/uL (3.86-4.86); Red Cell Distribution Width 13.2 % (12.1-15.2)
[2024-11-27 06:10] LABS: Albumin 2.5 g/dL (3.4-5.0); Albumin/Globulin Ratio 0.7 (1.1-1.8); Anion Gap 8.2 mEq/L (5.0-15.0); Bilirubin Total 0.6 mg/dL (0.2-1.0); Globulin 3.8 g/dL (2.3-3.5); Potassium 3.2 mEq/L (3.5-5.1); Protein, Total 6.3 g/dL (6.4-8.2)
[2024-11-27] MEDS ORDERED: ALPRAZOLAM 0.5 MG TABLET PO PRN (06:51)
[2024-11-27] MEDS: FLU (Fluarix Triv) TS24-25(6MOS UP)/PF 45 MCG/0.5 ML Syringe IM ONE (07:30)
[2024-11-27] MEDS: Ringers Lactate 1,000 ML IV SCH (08:00)
[2024-11-27] MEDS: HOME MED 1 EA UNK (Aripiprazole [Aripiprazole] 2 MG Tablet) PO SCH (09:00)
[2024-11-27] MEDS: FLUOXETINE 20 MG CAP PO SCH (09:00)
[2024-11-27] MEDS: MORPHINE 2 MG/ML SYR IV PRN (10:37)
--- NOTE | 2024-11-27 11:47 | EKG ---
Test Date: 2024-11-26 Test Time: 17:31:37 Bridal Stylist Sales Consultant: EITAN MEASUREMENT RESULTS: Intervals: Rate: 80 WY: 160 QRSD: 84 QT: 402 QTc: 463 [place]: P: 21 WY: 160 QRS: 22 T: 44 INTERPRETIVE STATEMENTS: Normal sinus rhythm Normal ECG Compared to ECG 11/24/2024 06:52:00 No significant changes Electronically Signed On 11-27-24 11:46:06 CDT by Jorge Jason
[2024-11-27] MEDS ORDERED: MORPHINE 2 MG/ML SYR IV PRN (14:26)
--- NOTE | 2024-11-27 15:11 | P.PN ---
Subjective Date of Service: 11/27/24 Chief Complaint: Right hip pain No complaints, pain controlled Review of Systems ENT: Unremarkable Respiratory: Unremarkable Cardiovascular: Unremarkable Gastrointestinal: Unremarkable Neurological: Unremarkable Physical Examination - Vital Signs Temperature: 98.0 F Blood Pressure: 90/53 Pulse: 62 Respirations: 20 Pulse Ox (%): 97 - Physical Exam General: Alert, Oriented x3 HEENT: Atraumatic Neck: Supple Respiratory: Clear to auscultation bilaterally Cardiovascular: No edema, Regular rate/rhythm Gastrointestinal: Normal bowel sounds, Soft and benign, Non-distended Musculoskeletal: No clubbing, No swelling, No contractures Neurological: Normal gait, Normal speech, Normal strength at 5/5 x4 extr - Studies Laboratory Data (last 24 hrs) 11/26/24 11/26/24 11/26/24 18:30 18:30 18:30 WBC 7.20 Hgb 11.9 L Hct 34.7 L Plt Count 321 PT 12.5 INR 1.10 Sodium 136 Potassium 3.2 L BUN 11 Creatinine 0.80 Glucose 118 H Total Bilirubin 0.7 AST 32 ALT 26 Alkaline Phosphatase 81 11/26/24 16:00 WBC Hgb Hct Plt Count PT INR Sodium Cancelled Potassium Cancelled BUN Cancelled Creatinine Cancelled Glucose Cancelled Total Bilirubin Cancelled AST Cancelled ALT Cancelled Alkaline Phosphatase Cancelled Assessment And Plan - Plan 1. Right hip dislocation in the setting of recent right total hip arthroplasty - Per patient, she underwent a right total hip arthroplasty about a month ago - 2 weeks ago, fell from the wheelchair, which may have been the cause of the recent dislocation - Imaging studies done in the ER positive for right hip dislocation - Orthopedic surgeon, Dr. Leary consulted: Plan for right total hip revision tomorrow 2. History of essential hypertension and hyperlipidemia - Resume home meds 3. Disposition: Pending PT/OT evaluation when acute issues resolved 4. Discussed with patient, she wants to be full code.
[2024-11-27] MEDS: Ringers Lactate 1,000 ML IV ONE (15:15)
[2024-11-27] MEDS: MIDODRINE HCL 5 MG TABLET PO ONE (15:15)
[2024-11-27] MEDS: POTASSIUM CL SA 10 MEQ TAB PO ONE (18:07)
[2024-11-27] MEDS: MIDODRINE HCL 5 MG TABLET PO SCH (21:04)
[2024-11-27] MEDS: ACETAMINOPHEN 500 MG TAB PO PRN (21:06)
[2024-11-27] MEDS: NA CHLORIDE 0.9% 1,000 ML IV ONE (23:47)
[2024-11-28 00:28] LABS: Absolute Eosinophils 0.2 K/uL (0-0.5); Absolute Lymphocytes (CBC) 1.2 K/uL (0.7-4.9); Absolute Monocytes 0.6 K/uL (0.1-1.3); Absolute Neutrophil 5.4 K/uL (1.8-8.0); Basophils % 0.6 % (0-1.3); Eosinophils % 2.8 % (0-4.4); Hematocrit 29.1 % (36.0-45.0); Lymphocytes % 16.4 % (15.3-44.8); MCH 29.5 pg (27.0-35.0); MCHC 34.3 g/dL (32.0-36.0); MCV 86.1 fL (80-100); MPV 7.7 fL (7.6-11.3); Monocytes % 7.6 % (3.3-12.3); Neutrophils % 72.6 % (41.7-73.7); Platelets 282 thou/uL (152-406); RBC Red Blood Cell Count 3.38 M/uL (3.86-4.86)
[2024-11-28] MEDS: NA CHLORIDE 0.9% 1,000 ML IV ONE (01:29)
[2024-11-28] MEDS: Ringers Lactate 1,000 ML IV SCH (08:07)
[2024-11-28] MEDS: TRANEXAMIC ACID 1,000 MG/10 ML VIAL IV ONE (10:29)
[2024-11-28] MEDS: CEFAZOLIN SODIUM 1 GM/VIAL ONE (10:29)
[2024-11-28] MEDS: ROPIVACAINE HCL 20 ML ONE (10:37)
[2024-11-28] MEDS: dexAMETHasone 10 MG/ML VIAL ONE (10:37)
[2024-11-28] MEDS: EPINEPHRINE 1 MG/ML VIAL ONE (10:37)
[2024-11-28] MEDS ORDERED: propofoL 200 MG/20 ML VIAL IV ONE (11:15)
[2024-11-28] MEDS ORDERED: FENTANYL CITR 100 MCG/2 ML ONE ×2 (11:15→11:59)
[2024-11-28] MEDS ORDERED: ONDANSETRON 4 MG/2 ML VIAL ONE (11:15)
[2024-11-28] MEDS ORDERED: LIDOCAINE 2% MPF 5 ML VIAL ONE (11:15)
[2024-11-28] MEDS ORDERED: EPHEDRINE SULF 50 MG/ML VIAL ONE (11:29)
[2024-11-28] MEDS ORDERED: KETAMINE HCL IN 0.9 % NACL 50 MG/5 ML SYRINGE IV ONE (11:58)
--- NOTE | 2024-11-28 13:18 | P.BOP ---
Preoperative diagnosis: right dislocated MAURICIO Postoperative diagnosis: same Primary procedure: right hip revision arthoplasty (longer bearing) Estimated blood loss: 150 ccs Anesthesia: General Transferred to: Recovery Room Condition: Good
--- NOTE | 2024-11-28 13:20 | RAD REPORT ---
EXAMINATION: XR RIGHT HIP CLINICAL INDICATION: . TOTAL HIP TECHNIQUE: Intraoperative view of the right hip were obtained. COMPARISON: No prior exam. FINDINGS: Intraoperative projection of right total hip arthroplasty noted.. Study is quite limited. N o fracture appreciated.
[2024-11-28] MEDS: Ringers Lactate 1,000 ML IV ONE (13:36)
--- NOTE | 2024-11-28 13:45 | OP ---
Date of Procedure: 11/28/2024 Surgeon: Chapito Leary MD Preoperative Diagnosis: Right hip total hip arthroplasty dislocation. Postoperative Diagnosis: Right hip total hip arthroplasty dislocation. Procedure: Right hip open reduction with exchange of bearing to longer bearing and relocation of hip . This was the [facility]oker system. Indications For Operation: Ms. Reddy is a 64-year-old female, who walks with a walker. She has unde rgone approximately 7 weeks ago total hip arthroplasty done by me. This was done with dual mobility head as well as placement of the acetabulum in position to hopefully make dislocation less likely as she does have significant back problems and walks with significant hip flexion. After this was done, she had excellent result and she was able to come to the office walking with a walker. She had an x -ray taken, which demonstrated what appeared to be a well-fixed, well-positioned total hip arthroplas ty. Unfortunately, earlier this week, I was called to the emergency department that she had fallen a sleep and fallen from a sitting position hitting her right lower extremity as well as her head. She was brought to the emergency department. X-rays demonstrated that she had a dislocated total hip art hroplasty. They asked if they could relocate it as I was in clinic, felt that with good sedation, th yue should be able to relocate this and if that trouble and that require my assistance, I would see th jeremie in emergency department later. I had x-rays sent to me, which demonstrated what appeared to be co ncentrically located dual mobility hip with no change in the acetabulum, which was significant or sig n of any disassociation of the dual mobility, felt that she had done well and was discharged homeOsito mccartney, soon after that, she stated that she could no longer walk and she came back to the [facility] department in the ambulance and demonstrated a repeat dislocation of the same hip. Risks, bene fits, and alternatives to treatment of this have been discussed with the patient and felt that since she has had 2 relatively recent onset dislocations that revision is recommended. She states she unde rstands things as presented and wishes to proceed. Description Of Procedure: The patient was taken to the operating room and placed in supine position. General anesthesia was obtained by Anesthesia staff. Following this, she was rolled left side down . The right lower extremity was prepped and draped in usual sterile fashion for arthroplasty. The o riginal incision was lengthened slightly to allow for better visualization with the presence of scar tissue and then taken down carefully through skin and soft tissue. Any suture material seen was cal danika. This leads to the fascia. The fascia was then divided in line which exposes the hip. There wa s a fairly significant hematoma here which was evacuated. The head was then presented and the ball w as removed. After this, attention was then turned to the acetabulum and was well visualized using ac etabular retractors removing the stem anteriorly. It was felt that it appeared to be in good positio n and finger pressure did not demonstrate any instability of the acetabulum, appeared to be well fixe d. A punch was used anteriorly and it was tapped. A moderate amount to see whether or not this woul d cause the acetabulum to become mobile and did not appear to be mobile. After this, the C-arm was b rought in and she was appropriately positioned for an x-ray which demonstrated that it appeared to be in acceptable position. Decision was made to try to relocate with a +4 trial. This was unable to b e done as it was very tight and then a final neutral ball was placed in standard fashion, which requi red quite a bit of effort to get relocated and once it was relocated, it was stable to full flexion, full adduction, and internal rotation to at least 45 degrees without sign of dislocation. It was tig ht in extension, but I feel that as she walks with a walker, although this may have lengthen her long er than perhaps to be optimal for leg length and would give her more stability. At this point, this hip appears to be extremely stable. The wound was copiously irrigated and the external rotator capsu le mass was then tied down to the greater trochanter. This was again irrigated. The fascia was clos ed using heavy Vicryl sutures in a watertight fashion. This was followed by closure of the skin usin g Vicryl sutures followed by mason. The patient was then placed in Aquacel dressing and taken to r ecovery room in good condition. There were no complications. SE/MODL Voice ID: [id number] Report ID: [id number]
--- NOTE | 2024-11-28 14:23 | P.PN ---
Date of Service: 11/28/24 Subjective: Seen resting comfortably after surgery. Her boyfriend is at bedside. She is a smoker majority of her life. Her pain is controlled. Pure wick in place. We discussed working with physical therapy. She does not want to go to a [facility]. Review of Systems ENT: Unremarkable Respiratory: Unremarkable Cardiovascular: Unremarkable Gastrointestinal: Unremarkable Neurological: Unremarkable Physical Examination - Vital Signs Temperature: 98.0 F Blood Pressure: 90/53 Pulse: 62 Respirations: 20 Pulse Ox (%): 97 - Physical Exam General: Alert, Oriented x3 HEENT: Atraumatic Neck: Supple Respiratory: Clear to auscultation bilaterally Cardiovascular: No edema, Regular rate/rhythm Gastrointestinal: Normal bowel sounds, Soft and benign, Non-distended Musculoskeletal: No clubbing, No swelling, No contractures Neurological: Normal gait, Normal speech, Normal strength at 5/5 x4 extr - Studies Laboratory Data (last 24 hrs) 11/26/24 11/26/24 11/26/24 18:30 18:30 18:30 WBC 7.20 Hgb 11.9 L Hct 34.7 L Plt Count 321 PT 12.5 INR 1.10 Sodium 136 Potassium 3.2 L BUN 11 Creatinine 0.80 Glucose 118 H Total Bilirubin 0.7 AST 32 ALT 26 Alkaline Phosphatase 81 11/26/24 16:00 WBC Hgb Hct Plt Count PT INR Sodium Cancelled Potassium Cancelled BUN Cancelled Creatinine Cancelled Glucose Cancelled Total Bilirubin Cancelled AST Cancelled ALT Cancelled Alkaline Phosphatase Cancelled Assessment And Plan - Plan 1. Right hip dislocation in the setting of recent right total hip arthroplasty - Status post right total hip revision, on Ancef - Pain control, appreciate orthopedic recommendation - Advance diet 2. History of essential hypertension and hyperlipidemia - Resume home meds 3. Hypokalemia - Replace potassium 4. Disposition: Pending PT/OT evaluation when acute issues resolved 5. Depression - Continue Prozac and aripiprazole DVT prophylaxis with Lovenox
[2024-11-28] MEDS: CEFAZOLIN 1 GM in NA CHLORIDE 0.9% 50 ML IVPB SCH (16:00)
[2024-11-29 06:28] LABS: Albumin 2.3 g/dL (3.4-5.0); Albumin/Globulin Ratio 0.7 (1.1-1.8); Anion Gap 7.3 mEq/L (5.0-15.0); Bilirubin Total 0.2 mg/dL (0.2-1.0); Globulin 3.4 g/dL (2.3-3.5); Potassium 4.3 mEq/L (3.5-5.1); Protein, Total 5.7 g/dL (6.4-8.2)
[2024-11-29] MEDS: ENOXAPARIN 30 MG/0.3 ML SQ SCH (08:49)
--- NOTE | 2024-11-29 11:53 | P.PN ---
Subjective Date of Service: 11/29/24 Chief Complaint: Right hip pain Patient is complaining of pain in her right ear blood pressure is on the lower side denies any pulmonary complaints tolerating a diet Review of Systems Unremarkable Physical Examination - Vital Signs Temperature: 98.1 F Blood Pressure: 94/56 Pulse: 51 Respirations: 18 Pulse Ox (%): 98 - Physical Exam General: Alert, Mild distress Neck: Supple Respiratory: Clear to auscultation bilaterally Cardiovascular: No edema, Regular rate/rhythm Assessment And Plan - Current Problems (Diagnosis) (1) Status post total hip replacement, right Current Visit: No Status: Acute Plan: Patient is status post right sided hip right hip arthroplasty currently complaining of pain resume her narcotics labs chemistries reviewed blood pressure is on the lower side patient also has low-dose of morphine ordered continue with midodrine physical therapy as per orthopedics
--- NOTE | 2024-11-30 10:34 | P.PN ---
Subjective Date of Service: 11/30/24 Chief Complaint: Right hip pain Patient is s/p right-sided hemiarthroplasty is doing better pain is better controlled is on p.o. narcotics Review of Systems Unremarkable Physical Examination - Vital Signs Temperature: 97.9 F Blood Pressure: 105/64 Pulse: 61 Respirations: 12 Pulse Ox (%): 98 - Physical Exam General: Alert, In no apparent distress, Oriented x3 Respiratory: Clear to auscultation bilaterally Cardiovascular: No edema, Normal pulses, Regular rate/rhythm, Normal S1 S2 Assessment And Plan - Current Problems (Diagnosis) (1) Status post total hip replacement, right Current Visit: No Status: Acute Plan: Patient is s/p right sided hip arthroplasty he is doing better pain seems to be better controlled denies any other complaints plan for physical therapy rehab as per orthopedic surgeon labs reviewed no change in medications
[2024-11-30 22:59] VITALS: BMI 25.3
--- NOTE | 2024-12-01 07:04 | P.PN ---
Date of Service: 12/01/24 subjective Pending acute inpatient rehab for discharge planning PT and OT Review of Systems 10 point review of system negative unless listed in HPI Physical Examination - Vital Signs Reviewed - Physical Exam General: Alert, Oriented x3, afebrile HEENT: Atraumatic Neck: Supple Respiratory: Clear to auscultation bilaterally Cardiovascular: No edema, Regular rate/rhythm Gastrointestinal: Normal bowel sounds, Soft and benign, Non-distended Musculoskeletal: No clubbing, No swelling, No contractures Neurological: Normal gait, Normal speech, Normal strength at 5/5 x4 extr Assessment And Plan - Plan 1. Right hip dislocation in the setting of recent 11/28 right total hip arthroplasty - Status post right total hip revision, - Pain control, appreciate orthopedic recommendation - Advance diet 2. History of essential hypertension and hyperlipidemia - Resume home meds 3. Hypokalemia - Replace potassium 4. Disposition: Pending PT/OT evaluation when acute issues resolved 5. Depression - Continue Prozac and aripiprazole 6. Microcytic anemia 11.9->10.4->10.0 DVT prophylaxis with Lovenox
[2024-12-01] MEDS: BISACODYL 10 MG RECTAL SUPP PR ONE (08:33)
[2024-12-03] MEDS: CEFAZOLIN SODIUM 1 GM/VIAL ONE (08:51)
--- NOTE | 2024-12-03 12:07 | PN ---
Date of Progress Note: 12/02/2024 The patient was seen this morning. She did have an episode of bleeding overnight. She has been repl aced on Aquacel dressing. The actual dressing appears to have some blood, but there does not appear to be any active bleeding and also does not appear to be any large hematoma. I think she is fine to continue her therapy and monitor this. She will be discharged to rehab, but hoping soon; otherwise, continue current care. Anticoagulation will be left to the Hospitalist. All of her questions have juan cormier been answered. /COLLINS Voice ID: [id number] Report ID: [id number]
--- NOTE | 2024-12-03 12:27 | PN ---
Date of Progress Note: 12/03/2024 The patient is seen today. She is lying in the bed. She said that she walked yesterday with [employer] 20 feet, but complained of pain and had bleeding which had to be changed. This was done ye sterday. On seeing her today, she is in the bed. She states she is not really participating with ph ysical therapy because she is complaining of pain in the hip as well as the knee. Her dressing was c hecked today. It appears to be absolutely clean and dry with no sign of bleeding or other problems. Gentle range of motion of the hip does not cause pain. She has pain with palpation of the knee. Sh allison has no effusion of the knee. Movement of the knee causes pain. On further speaking with her, it w as felt that definitely encouraged to keep up with her physical therapy. She said that the bleeding yesterday was quite upsetting to her and she is having pain, although she says she thinks the problem is probably mostly her not wanting to participate in therapy. I am not completely sure of this as s he is complaining of increased pain. The origin of her bleeding is most likely from hematoma which h opefully is small and has decompressed. We will see how she does at the end of the day today. If hiram cooper has not improved or participate in therapy, we may consider further diagnostic intervention to incl ude x-ray of the knee as well as the hip. Also may consider discussing with the Hospitalist whether or not we should pursue any alternative measures. /COLLINS Voice ID: [id number] Report ID: [id number]
--- NOTE | 2024-12-04 11:43 | PN ---
Date of Progress Note: 12/04/2024 The patient is seen today. She is in bed. Her dressing has a small amount of spotting at the most s uperior aspect, but definitely is not significantly bleeding. I asked her how she is doing. She say s she is doing much better today. She says she has been going up, back and forth to the bathroom. S he says she will work with physical therapy today, but she will be careful not to do too much accordi ng to her plan. She was told she continue her rehabilitation as she can and all her questions were o therwise answered. On review of notes from psychiatric social worker supervisor, there appears to be some confusion and dif ficulty on discharge planning. She is admitted under the care of the hospitalist, so discharge plann ing will be coordinated between the hospitalist and social work I assume as well as family and insura nce. /COLLINS Voice ID: [id number] Report ID: [id number]
--- NOTE | 2024-12-04 16:16 | P.PN ---
Date of Service: 12/02/24 Subjective Patient is clinically doing well. Patient denies any new complaint. She states that her right hip came out of place and they told her to limit her mobility at this time. Otherwise, she is doing well with no new complaints. Physical Examination - Vital Signs Reviewed - Physical Exam General: Alert, Oriented x3, afebrile Respiratory: Clear to auscultation bilaterally Cardiovascular: No edema, Regular rate/rhythm Gastrointestinal: Normal bowel sounds, Soft and benign, Non-distended Musculoskeletal: No clubbing, No swelling, No contractures Neurological: Weakness of the right leg but otherwise within normal limits Assessment And Plan -Assessment/Plan 1. Patient with dislocation of the right hip status post right total hip arthroplasty; continue with pain control along with physical therapy and DVT prophylaxis. Status tolerated. Further follow-up with orthopedics. Attempted to get patient inpatient rehab. 2. History of essential hypertension and hyperlipidemia; resume antihypertensives and statin therapy 3. Hypokalemia; supplement potassium 4. Disposition: Pending PT/OT evaluation when acute issues resolved 5. Depression; continue Prozac and aripiprazole 6. Microcytic anemia; patient's hemoglobin is stable. Continue monitoring closely. 7. GI and DVT prophylaxis
--- NOTE | 2024-12-04 16:17 | P.PN ---
Date of Service: 12/04/24 Subjective Patient without new complaints. Clinical symptoms are stable. Awaiting for placement. Physical Examination - Vital Signs Reviewed - Physical Exam General: Alert, Oriented x3, afebrile Respiratory: Clear to auscultation bilaterally Cardiovascular: No edema, Regular rate/rhythm Gastrointestinal: Normal bowel sounds, Soft and benign, Non-distended Musculoskeletal: No clubbing, No swelling, No contractures Neurological: Weakness of the right leg but otherwise within normal limits Assessment And Plan -Assessment/Plan 1. Patient with dislocation of the right hip status post right total hip arthroplasty; continue with pain control along with physical therapy and DVT prophylaxis. Status tolerated. Further follow-up with orthopedics. Attempted to get patient inpatient rehab. 2. History of essential hypertension and hyperlipidemia; resume antihypertensives and statin therapy 3. Hypokalemia; supplement potassium 4. Disposition: Pending PT/OT evaluation when acute issues resolved 5. Depression; continue Prozac and aripiprazole 6. Microcytic anemia; patient's hemoglobin is stable. Continue monitoring closely. 7. GI and DVT prophylaxis
--- NOTE | 2024-12-04 16:17 | P.PN ---
Date of Service: 12/03/24 Subjective Patient denies any new complaints. Clinical symptoms are stable. Physical Examination - Vital Signs Reviewed - Physical Exam General: Alert, Oriented x3, afebrile Respiratory: Clear to auscultation bilaterally Cardiovascular: No edema, Regular rate/rhythm Gastrointestinal: Normal bowel sounds, Soft and benign, Non-distended Musculoskeletal: No clubbing, No swelling, No contractures Neurological: Weakness of the right leg but otherwise within normal limits Assessment And Plan -Assessment/Plan 1. Patient with dislocation of the right hip status post right total hip arthroplasty; continue with pain control along with physical therapy and DVT prophylaxis. Status tolerated. Further follow-up with orthopedics. Attempted to get patient inpatient rehab. 2. History of essential hypertension and hyperlipidemia; resume a ntihypertensives and statin therapy 3. Hypokalemia; supplement potassium 4. Disposition: Pending PT/OT evaluation when acute issues resolved 5. Depression; continue Prozac and aripiprazole 6. Microcytic anemia; patient's hemoglobin is stable. Continue monitoring closely. 7. GI and DVT prophylaxis
--- NOTE | 2024-12-05 06:53 | P.PN ---
Date of Service: 12/05/24 Subjective Unsure as to what is taking so long with inpatient rehab placement. Patient apparently was denied and appeal is pending. We advised to find out on 02 December but there is still no word regarding inpatient rehab placement. Will discuss with case management. Physical Examination - Vital Signs Reviewed - Physical Exam General: Alert, Oriented x3, afebrile Gastrointestinal: Normal bowel sounds, Soft and benign, Non-distended Musculoskeletal: Minimal pain on range of motion Neurological: Weakness of the right leg Assessment And Plan -Assessment/Plan 1. Patient with dislocation of the right hip status post right total hip arthroplasty; continue with pain control along with physical therapy and DVT prophylaxis. Status tolerated. Further follow-up with orthopedics. Attempted to get patient inpatient rehab. 2. History of essential hypertension and hyperlipidemia; resume antihypertensives and statin therapy 3. Hypokalemia; supplement potassium 4. Disposition: Pending PT/OT evaluation when acute issues resolved 5. Depression; continue Prozac and aripiprazole 6. Microcytic anemia; patient's hemoglobin is stable. Continue monitoring closely. 7. GI and DVT prophylaxis
[2024-12-06 05:28] LABS: Absolute Eosinophils 0.4 K/uL (0-0.5); Absolute Lymphocytes (CBC) 1.6 K/uL (0.7-4.9); Absolute Monocytes 0.5 K/uL (0.1-1.3); Absolute Neutrophil 4.5 K/uL (1.8-8.0); Basophils % 0.5 % (0-1.3); Eosinophils % 5.1 % (0-4.4); Hematocrit 28.2 % (36.0-45.0); Hemoglobin 9.7 g/dL (12.0-15.0); Lymphocytes % 22.3 % (15.3-44.8); MCH 30.1 pg (27.0-35.0); MCHC 34.5 g/dL (32.0-36.0); MCV 87.4 fL (80-100); MPV 7.4 fL (7.6-11.3); Monocytes % 7.1 % (3.3-12.3); Nucleated Red Blood Cells % 0.1 % (0-0); Platelets 374 thou/uL (152-406); RBC Red Blood Cell Count 3.22 M/uL (3.86-4.86); Red Cell Distribution Width 13.9 % (12.1-15.2)
[2024-12-06 05:46] LABS: Anion Gap 8.4 mEq/L (5.0-15.0); Potassium 3.4 mEq/L (3.5-5.1)
[2024-12-06] MEDS: ALPRAZOLAM 0.5 MG TABLET PO PRN (21:33)
[2024-12-07 04:23] VITALS: O2SAT 96
[2024-12-07] MEDS: HYDROCODONE/APAP 5/325 MG TAB PO PRN (20:06)
--- NOTE | 2024-12-08 04:13 | P.PN ---
Date of Service: 12/06/24 Subjective Patient is stable and waiting for placement as snf facility. Overall patient is much better. Physical Examination - Vital Signs Reviewed - Physical Exam General: Alert, Oriented x3, afebrile Gastrointestinal: Normal bowel sounds, Soft and benign, Non-distended Musculoskeletal: Minimal pain on range of motion Neurological: Weakness of the right leg Assessment And Plan -Assessment/Plan 1. Patient with dislocation of the right hip status post right total hip a rthroplasty; continue with pain control along with physical therapy and DVT prophylaxis. Status tolerated. Further follow-up with orthopedics. Attempted to get patient inpatient rehab. 2. History of essential hypertension and hyperlipidemia; resume antihypertensives and statin therapy 3. Hypokalemia; supplement potassium 4. Disposition: Pending PT/OT evaluation when acute issues resolved 5. Depression; continue Prozac and aripiprazole 6. Microcytic anemia; patient's hemoglobin is stable. Continue monitoring closely. 7. GI and DVT prophylaxis
--- NOTE | 2024-12-08 04:14 | P.PN ---
Date of Service: 12/07/24 Subjective Patient doing any unusual pain. She continues stable. Physical Examination - Vital Signs Reviewed - Physical Exam General: Alert, Oriented x3, afebrile Gastrointestinal: Normal bowel sounds, Soft and benign, Non-distended Musculoskeletal: Minimal pain on range of motion Neurological: Weakness of the right leg Assessment And Plan -Assessment/Plan: Continue with plan of care as mentioned below: 1. Patient with dislocation of the right hip status post right total hip arthroplasty; continue with pain control along with physical therapy and DVT prophylaxis. Status tolerated. Further follow-up with orthopedics. Attempted to get patient inpatient rehab. 2. History of essential hypertension and hyperlipidemia; resume antihypertensives and statin therapy 3. Hypokalemia; supplement potassium 4. Disposition: Pending PT/OT evaluation when acute issues resolved 5. Depression; continue Prozac and aripiprazole 6. Microcytic anemia; patient's hemoglobin is stable. Continue monitoring closely. 7. GI and DVT prophylaxis
[2024-12-08] MEDS: NA CHLORIDE 0.9% 1,000 ML IV SCH ×2 (17:06→18:07)
[2024-12-08] MEDS: NA CHLORIDE 0.9% 250 ML IV ONE (17:24)
[2024-12-08] MEDS: WATER FOR INJ,STERILE 10 ML IV ONE (17:51)
[2024-12-08 18:00] LABS: Absolute Basophils 0.1 K/uL (0-0.5); Absolute Eosinophils 0.6 K/uL (0-0.5); Absolute Lymphocytes (CBC) 2.3 K/uL (0.7-4.9); Absolute Monocytes 0.7 K/uL (0.1-1.3); Absolute Neutrophil 5.3 K/uL (1.8-8.0); Basophils % 1.5 % (0-1.3); Eosinophils % 6.5 % (0-4.4); Hematocrit 30.8 % (36.0-45.0); Hemoglobin 10.5 g/dL (12.0-15.0); Lymphocytes % 25.6 % (15.3-44.8); MCH 30.5 pg (27.0-35.0); MCHC 34.2 g/dL (32.0-36.0); MCV 89.1 fL (80-100); MPV 7.9 fL (7.6-11.3); Monocytes % 7.7 % (3.3-12.3); Neutrophils % 58.7 % (41.7-73.7); Platelets 371 thou/uL (152-406); RBC Red Blood Cell Count 3.46 M/uL (3.86-4.86); Red Cell Distribution Width 14.8 % (12.1-15.2)
[2024-12-08] MEDS: HYDROCORTISONE SUC 100 MG INJ IV ONE (18:06)
[2024-12-08 18:14] LABS: Anion Gap 7.8 mEq/L (5.0-15.0); Potassium 3.8 mEq/L (3.5-5.1)
--- NOTE | 2024-12-09 04:16 | P.PN ---
Date of Service: 12/08/24 Subjective Patient blood pressure was a little soft. Patient does have eosinophilia. Medications will be reviewed. Physical Examination - Vital Signs Reviewed - Physical Exam General: Alert, Oriented x3, afebrile Gastrointestinal: Normal bowel sounds, Soft and benign, Non-distended Musculoskeletal: Minimal pain on range of motion Neurological: Weakness of the right leg Assessment And Plan -Assessment/Plan: Continue with plan of care as mentioned below: 1. Patient with dislocation of the right hip status post right total hip arthroplasty; continue with pain control along with physical therapy and DVT prophylaxis. Status tolerated. Further follow-up with orthopedics. Attempted to get patient inpatient rehab.Appeal is pending. If this is denied patient wants to go home with home health 2. History of essential hypertension and hyperlipidemia; resume antihyp ertensives and statin therapy 3. Hypokalemia; supplement potassium 4. Disposition: Pending PT/OT evaluation when acute issues resolved 5. Depression; continue Prozac and aripiprazole 6. Microcytic anemia; patient's hemoglobin is stable. Continue monitoring closely. 7. GI and DVT prophylaxis
[2024-12-09] MEDS: ENSURE MAX PROTEIN 330 ML LIQUID PO SCH (07:30)
[2024-12-09] MEDS: HYDROCODONE/APAP 5/325 MG TAB PO PRN (09:49)
[2024-12-09] MEDS: NA CHLORIDE 0.9% 500 ML IV ONE (11:30)
[2024-12-09 11:39] LABS: Absolute Basophils 0.1 K/uL (0-0.5); Absolute Eosinophils 0.3 K/uL (0-0.5); Absolute Lymphocytes (CBC) 2.4 K/uL (0.7-4.9); Absolute Monocytes 0.8 K/uL (0.1-1.3); Absolute Neutrophil 7.1 K/uL (1.8-8.0); Basophils % 0.9 % (0-1.3); Hematocrit 27.6 % (36.0-45.0); Hemoglobin 9.4 g/dL (12.0-15.0); Lymphocytes % 22.2 % (15.3-44.8); MCH 30.4 pg (27.0-35.0); MCV 89.4 fL (80-100); MPV 7.7 fL (7.6-11.3); Monocytes % 7.3 % (3.3-12.3); Neutrophils % 66.6 % (41.7-73.7); Platelets 318 thou/uL (152-406); RBC Red Blood Cell Count 3.09 M/uL (3.86-4.86); Red Cell Distribution Width 14.7 % (12.1-15.2)
[2024-12-09 12:06] LABS: Anion Gap 6.5 mEq/L (5.0-15.0); Potassium 3.5 mEq/L (3.5-5.1); Thyroid Stimulating Hormone 0.809 uIU/mL (0.358-3.740)
--- NOTE | 2024-12-09 13:56 | P.PN ---
Subjective Date of Service: 12/09/24 Chief Complaint: Right hip pain Subjective: No chest pain or shortness of breath. No nausea or vomiting. No abdominal pain. No obvious bleeding. Looks comfortable in the bed. hip pain controlled. Objective: General appearance: Alert and comfortable CVS: Normal S1 and S2 Lungs: Clear to auscultation bilaterally Abdomen: Soft, bowel sounds present, no tenderness Extremities: No lower extremity edema Physical Examination - Vital Signs Temperature: 98.1 F Blood Pressure: 78/50 Pulse: 58 Respirations: 17 Pulse Ox (%): 94 Assessment And Plan - Plan 1. Patient with dislocation of the right hip status post right total hip arthroplasty; continue with pain control along with physical therapy and DVT prophylaxis. - Further follow-up with orthopedics. -Attempted to get patient inpatient rehab.Appeal is pending. 2. Hyperlipidemia: cont statin 3. Hypokalemia; replaced 4. Disposition: rehab vs HH 5. Depression; continue Prozac and aripiprazole 6. Acute blood loss anemia; patient's hemoglobin is stable. Continue monitoring closely. 7. Hypotension: Seems somewhat chronic, no symptoms, given fluids but no significant improvement, TSH and cortisol level normal, monitor closely. 8. possible pneumonia on chest x-ray, finished antibiotics. 64 year old patient with hip dislocation, status post surgery, possible pneumonia chest x-ray, finished antibiotics.
[2024-12-09] MEDS: ATORVASTATIN 10 MG TAB PO SCH (20:20)
[2024-12-09] MEDS: ALPRAZOLAM 0.5 MG TABLET PO PRN (20:24)
[2024-12-10 05:29] LABS: Absolute Basophils 0.1 K/uL (0-0.5); Absolute Eosinophils 0.4 K/uL (0-0.5); Absolute Lymphocytes (CBC) 1.6 K/uL (0.7-4.9); Absolute Monocytes 0.5 K/uL (0.1-1.3); Basophils % 1.2 % (0-1.3); Eosinophils % 5.9 % (0-4.4); Hematocrit 28.8 % (36.0-45.0); Hemoglobin 9.9 g/dL (12.0-15.0); Lymphocytes % 24.6 % (15.3-44.8); MCH 30.1 pg (27.0-35.0); MCHC 34.2 g/dL (32.0-36.0); MCV 88.1 fL (80-100); MPV 7.5 fL (7.6-11.3); Neutrophils % 60.3 % (41.7-73.7); Nucleated Red Blood Cells % 0.2 % (0-0); Platelets 320 thou/uL (152-406); RBC Red Blood Cell Count 3.27 M/uL (3.86-4.86); Red Cell Distribution Width 14.5 % (12.1-15.2)
[2024-12-10 05:58] LABS: Anion Gap 8.8 mEq/L (5.0-15.0); Potassium 3.8 mEq/L (3.5-5.1)
[2024-12-10 08:55] VITALS: BP 94/60; TEMP 97.8
--- NOTE | 2024-12-10 09:54 | P.DS ---
Admission Date: 11/26/24 Discharge Date: 12/10/24 Disposition: DC HOME/HOME HEALTH CARE Discharge Condition: GOOD Reason for Admission: Right hip pain Hospital Course: Discharge diagnosis: 1. Patient with dislocation of the right hip status post right total hip arthroplasty - follow-up with orthopedics. -Attempted to get patient inpatient rehab but insurance declined -DC home with HH 2. Hyperlipidemia: cont statin 3. Hypokalemia; replaced 4. Disposition: home with HH 5. Depression; continue Prozac and aripiprazole 6. Acute blood loss anemia; patient's hemoglobin is stable. f/u with PCP 7. Hypotension: Seems somewhat chronic, no symptoms, given fluids but no significant improvement, TSH and cortisol level normal, f/u with PCP 8. possible pneumonia on chest x-ray, finished antibiotics. Hospital course: 64 year old patient with hip dislocation, status post surgery, there was some concern of pneumonia on chest x-ray, finished antibiotics. Physical therapy was following, initial plan was to discharge her to rehab but unfortunately insurance declined rehab placement, patient agreed to go home with home health, when I see the patient today she is doing well without acute problems, feels ready to go home, discussed with case management and social workers, will set up home health and discharge her to go home. Her blood pressure is soft, no symptoms, as per patient and family, hypotension is somewhat chronic, blood pressure has been stable at baseline in the last few days. Subjective: No chest pain or shortness of breath. No nausea or vomiting. No abdominal pain. No obvious bleeding. Looks comfortable in the bed. hip pain controlled. Objective: General appearance: Alert and comfortable CVS: Normal S1 and S2 Lungs: Clear to auscultation bilaterally Abdomen: Soft, bowel sounds present, no tenderness Extremities: No lower extremity edema Vital Signs/Physical Exam: Temp Pulse Resp BP Pulse Ox 97.8 F 74 16 94/60 93 12/10/24 08:00 12/10/24 08:00 12/10/24 08:00 12/10/24 08:00 12/10/24 08:00 Laboratory Data at Discharge: WBC 6.60 thou/uL (4.3-10.9) 12/10/24 05:09 Hgb 9.9 g/dL (12.0-15.0) L 12/10/24 05:09 Hct 28.8 % (36.0-45.0) L 12/10/24 05:09 Plt Count 320 thou/uL (152-406) 12/10/24 05:09 PT 12.5 SECONDS (10-13.0) 11/26/24 18:30 INR 1.10 11/26/24 18:30 Sodium 138 mEq/L (136-145) 12/10/24 05:09 Potassium 3.8 mEq/L (3.5-5.1) 12/10/24 05:09 BUN 17 mg/dL (7-18) 12/10/24 05:09 Creatinine 0.67 mg/dL (0.55-1.02) 12/10/24 05:09 Glucose 87 mg/dL (74-106) 12/10/24 05:09 Total Bilirubin 0.2 mg/dL (0.2-1.0) 11/29/24 05:34 AST 13 U/L (15-37) L 11/29/24 05:34 ALT 15 U/L (13-56) 11/29/24 05:34 Alkaline Phosphatase 60 U/L (45-117) 11/29/24 05:34 Home Medications: ALPRAZolam [Alprazolam] 0.5 mg PO BIDP PRN 10/03/24 ARIPiprazole [Aripiprazole] 2 mg PO DAILY 10/03/24 Aspirin [Aspirin Regimen] 81 mg PO DAILY 10/03/24 Buprenorphine HCl/Naloxone HCl [Buprenorphine-Nalox 8-2 mg Tab] 1 each SL BID 10/03/24 Cholecalciferol (Vitamin D3) [Vitamin D3] 125 mcg PO DAILY 10/03/24 Cyanocobalamin (Vitamin B-12) [Vitamin B12] 1,000 mcg PO DAILY 10/03/24 Ferrous Sulfate 325 mg PO SEECOM 10/03/24 Fluoxetine HCl [Prozac] 40 mg PO DAILY 10/03/24 Ibuprofen [Advil] 200 mg PO TID PRN 10/03/24 Simvastatin 20 mg PO BEDTIME 10/03/24 Diet: Regular Activity: Ad cassie Followup: Gabbi Tuttle [Primary Care Provider] - 1 Week (f/u with PCP in 1 week with CBC and CMP) Chapito Leary MD [ACTIVE - CAN ADMIT] - 1 Week Time spent managing pt's care (in minutes): 34
== END 2024-12-10 10:51 | disposition home health service (06) | DRG 480 ==
LOC: ER 12:49 → 2ND 19:22
PROVIDERS: ADMIT Internal Medicine; ATTEND Hospitalist
PROC: 0T9B70Z Drainage of Bladder with Drainage Device, Via Natural or Artificial Opening (ICD-10-PCS; 2024-11-27)
PROC: 0QS604Z Reposition Right Upper Femur with Internal Fixation Device, Open Approach (ICD-10-PCS; principal; 2024-11-28 10:30)
DX: T84.020A Dislocation of internal right hip prosthesis, initial encounter (principal); J18.9 Pneumonia, unspecified organism; D62 Acute posthemorrhagic anemia; I10 Essential (primary) hypertension; E87.6 Hypokalemia; F32.A Depression, unspecified; D72.10 Eosinophilia, unspecified; D50.9 Iron deficiency anemia, unspecified; E78.00 Pure hypercholesterolemia, unspecified; F17.210 Nicotine dependence, cigarettes, uncomplicated; Z79.82 Long term (current) use of aspirin; Z86.73 Personal history of transient ischemic attack (TIA), and cerebral infarction without residual deficits; Z96.652 Presence of left artificial knee joint; Z79.899 Other long term (current) drug therapy
CPT/HCPCS: 36415; 71045; 72170; 80048; 80053; 80076; 81003; 82533; 82947; 83605; 83880; 84443; 84484; 85025; 85610; 93005; 97110; 97116; 97161; 97530; 99285; J0171; J0690; J1100; J1650; J1720; J2003; J2270; J2405; J2704; J3010; J7030; J7040; J7120

== ENCOUNTER 2025-01-12 15:15 | Emergency (ER) | payer OTHER ==
[2025-01-12] MEDS ORDERED: HYDROCODONE/APAP 5/325 MG TAB ONE (15:35)
--- NOTE | 2025-01-12 16:20 | RAD REPORT ---
Exam:Hip Right 2 View HISTORY: Right hip pain FINDINGS: Right hip arthroplasty Superior-lateral dislocation right femur. No fracture seen.
--- NOTE | 2025-01-12 18:09 | EDPHYS ---
Physician Documentation [facility] Name: Kelly Reddy Age: 64 yrs Sex: Female : 1960 Arrival Date: 01/12/2025 Time: 15:15 Bed 12 Private MD: ED Physician Jhon Hutchins HPI: 01/12 16:23 This 64 yrs old Female presents to ER via EMS with complaints of Hip Injury. dr5 16:23 The patient or guardian reports an injury. Patient is a 61-year-old female with history dr5 of anemia, chronic back pain, hyperlipidemia, chronic right hip dislocation coming in with fall yesterday from bed onto right hip. Patient reports that she has had multiple surgeries and hardware put into the right hip. Patient states that she is having pain when trying to ambulate and bear weight on right leg.. Historical: - Allergies: 15:20 Iodine; hb - PMHx: 15:20 Anemia; Bladder problem; chronic back pain; depressive disorder; Hypercholesterolemia; hb Hypertension; spinal stenosis; - PSHx: 15:20 hip replacement; tubal ligation; hb - Immunization history:: Adult Immunizations up to date. - Infectious Disease History:: Denies. - Social history:: Smoking status: Patient denies any tobacco usage or history of. ROS: 16:23 Constitutional: as per hpi dr5 Exam: 16:23 Constitutional: This is a well developed, well nourished patient who is awake, alert, dr5 and in no acute distress. Head/Face: Normocephalic, atraumatic. Eyes: Pupils equal round and reactive to light, extra-ocular motions intact. Lids and lashes normal. Conjunctiva and sclera are non-icteric and not injected. Cornea within normal limits. Periorbital areas with no swelling, redness, or edema. Neck: Trachea midline, no thyromegaly or masses palpated, and no cervical lymphadenopathy. Supple, full range of motion without nuchal rigidity, or vertebral point tenderness. No Meningismus. Chest/axilla: Normal chest wall appearance and motion. Nontender with no deformity. No lesions are appreciated. Cardiovascular: Regular rate and rhythm with a normal S1 and S2. Normal PMI, no JVD. No pulse deficits. Respiratory: Lungs have equal breath sounds bilaterally, clear to auscultation. No rales, rhonchi or wheezes noted. No increased work of breathing, no retractions or nasal flaring. Back: No spinal tenderness. No costovertebral tenderness. Full range of motion. Skin: Warm, dry with normal turgor. Normal color with no rashes, no lesions, and no evidence of cellulitis. Neuro: Awake and alert, GCS 15, oriented to person, place, time, and situation. Cranial nerves II-XII grossly intact. Motor strength 5/5 in all extremities. Sensory grossly intact. Cerebellar exam normal. Normal gait. 16:23 Musculoskeletal/extremity: Extremities: pain, swelling, tenderness, ROM: no acute changes, Circulation is intact in all extremities. Vital Signs: 15:19 BP 103 / 73; Pulse 92; Resp 16; Temp 98.3(O); Pulse Ox 97% on R/A; Weight 68.04 kg; hb Height 5 ft. 6 in. ; Pain 7/10; 16:30 BP 92 / 68; Pulse 76; Resp 16; Pulse Ox 97% on R/A; dd2 17:30 BP 94 / 69; Pulse 73; Resp 15; Temp 98.3; Pulse Ox 98% on R/A; dd2 15:19 Body Mass Index 24.21 (68.04 kg, 167.64 cm) hb 15:19 Pain Scale: Adult hb Rosie Coma Score: 15:43 Eye Response: spontaneous(4). Motor Response: obeys commands(6). Verbal Response: dd2 oriented(5). Total: 15. MDM: 15:19 Medical Screening Exam initiated dr5 18:14 Differential diagnosis: hip fracture, intertrochanteric fracture, femoral neck dr5 fracture, femoral shaft fracture. Data reviewed: vital signs, nurses notes. Consideration of Admission/Observation Patient was admitted/placed on observation. Management of patient was discussed with the following: Upholsterer Inside: Dr. Leary. Discussed case with and he recommended patient be transferred downtown since he is not able to give any more interventions.. Care significantly affected by the following Social Determinants of Health: Poor access to healthcare and/or lack of insurance, Poor access to transportation, Problems related to employment. Counseling: I had a detailed discussion with the patient and/or guardian regarding the historical points, exam findings, and any diagnostic results supporting the discharge/admit diagnosis, the presence of at least one elevated blood pressure reading (>120/80) during this emergency department visit, the need to transfer to another facility, for higher level of care, [facility] does not immediately have the required specialist, Orthopedics not on today. ED course: Will transfer patient to [facility]. All questions answered. 01/12 17:27 Order name: CBC with Diff; Complete Time: 18:43 dr5 01/12 17:27 Order name: CMP dr5 01/12 15:19 Order name: Hip Right 2 View XRAY; Complete Time: 16:21 dr5 Administered Medications: 15:36 Drug: HYDROcodone-acetaminophen PO 5 mg-325 mg 2 tabs PO once Route: PO; dd2 16:00 Follow up: Response: No adverse reaction dd2 Disposition: 16:58 I was immediately available on-site in the Emergency Department for consultation in the me3 care of the patient. Disposition Summary: 01/12/25 18:09 Transfer Ordered Notes: Transfer Location: [facility] dr5 Reason: Higher level of care dr5 Condition: Stable dr5 Problem: new dr5 Symptoms: have worsened dr5 Accepting Physician: Martínez Jasso(01/12/25 20:42) dd2 Diagnosis - Unspecified dislocation of right hip, subsequent encounter dr5 Discharge Instructions: - Discharge Summary Sheet sp Forms: - SBAR form sp - Medication Reconciliation Form dr5 Signatures: Dispatcher [employer] EDMS Catalina Bustamante, RN RN Jhon Valerio DO DO ms3 JORGE LUIS DURBIN RN RN dd2 Leonardo Mccormick, MEAL COOK-C MEAL COOK-Cdr5 Corrections: (The following items were deleted from the chart) 20:42 18:09 [facility] dr5 dd2
--- NOTE | 2025-01-12 18:09 | ER ---
Nurse's Notes [facility] Name: Kelly Reddy Age: 64 yrs Sex: Female : 1960 Arrival Date: 01/12/2025 Time: 15:15 Bed 12 Private MD: Diagnosis: Unspecified dislocation of right hip, subsequent encounter Presentation: 01/12 15:19 Chief complaint: Right hip pain after fall out of bed last night. Hx of right hip hb dislocation and surgery x 2. Coronavirus screen: At this time, the client does not indicate any symptoms associated with coronavirus-19. Ebola Screen: No symptoms or risks identified at this time. Initial Sepsis Screen: Does the patient meet any 2 criteria? No. Patient's initial sepsis screen is negative. Does the patient have a suspected source of infection? No. Patient's initial sepsis screen is negative. Risk Assessment: Do you want to hurt yourself or someone else? Patient reports no desire to harm self or others. Onset of symptoms was January 11, 2025. 15:19 Method Of Arrival: EMS: [facility] hb 15:19 Acuity: JESSICA 3 hb Historical: - Allergies: 15:20 Iodine; hb - PMHx: 15:20 Anemia; Bladder problem; chronic back pain; depressive disorder; Hypercholesterolemia; hb Hypertension; spinal stenosis; - PSHx: 15:20 hip replacement; tubal ligation; hb - Immunization history:: Adult Immunizations up to date. - Infectious Disease History:: Denies. - Social history:: Smoking status: Patient denies any tobacco usage or history of. Screenin:43 [facility] ED Fall Risk Assessment (Adult) History of falling in the last 3 months, dd2 including since admission Yes- fall prone (multiple falls) (3 pts) Confusion or Disorientation No (0 pts) Intoxicated or Sedated No (0 pts) Impaired Gait Yes (1 pt) Mobility Assist Device Used Yes (1 pt) Altered Elimination No (0 pt) Score/Fall Risk Level 3 or more points = High Risk Oriented to surroundings, Maintained a safe environment, Educated pt \T\ family on fall prevention, incl call for assistance when getting out of bed, Assessed \T\ reinforced patient's understanding of fall precautions, Hourly rounding (assess needs \T\ fall precautionary measures) done, Used ambulatory aids as needed (educated on \T\ assisted with). Abuse screen: Denies threats or abuse. Denies injuries from another. Nutritional screening: No deficits noted. Tuberculosis screening: No symptoms or risk factors identified. Assessment: 15:43 General: Appears in no apparent distress. uncomfortable, Behavior is calm, cooperative, dd2 appropriate for age. Pain: Complains of pain in right hip. Neuro: No deficits noted. Level of Consciousness is awake, alert, obeys commands, Oriented to person, place, time, situation, Appropriate for age. Cardiovascular: No deficits noted. Respiratory: No deficits noted. Airway is patent Respiratory effort is even, unlabored, Respiratory pattern is regular, symmetrical. GI: No deficits noted. No signs and/or symptoms were reported involving the gastrointestinal system. : No deficits noted. No signs and/or symptoms were reported regarding the genitourinary system. EENT: No deficits noted. No signs and/or symptoms were reported regarding the EENT system. Derm: No deficits noted. No signs and/or symptoms reported regarding the dermatologic system. Musculoskeletal: Bony deformity noted of right hip RLE SHORTENING Reports pain in right hip. Injury Description: Deformity sustained to right hip is dislocated, was sustained 6-12 hours ago. Vital Signs: 15:19 BP 103 / 73; Pulse 92; Resp 16; Temp 98.3(O); Pulse Ox 97% on R/A; Weight 68.04 kg; hb Height 5 ft. 6 in. ; Pain 7/10; 16:30 BP 92 / 68; Pulse 76; Resp 16; Pulse Ox 97% on R/A; dd2 17:30 BP 94 / 69; Pulse 73; Resp 15; Temp 98.3; Pulse Ox 98% on R/A; dd2 15:19 Body Mass Index 24.21 (68.04 kg, 167.64 cm) hb 15:19 Pain Scale: Adult hb Emeigh Coma Score: 15:43 Eye Response: spontaneous(4). Motor Response: obeys commands(6). Verbal Response: dd2 oriented(5). Total: 15. ED Course: 15:18 Patient arrived in ED. hb 15:18 [facility] 15:18 Jhon Hutchins DO is Attending Physician. dr5 15:20 Triage completed. hb 15:25 Arm band placed on. hb 15:32 JORGE LUIS DURBIN, RN is Primary Nurse. dd2 15:36 Hip Right 2 View XRAY In Process Unspecified. EDMS 15:43 Patient has correct armband on for positive identification. Bed in low position. Call dd2 light in reach. Side rails up X2. Client placed on continuous cardiac and pulse oximetry monitoring. NIBP monitoring applied. Door closed. Noise minimized. Warm blanket given. Pillow given. Verbal reassurance given. 15:43 No provider procedures requiring assistance completed. X-ray(s) taken. Patient did not dd2 have IV access during this emergency room visit. Patient maintains SpO2 saturation greater than 95% on room air. 17:41 [id number] called [facility] for Transfer talked to Lissett Kyle 174 Dr. Luisito Villasenor accepted pt to [facility] 1748 admin approval 1748 Lissett Kyle. 18:08 CMP Sent. [facility] 18:08 CBC with Diff Sent. [facility] 18:08 Initial lab(s) drawn, by de, sent to lab. Inserted saline lock: 20 gauge in left [facility] antecubital area, using aseptic technique. Blood collected. Flushed with 10 mL NS. 20:41 Provided Education on: TRANSFER EDUCATION. dd2 20:41 Patient transferred, IV remains in place. dd2 Administered Medications: 15:36 Drug: HYDROcodone-acetaminophen PO 5 mg-325 mg 2 tabs PO once Route: PO; dd2 16:00 Follow up: Response: No adverse reaction dd2 Medication: 15:43 VIS not applicable for this client. dd2 Outcome: 18:09 ER care complete, transfer ordered by . dr5 20:41 Transferred by ground EMS to [facility], Transfer form completed. dd2 20:41 Condition: stable 20:41 Instructed on the need for transfer, Demonstrated understanding of instructions, 20:42 Patient left the ED. dd2 Signatures: Dispatcher [employer] EDMS Jazmín Mendosa Heather, RUTH RN Rebekah Grewal [facility] JORGE LUIS DURBIN, RN RN dd2 Leonardo Mccormick, INFORMATION RESOURCE CONSULTANT-C INFORMATION RESOURCE CONSULTANT-Cdr5
[2025-01-12 18:24] LABS: Absolute Basophils 0.1 K/uL (0-0.5); Absolute Eosinophils 0.1 K/uL (0-0.5); Absolute Lymphocytes (CBC) 1.8 K/uL (0.7-4.9); Absolute Monocytes 0.8 K/uL (0.1-1.3); Absolute Neutrophil 5.8 K/uL (1.8-8.0); Basophils % 0.6 % (0-1.3); Eosinophils % 0.7 % (0-4.4); Hematocrit 33.1 % (36.0-45.0); Hemoglobin 11.1 g/dL (12.0-15.0); Lymphocytes % 21.1 % (15.3-44.8); MCH 29.1 pg (27.0-35.0); MCHC 33.4 g/dL (32.0-36.0); MCV 87.3 fL (80-100); MPV 7.8 fL (7.6-11.3); Monocytes % 9.6 % (3.3-12.3); Platelets 283 thou/uL (152-406); Red Cell Distribution Width 13.8 % (12.1-15.2)
[2025-01-12 18:44] LABS: AST/SGOT 16 U/L (15-37); Albumin 3.1 g/dL (3.4-5.0); Albumin/Globulin Ratio 0.8 (1.1-1.8); Alkaline Phosphatase 78 U/L (45-117); Anion Gap 8.8 mEq/L (5.0-15.0); BUN Blood Urea Nitrogen 14 mg/dL (7-18); Bicarbonate 29 mEq/L (21-32); Bilirubin Total 0.8 mg/dL (0.2-1.0); Globulin 3.9 g/dL (2.3-3.5); Glomerular Filtration Rate 65 ml/min (=/>90); Glucose Level 111 mg/dL (74-106); Potassium 3.8 mEq/L (3.5-5.1); Sodium Level 135 mEq/L (136-145)
[2025-01-12 19:05] LABS: ALT/SGPT < 14 U/L (13-56)
[2025-01-12 21:09] VITALS: TEMP 98.3
[2025-01-12 21:12] VITALS: BP 94/69; O2SAT 98
== END 2025-01-12 20:42 | disposition short-term general hospital (02) ==
LOC: ER 15:15
DX: M25.551 Pain in right hip (principal); S73.004D Unspecified dislocation of right hip, subsequent encounter; Z96.641 Presence of right artificial hip joint
CPT/HCPCS: 36415; 80053; 85025; 99285